=== PATIENT | female | born 1940 | race American Indian/Alaskan Native ===

== ENCOUNTER 2016-11-15 23:25 | Emergency (ER) | payer MEDICARE, OTHER ==
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
[2016-11-15 23:59] VITALS: TEMP 97.4
[2016-11-16 00:20] VITALS: RESP 18
[2016-11-16 00:45] VITALS: O2SAT 95
[2016-11-16 02:36] VITALS: BP 156/86; PULSE 73
== END 2016-11-16 02:35 | disposition home or self-care (01) ==
LOC: C.ER 23:25
DX: Z77.098 Contact with and (suspected) exposure to other hazardous, chiefly nonmedicinal, chemicals (principal)

== ENCOUNTER 2018-03-03 21:26 | Inpatient (IN) | payer MEDICARE, OTHER ==
--- NOTE | 2018-03-03 21:46 | C.PDOC ---
History Of Present Illness 77 y/o female brought by EMS from half-way for abnormal blood work. Patient is awake and alert, but non-verbal. Time Seen by Provider: 03/03/18 21:46 History Per: EMS History/Exam Limitations: clinical condition Onset/Duration Of Symptoms: Days Current Symptoms Are (Timing): Still Present Severity: Moderate Reports Recently: Seen In ED, Treated By A Physician, Hospitalized Recent travel outside of the [place]: No Additional History Per: EMS, Long Term Past Medical History Reviewed: Historical Data, Nursing Documentation, Vital Signs Vital Signs: Last Vital Signs Temp 97.6 F 03/03/18 21:44 Pulse 86 03/03/18 21:44 Resp 18 03/03/18 21:44 BP 143/80 03/03/18 21:44 Pulse Ox 100 03/03/18 23:21 - Medical History PMH: HTN, Chronic Kidney Disease Family History: States: Unknown Family Hx - Social History Hx Alcohol Use: No Hx Substance Use: No - Immunization History Hx Tetanus Toxoid Vaccination: No Hx Influenza Vaccination: No Hx Pneumococcal Vaccination: No Review Of Systems Review Of Systems: ROS cannot be obtained secondary to pt's inabilty to answer questions. (Patient is non-verbal) Physical Exam - Physical Exam Appears: Non-toxic Skin: Warm, Dry Head: Normacephalic Eye(s): bilateral: Normal Inspection Oral Mucosa: Dry Teeth: Edentulous Neck: Supple Chest: Symmetrical Cardiovascular: Rhythm Regular Respiratory: No Rales, No Rhonchi, No Wheezing Gastrointestinal/Abdominal: Bowel Sounds, Soft, No Tenderness Back: No CVA Tenderness Pelvic: Other (Indwelling Flores ) Extremity: Other (Arms and legs contracted) Extremity: Bilateral: Atraumatic, Normal Color And Temperature Pulses: Left Dorsalis Pedis: Normal, Right Dorsalis Pedis: Normal Neurological/Psych: Other (non verbal) Gait: Unable To Assess ED Course And Treatment - Laboratory Results Result Diagrams: 03/03/18 22:03 03/03/18 22:03 ECG: Interpreted By Me, Viewed By Me ECG Rhythm: Sinus Rhythm (85), Nonspecific Changes (left axis deviation) O2 Sat by Pulse Oximetry: 100 (RA) Pulse Ox Interpretation: Normal - Radiology CXR: Interpreted by Me, Viewed By Me CXR Interpretation: Yes: Other (sevcerely rotated). No: Infiltrates, Fracture, Pnemothorax Progress Note: Administered IV fluids. Ordered blood work, blood culture, CXR, and EKG. Disposition Discussed With Dr.: Josie Reyes Comment: accepted the pt on his service and took ove the care at 11:48 PM Doctor Will See Patient In The: Hospital Counseled Patient/Family Regarding: Studies Performed, Diagnosis - Disposition Disposition: HOSPITALIZED Disposition Time: 21:46 Condition: FAIR - POA Present On Arrival: Poor Glycemic Control - Clinical Impression Clinical Impression: Hypernatremia, Severe dehydration, Renal insufficiency - Scribe Statement The provider has reviewed the documentation as recorded by the Scribe Ellie Castrejon All medical record entries made by the Scribe were at my direction and personally dictated by me. I have reviewed the chart and agree that the record accurately reflects my personal performance of the history, physical exam, medical decision making, and the department course for this patient. I have also personally directed, reviewed, and agree with the discharge instructions and disposition. Decision To Admit - Pt Status Changed To: Hospital Disposition Of: Inpatient - Admit Certification Admit to Inpatient:: After my assessment, the patient will require hospitalization for at least two midnights. This is because of the severity of symptoms shown, intensity of services needed, and/or the medical risk in this patient being treated as an outpatient. - InPatient: Physician Admission Certification: I certify that this patient requires 2 or more midnights of care for the following reason:: After my assessment, the patient will require hospitalization for at least two midnights. This is because of the severity of symptoms shown, intensity of services needed, and/or the medical risk in this patient being treated as an outpatient. - . Bed Request Type: Telemetry Admitting Physician: Josie Reyes Patient Diagnosis: Hypernatremia, Severe dehydration, Renal insufficiency
[2018-03-03 21:57] VITALS: BMI 39.1
[2018-03-03 22:10] LABS: BASO # 0.1 K/uL (0.0-0.2); BASO % 0.7 % (0.0-2.0); EOS # 0.2 K/uL (0.0-0.7); HEMOGLOBIN 11.8 g/dL (11.0-16.0); LYMPH # 1.9 K/uL (1.0-4.3); LYMPH % 11.2 % (20.0-40.0); MEAN CELL VOLUME 92.7 fL (81.0-99.0); MEAN CORPUSCULAR HEMOGLOBIN 29.9 pg (27.0-31.0); MEAN CORPUSCULAR HGB CONC 32.3 g/dL (33.0-37.0); MEAN PLATELET VOLUME 8.2 fL (7.2-11.7); MONO # 0.8 K/uL (0.0-0.8); MONO % 4.7 % (0.0-10.0); NEUT # 13.9 K/uL (1.8-7.0); NEUT % 82.4 % (50.0-75.0); RBC 3.94 Mil/uL (3.80-5.20); RED CELL DISTRIBUTION WIDTH 15.7 % (11.5-14.5); WHITE BLOOD COUNT 16.8 K/uL (4.8-10.8)
[2018-03-03 22:25] LABS: INR 1.1; PROTHROMBIN TIME 12.1 SECONDS (9.7-12.2)
[2018-03-03 22:42] LABS: ALB/GLOB RATIO 1.1 (1.0-2.1); ALBUMIN 3.8 g/dL (3.5-5.0); CALCIUM 8.9 mg/dl (8.6-10.4)
[2018-03-03] MEDS: Sodium Chloride 0.9% 1,000 ML IV ONE (23:12)
[2018-03-03] MEDS ORDERED: Moxifloxacin IV 400mg/250ml NS 400 MG/250 ML BAG IVPB ONE (23:45)
[2018-03-03] MEDS ORDERED: Sodium Chloride 0.45% 1,000 ML IV SCH (23:45)
--- NOTE | 2018-03-04 02:04 | PCM.RRT ---
CO[facility] Nurses Assessment - Situation Date: 03/04/18 Time COATER HAND was called: 01:56 - Constitutional Appears: Unkempt, Chronically Ill - Eyes Additional Comments: Patient opens eyes to sternal rub, otherwise, keeps eyes closed and will not allow examination. - Respiratory Exam Respiratory Exam: Decreased Breath Sounds, NORMAL BREATHING PATTERN. absent: Rales, Rhonchi, Wheezes - Cardiovascular Exam Cardiovascular Exam: REGULAR RHYTHM, +S1, +S2 - GI/Abdominal Exam GI & Abdominal Exam: Soft, Normal Bowel Sounds - Neurological Exam Additional exam: Unable to examine- patient is aphasic, does not follow commands; opens eyes to sternal rub. - Extremities Exam Additional comments: Contracted upper extremities Plan - Assessment of Findings&Treatment Plan COATER HAND was called at 1:56am for hypotension. Patient was admitted for severe dehydration and just transferred to the floors. Vitals were taken when transferred to bed 653A and were 50/37, HR 76. Repeat BP was 52/36. Patient was placed on NS@200mls/hr in the ED. IV Fluids were continued at 200mls/hr. Patient was placed in trendelenburgs position. BP was rechecked- Right arm 85/60 , right leg 71/39. Bolus of 500cc started. Blood pressure post bolus: Right arm 80/51 HR 75, Right leg 108/69, HR 74. Patient is alert, eyes are open, and said "hi" in response to saying hello to her. Will continue NS@200mls/hr and reevaluate. BMP and CPK ordered stat. Home medication Amlodipine on hold.
[2018-03-04 02:46] LABS: URINE BACTERIA OCC (<OCC); URINE BILIRUBIN NEGATIVE (NEGATIVE); URINE BLOOD 3+ (NEGATIVE); URINE CLARITY Turbid (Clear); URINE GLUCOSE (UA) NORMAL (Normal); URINE LEUKOCYTE ESTERASE 3+ Leu/uL (Negative); URINE PROTEIN 2+ mg/dL (NEGATIVE); URINE UROBILINOGEN NORMAL mg/dL (0.2-1.0); WBC CLUMPS MANY /hpf
[2018-03-04 03:01] LABS: ALB/GLOB RATIO 1.1 (1.0-2.1); ALBUMIN 3.4 g/dL (3.5-5.0); CALCIUM 8.6 mg/dl (8.6-10.4)
[2018-03-04 03:06] LABS: CK-MB 7.43 ng/mL (0.0-3.38); TROPONIN I 0.116 ng/mL (0.00-0.120)
[2018-03-04 03:28] LABS: URINE COLOR RED (YELLOW)
[2018-03-04 06:21] LABS: BASO # 0.1 K/uL (0.0-0.2); BASO % 0.7 % (0.0-2.0); EOS # 0.2 K/uL (0.0-0.7); EOS % 1.3 % (0.0-4.0); HEMOGLOBIN 10.8 g/dL (11.0-16.0); LYMPH # 1.7 K/uL (1.0-4.3); LYMPH % 12.1 % (20.0-40.0); MEAN CELL VOLUME 92.4 fL (81.0-99.0); MEAN CORPUSCULAR HEMOGLOBIN 29.9 pg (27.0-31.0); MEAN CORPUSCULAR HGB CONC 32.4 g/dL (33.0-37.0); MEAN PLATELET VOLUME 8.4 fL (7.2-11.7); MONO # 0.7 K/uL (0.0-0.8); MONO % 5.3 % (0.0-10.0); NEUT # 11.2 K/uL (1.8-7.0); NEUT % 80.6 % (50.0-75.0); RBC 3.61 Mil/uL (3.80-5.20); RED CELL DISTRIBUTION WIDTH 15.6 % (11.5-14.5); WHITE BLOOD COUNT 13.9 K/uL (4.8-10.8)
[2018-03-04] MEDS ORDERED: Ciprofloxacin 200mg/100ml D5W 100 ML IVPB STA (07:19)
[2018-03-04] MEDS: Sodium Chloride 0.9% 1,000 ML IV ONE (07:49)
[2018-03-04] MEDS ORDERED: Albumin Human 25% (12.5 gm/50 ml) IV ONE (08:00)
[2018-03-04] MEDS ORDERED: Sodium Chloride 0.9% 500 ML IV SCH (08:15)
--- NOTE | 2018-03-04 08:37 | RAD ---
PROCEDURE: CHEST RADIOGRAPH, 1 VIEW HISTORY: Shortness of breath COMPARISON: None available. FINDINGS: LUNGS: There are low lung volumes. The lungs are clear. PLEURA: No pneumothorax or pleural fluid seen. CARDIOVASCULAR: Normal. OSSEOUS STRUCTURES: No significant abnormalities. VISUALIZED UPPER ABDOMEN: Normal. OTHER FINDINGS: None. IMPRESSION: No active pulmonary disease. Low lung volumes may be related to poor inspiratory effort.
--- NOTE | 2018-03-04 09:42 | CT ---
PROCEDURE: CT Abdomen and Pelvis without intravenous contrast HISTORY: renal colic COMPARISON: None. TECHNIQUE: CT scan of the abdomen and pelvis was performed without administration of intravenous contrast. Oral contrast was not administered. Coronal and sagittal reformatted images were obtained. Radiation dose: Total exam DLP = 1090.71 mGy-cm. This CT exam was performed using one or more of the following dose reduction techniques: Automated exposure control, adjustment of the mA and/or kV according to patient size, and/or use of iterative reconstruction technique. FINDINGS: LOWER THORAX: There is subsegmental atelectasis in the right medial lower lobe. The visualized left lung is clear. LIVER: Normal in size. No gross lesion or ductal dilatation. GALLBLADDER AND BILE DUCTS: The gallbladder is distended and there are large peripherally calcified gallstones. PANCREAS: Normal in size. No gross lesion or ductal dilatation. SPLEEN: Normal in size. ADRENALS: No discrete nodule. KIDNEYS AND URETERS: Both kidneys are normal in size without hydronephrosis or nephrolithiasis. Are few small simple cysts in the kidneys. VASCULATURE: No aortic aneurysm. BOWEL: The small bowel loops are normal in caliber. There is left colonic diverticulosis without CT evidence for acute diverticulitis. APPENDIX: Normal appendix. PERITONEUM: No free fluid. No free air. LYMPH NODES: No enlarged lymph nodes. BLADDER: Indwelling Flores catheter with subsequent partial decompression of the urinary bladder. Intraluminal air is related to catheterization. There is apparent severe circumferential mural thickening of the urinary bladder wall. REPRODUCTIVE: Surgically absent. BONES: There is levoscoliosis in the lumbar spine and diffuse bone demineralization with multilevel degenerative changes. There are age indeterminate but likely chronic osteoporotic compression fracture deformities in the L3 and L4 vertebral bodies. OTHER FINDINGS: None. IMPRESSION: 1. No nephrolithiasis, hydronephrosis or obstructive uropathy. 2. Indwelling Flores catheter within the urinary bladder with expected intraluminal air. Also noted is severe circumferential mural thickening of the urinary bladder wall which may be related to underdistention however cystitis is also a consideration. Please correlate with urine analysis. 3. Left colonic diverticulosis without CT evidence for acute diverticulitis
[2018-03-04 09:45] LABS: ABG ALLEN TEST POS; ARTERIAL BLOOD GAS O2 SAT 99.6 % (95-98); ARTERIAL BLOOD GAS PCO2 41 mm/Hg (35-45); ARTERIAL BLOOD GAS PH 7.43 (7.35-7.45); ARTERIAL BLOOD GAS PO2 117 mm/Hg (80-100); ARTERIAL BLOOD GAS TCO2 28.5 mmol/L (22-28)
[2018-03-04] MEDS ORDERED: Sodium Chloride 0.45% 1,000 ML IV SCH (10:00)
[2018-03-04] MEDS: Albumin Human 25% (12.5 gm/50 ml) IV SCH ×3 (11:13→23:18)
--- NOTE | 2018-03-04 12:00 | CP.PCM.CON ---
History of Present Illness - History of Present Illness History of Present Illness: INFECTIOUS DISEASE CONSULT. HPI; 77-year-old Afro-[place]ammarinese female with history of hypertension, chronic kidney disease, ? Old CVA, who was brought in from half-way unresponsive and with abnormal labs. 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 Patient was treated with IV fluids as she was found to be hyponatremic with increasing azotemia. Patient also was noted to have pyuria with clumps of WBCs and foul-smelling urine. Patient was given a dose off Avelox, and Cipro as noted. Patient also was treated with IV fluids and albumin as blood pressure was low. Patient is allergic to penicillin. INFECTIOUS DISEASE CONSULTATION REQUESTED BY DR GOMES for SEPSIS PROBABLY UTI /LEUKOCYTOSIS AND HYPOTENSION PATIENT ALSO HAS SACRAL DECUBITUS ULCERS BILATERAL BUTTOCKS STAGE 2 WITH EXCORIATION.PATIENT IS BEDBOUND AND NONVERBAL. HISTORY OBTAINED MAINLY FROM THE CHART AND FROM THE STAFF. A NEW Lerma WAS PLACED IN ICU AND REPEAT UA/URINE CULTURES WERE SENT DISCUSSED WITH THE STAFF. PMH: HTN, Chronic Kidney Disease Family History: States: Unknown Family Hx - Social History Hx Alcohol Use: No Hx Substance Use: No - Immunization History Hx Tetanus Toxoid Vaccination: No Hx Influenza Vaccination: No Hx Pneumococcal Vaccination: No ALLERGY;PENICILLIN. Review Of Systems Review Of Systems: ROS cannot be obtained secondary to pt's inabilty to answer questions. (Patient is non-verbal) Review of Systems - Review of Systems Systems not reviewed;Unavailable: Dementia Past Patient History - Past Medical History & Family History Past Medical History?: Yes - Past Social History Smoking Status: Unknown - CARDIAC Hx Cardiac Disorders: Yes Hx Hypertension: Yes - PULMONARY Hx Respiratory Disorders: No - NEUROLOGICAL Other/Comment: Unknown-Pt is aphasic - HEENT Other/Comment: Unknown - RENAL Hx Chronic Kidney Disease: Yes - MUSCULOSKELETAL/RHEUMATOLOGICAL Hx Falls: Yes - GENITOURINARY/GYNECOLOGICAL Other/Comment: per half-way lerma insertion in January 2018 - PSYCHIATRIC Hx Substance Use: No - SURGICAL HISTORY Hx Surgeries: Yes Hx Breast Biopsy: Yes Hx Section: Yes - ANESTHESIA Hx Anesthesia: Yes Meds Allergies/Adverse Reactions: Allergies Allergy/AdvReac Type Severity Reaction Status Date / Time Penicillins Allergy Intermediate Verified 03/03/18 21:55 - Medications Medications: Current Medications Albumin Human (Albumin Human 25% (12.5 Gm/50 Ml)) 25 gm IV Q6 [facility] Stop: 03/05/18 06:01 Last Admin: 03/04/18 11:13 Dose: 25 gm Aspirin (Aspirin Chewable) 81 mg PO DAILY [facility] Last Admin: 03/04/18 10:21 Dose: Not Given Heparin Sodium (Porcine) (Heparin) 5,000 units SC Q12 [facility] Last Admin: 03/04/18 10:21 Dose: 5,000 units Hydrocortisone Sodium Succinate (Solu-Cortef) 50 mg IV Q8 [facility] Last Admin: 03/04/18 07:51 Dose: 50 mg Sodium Chloride (Sodium Chloride 0.45%) 1,000 mls @ 50 mls/hr IV .Q20H [facility] Last Admin: 03/04/18 10:18 Dose: 50 mls/hr Pantoprazole Sodium (Protonix Inj) 40 mg IVP DAILY [facility] Last Admin: 03/04/18 10:21 Dose: 40 mg Physical Exam - Constitutional Appears: Older Than Stated Age, Confused - Head Exam Head Exam: NORMAL INSPECTION - Eye Exam Eye Exam: PERRL - ENT Exam ENT Exam: Mucous Membranes Dry, Normal Oropharynx - Neck Exam Neck exam: Positive for: Normal Inspection (AFEBRILE LOBE OF THE WOUND.) - Respiratory Exam Respiratory Exam: Clear to Auscultation Bilateral, NORMAL BREATHING PATTERN - Cardiovascular Exam Cardiovascular Exam: Tachycardia, REGULAR RHYTHM, +S1, +S2 - GI/Abdominal Exam GI & Abdominal Exam: Normal Bowel Sounds, Soft. absent: Organomegaly, Tenderness - Extremities Exam Extremities exam: Positive for: pedal pulses present. Negative for: calf tenderness, pedal edema - Neurological Exam Neurological exam: Altered, CN II-XII Intact - Psychiatric Exam Psychiatric exam: Flat Affect - Skin Skin Exam: Dry (b/l buttocks with decubitus ulcers stage 2.), Normal Color, Warm Results - Vital Signs Recent Vital Signs: Last Vital Signs Temp 98 F 03/04/18 05:00 Pulse 77 03/04/18 05:00 Resp 20 03/04/18 05:00 BP 122/65 03/04/18 05:00 Pulse Ox 99 03/04/18 05:00 - Labs Result Diagrams: 03/04/18 21:51 03/04/18 21:51 Labs: Laboratory Results - last 24 hr 03/03/18 03/03/18 03/03/18 21:36 22:03 22:03 WBC 16.8 H RBC 3.94 Hgb 11.8 Hct 36.5 MCV 92.7 MCH 29.9 MCHC 32.3 L RDW 15.7 H Plt Count 542 H MPV 8.2 Neut % (Auto) 82.4 H Lymph % (Auto) 11.2 L Wayne % (Auto) 4.7 Eos % (Auto) 1.0 Baso % (Auto) 0.7 Neut # (Auto) 13.9 H Lymph # (Auto) 1.9 Wayne # (Auto) 0.8 Eos # (Auto) 0.2 Baso # (Auto) 0.1 PT INR APTT Puncture Site pCO2 pO2 HCO3 ABG pH ABG Total CO2 ABG O2 Saturation ABG Base Excess Zhen Test ABG Potassium A-a O2 Difference Respiratory Index Glucose Lactate Liter Flow FiO2 Sodium 150 H Potassium 4.3 Chloride 105 Carbon Dioxide 27 Anion Gap 22 H BUN 140 H* Creatinine 3.2 H Est GFR ( Amer) 17 Est GFR (Non-Af Amer) 14 POC Glucose (mg/dL) 149 H Random Glucose 144 H Calcium 8.9 Phosphorus Magnesium Total Bilirubin 1.1 AST 38 H ALT 22 Alkaline Phosphatase 111 Total Creatine Kinase CK-MB (Mass) Troponin I Total Protein 7.0 Albumin 3.8 Globulin 3.3 Albumin/Globulin Ratio 1.1 Arterial Blood Potassium Urine Color Urine Clarity Urine pH Ur Specific [place] Urine Protein Urine Glucose (UA) Urine Ketones Urine Blood Urine Nitrate Urine Bilirubin Urine Urobilinogen Ur Leukocyte Esterase Urine WBC (Auto) Urine RBC (Auto) Urine WBC Clumps (Auto) Urine Bacteria 03/03/18 03/04/18 03/04/18 22:11 02:22 02:32 WBC RBC Hgb Hct MCV MCH MCHC RDW Plt Count MPV Neut % (Auto) Lymph % (Auto) Wayne % (Auto) Eos % (Auto) Baso % (Auto) Neut # (Auto) Lymph # (Auto) Wayne # (Auto) Eos # (Auto) Baso # (Auto) PT 12.1 INR 1.1 APTT 27 Puncture Site pCO2 pO2 HCO3 ABG pH ABG Total CO2 ABG O2 Saturation ABG Base Excess Zhen Test ABG Potassium A-a O2 Difference Respiratory Index Glucose Lactate Liter Flow FiO2 Sodium 151 H Potassium 4.3 Chloride 107 Carbon Dioxide 29 Anion Gap 19 BUN 137 H* Creatinine 3.4 H Est GFR ( Amer) 16 Est GFR (Non-Af Amer) 13 POC Glucose (mg/dL) 130 H Random Glucose 108 H Calcium 8.6 Phosphorus 5.0 H Magnesium 2.4 H Total Bilirubin 1.0 AST 30 ALT 24 Alkaline Phosphatase 91 Total Creatine Kinase 58 CK-MB (Mass) 7.43 H Troponin I 0.1160 Total Protein 6.6 Albumin 3.4 L Globulin 3.1 Albumin/Globulin Ratio 1.1 Arterial Blood Potassium Urine Color Urine Clarity Urine pH Ur Specific [place] Urine Protein Urine Glucose (UA) Urine Ketones Urine Blood Urine Nitrate Urine Bilirubin Urine Urobilinogen Ur Leukocyte Esterase Urine WBC (Auto) Urine RBC (Auto) Urine WBC Clumps (Auto) Urine Bacteria 03/04/18 03/04/18 03/04/18 02:32 06:11 09:40 WBC 13.9 H RBC 3.61 L Hgb 10.8 L Hct 33.3 L MCV 92.4 MCH 29.9 MCHC 32.4 L RDW 15.6 H Plt Count 478 H MPV 8.4 Neut % (Auto) 80.6 H Lymph % (Auto) 12.1 L Wayne % (Auto) 5.3 Eos % (Auto) 1.3 Baso % (Auto) 0.7 Neut # (Auto) 11.2 H Lymph # (Auto) 1.7 Wayne # (Auto) 0.7 Eos # (Auto) 0.2 Baso # (Auto) 0.1 PT INR APTT Puncture Site Rr pCO2 41 pO2 117 H HCO3 27.0 ABG pH 7.43 ABG Total CO2 28.5 H ABG O2 Saturation 99.6 H ABG Base Excess 2.6 Zhen Test Pos ABG Potassium 2.9 L A-a O2 Difference 46.0 Respiratory Index 0.4 Glucose 115 H Lactate 0.9 Liter Flow 3.0 FiO2 30.0 Sodium 148.0 Potassium Chloride 113.0 H Carbon Dioxide Anion Gap BUN Creatinine Est GFR ( Amer) Est GFR (Non-Af Amer) POC Glucose (mg/dL) Random Glucose Calcium Phosphorus Magnesium Total Bilirubin AST ALT Alkaline Phosphatase Total Creatine Kinase CK-MB (Mass) Troponin I Total Protein Albumin Globulin Albumin/Globulin Ratio Arterial Blood Potassium 2.9 L Urine Color Red Urine Clarity Turbid Urine pH 5.0 Ur Specific [place] 1.019 Urine Protein 2+ H Urine Glucose (UA) Normal Urine Ketones Negative Urine Blood 3+ H Urine Nitrate Negative Urine Bilirubin Negative Urine Urobilinogen Normal Ur Leukocyte Esterase 3+ H Urine WBC (Auto) 44899 H Urine RBC (Auto) 5101 H Urine WBC Clumps (Auto) Many H Urine Bacteria Occ H 03/04/18 11:08 WBC RBC Hgb Hct MCV MCH MCHC RDW Plt Count MPV Neut % (Auto) Lymph % (Auto) Wayne % (Auto) Eos % (Auto) Baso % (Auto) Neut # (Auto) Lymph # (Auto) Wayne # (Auto) Eos # (Auto) Baso # (Auto) PT INR APTT Puncture Site pCO2 pO2 HCO3 ABG pH ABG Total CO2 ABG O2 Saturation ABG Base Excess Zhen Test ABG Potassium A-a O2 Difference Respiratory Index Glucose Lactate Liter Flow FiO2 Sodium Potassium Chloride Carbon Dioxide Anion Gap BUN Creatinine Est GFR ( Amer) Est GFR (Non-Af Amer) POC Glucose (mg/dL) 121 H Random Glucose Calcium Phosphorus Magnesium Total Bilirubin AST ALT Alkaline Phosphatase Total Creatine Kinase CK-MB (Mass) Troponin I Total Protein Albumin Globulin Albumin/Globulin Ratio Arterial Blood Potassium Urine Color Urine Clarity Urine pH Ur Specific [place] Urine Protein Urine Glucose (UA) Urine Ketones Urine Blood Urine Nitrate Urine Bilirubin Urine Urobilinogen Ur Leukocyte Esterase Urine WBC (Auto) Urine RBC (Auto) Urine WBC Clumps (Auto) Urine Bacteria - Imaging and Cardiology Chest x-ray Status: Report reviewed by me (NO ACTIVE DISEASE. lOW LUNG VOLUMES.) Assessment & Plan (1) Sepsis associated hypotension Assessment and Plan: PANCULTURES REPEAT UA/URINE CULTURES ESR CRP. START IV DOXYCYCLINE 100 MG iv PIGGYBACK EVERY 12 HOURLY 03/04/18. IV FLUIDS/AND ALBUMIN PER POULTRY HATCHERY MANAGER. fOLLOW-UP CULTURES TO ADJUST ANTIBIOTICS. Status: Acute (2) UTI (urinary tract infection) with pyuria Assessment and Plan: U/A TURBID AND WITH PYURIA. START iv DOXYCYCLINE 100 MG EVERY 12 HOURLY.03/04/18 PATIENT GOT A DOSE OF iv aVELOX/AND iv CIPRO NOTED. PATIENT HAD Lerma CATHETER CHANGED TODAY 03/04/18 . URINE WAS FOUL SMELLING. Status: Acute (3) HERRERA (acute kidney injury) Assessment and Plan: RENAL ON BOARD. PRERENAL AZOTEMIA. IV FLUIDS PER RENAL/INTENSIVISTS. CT OF THE ABDOMEN AND PELVIS ORDERED BY INTENSIVISTS TO FOLLOW-UP OBSTRUCTIVE UROPATHY, NEPHROLITHIASIS OR HYDRONEPHROSIS Status: Acute (4) Hypernatremia Assessment and Plan: iv FLUIDS PER RENAL. SODIUM 151 fOLLOW-UP bmp AND RENAL FUNCTIONS CLOSELY Status: Acute (5) Renal insufficiency Assessment and Plan: CREAT 3.4/BUN 137. IV FLUIDS PER POULTRY HATCHERY MANAGER/RENAL. Status: Acute (6) Severe dehydration Status: Acute (7) Dementia Assessment and Plan: PATIENT HAS HISTORY OF DEMENTIA AND IS NONVERBAL. CONTRACTURES OF UPPER EXTREMITIES NOTED. Status: Acute
--- NOTE | 2018-03-04 12:54 | CP.PCM.CON ---
History of Present Illness - History of Present Illness History of Present Illness: 77 y/o [place] with unresponsiveness. Found to have advanced azotemia and hypernatremia; was on IV saline for dehydration While on medical floors suffered severe hypotensive episode and IV NS given and sent to ICU urine bloody with increased wbcs- being treated for sepsis now. PMH known for HTN, CKD. No other hx known Review of Systems - Review of Systems Systems not reviewed;Unavailable: Altered Mental Status Past Patient History - Past Medical History & Family History Past Medical History?: Yes - Past Social History Smoking Status: Unknown - CARDIAC Hx Cardiac Disorders: Yes Hx Hypertension: Yes - PULMONARY Hx Respiratory Disorders: No - NEUROLOGICAL Other/Comment: Unknown-Pt is aphasic - HEENT Other/Comment: Unknown - RENAL Hx Chronic Kidney Disease: Yes - MUSCULOSKELETAL/RHEUMATOLOGICAL Hx Falls: Yes - GENITOURINARY/GYNECOLOGICAL Other/Comment: per correction lerma insertion in January 2018 - PSYCHIATRIC Hx Substance Use: No - SURGICAL HISTORY Hx Surgeries: Yes Hx Breast Biopsy: Yes Hx Section: Yes - ANESTHESIA Hx Anesthesia: Yes Meds Allergies/Adverse Reactions: Allergies Allergy/AdvReac Type Severity Reaction Status Date / Time Penicillins Allergy Intermediate Verified 03/03/18 21:55 - Medications Medications: Current Medications Albumin Human (Albumin Human 25% (12.5 Gm/50 Ml)) 25 gm IV Q6 [facility] Stop: 03/05/18 06:01 Last Admin: 03/04/18 11:13 Dose: 25 gm Aspirin (Aspirin Chewable) 81 mg PO DAILY [facility] Last Admin: 03/04/18 10:21 Dose: Not Given Heparin Sodium (Porcine) (Heparin) 5,000 units SC Q12 [facility] Last Admin: 03/04/18 10:21 Dose: 5,000 units Hydrocortisone Sodium Succinate (Solu-Cortef) 50 mg IV Q8 [facility] Last Admin: 03/04/18 07:51 Dose: 50 mg Sodium Chloride (Sodium Chloride 0.45%) 1,000 mls @ 50 mls/hr IV .Q20H [facility] Last Admin: 03/04/18 10:18 Dose: 50 mls/hr Doxycycline Hyclate 100 mg/ (Sodium Chloride) 100 mls @ 100 mls/hr IVPB Q12H DYLLAN PRN Reason: Protocol Pantoprazole Sodium (Protonix Inj) 40 mg IVP DAILY [facility] Last Admin: 03/04/18 10:21 Dose: 40 mg Physical Exam - Constitutional Appears: Unkempt, Chronically Ill - Head Exam Head Exam: ATRAUMATIC, NORMAL INSPECTION - Neck Exam Neck exam: Positive for: Normal Inspection. Negative for: Tenderness - Respiratory Exam Respiratory Exam: Clear to Auscultation Bilateral, NORMAL BREATHING PATTERN - Cardiovascular Exam Cardiovascular Exam: REGULAR RHYTHM, +S1 - GI/Abdominal Exam GI & Abdominal Exam: Soft. absent: Tenderness - Extremities Exam Extremities exam: Positive for: normal inspection. Negative for: tenderness - Neurological Exam Neurological exam: Altered - Skin Skin Exam: Dry, Warm Results - Vital Signs Recent Vital Signs: Last Vital Signs Temp 98 F 03/04/18 05:00 Pulse 77 03/04/18 05:00 Resp 20 03/04/18 05:00 BP 122/65 03/04/18 05:00 Pulse Ox 99 03/04/18 05:00 - Labs Result Diagrams: 03/04/18 06:11 03/04/18 02:32 Labs: Laboratory Results - last 24 hr 03/03/18 03/03/18 03/03/18 21:36 22:03 22:03 WBC 16.8 H RBC 3.94 Hgb 11.8 Hct 36.5 MCV 92.7 MCH 29.9 MCHC 32.3 L RDW 15.7 H Plt Count 542 H MPV 8.2 Neut % (Auto) 82.4 H Lymph % (Auto) 11.2 L [place] % (Auto) 4.7 Eos % (Auto) 1.0 Baso % (Auto) 0.7 Neut # (Auto) 13.9 H Lymph # (Auto) 1.9 [place] # (Auto) 0.8 Eos # (Auto) 0.2 Baso # (Auto) 0.1 PT INR APTT Puncture Site pCO2 pO2 HCO3 ABG pH ABG Total CO2 ABG O2 Saturation ABG Base Excess Zhen Test ABG Potassium A-a O2 Difference Respiratory Index Glucose Lactate Liter Flow FiO2 Sodium 150 H Potassium 4.3 Chloride 105 Carbon Dioxide 27 Anion Gap 22 H BUN 140 H* Creatinine 3.2 H Est GFR ( Amer) 17 Est GFR (Non-Af Amer) 14 POC Glucose (mg/dL) 149 H Random Glucose 144 H Calcium 8.9 Phosphorus Magnesium Total Bilirubin 1.1 AST 38 H ALT 22 Alkaline Phosphatase 111 Total Creatine Kinase CK-MB (Mass) Troponin I Total Protein 7.0 Albumin 3.8 Globulin 3.3 Albumin/Globulin Ratio 1.1 Arterial Blood Potassium Urine Color Urine Clarity Urine pH Ur Specific [place] Urine Protein Urine Glucose (UA) Urine Ketones Urine Blood Urine Nitrate Urine Bilirubin Urine Urobilinogen Ur Leukocyte Esterase Urine WBC (Auto) Urine RBC (Auto) Urine WBC Clumps (Auto) Urine Bacteria 03/03/18 03/04/18 03/04/18 22:11 02:22 02:32 WBC RBC Hgb Hct MCV MCH MCHC RDW Plt Count MPV Neut % (Auto) Lymph % (Auto) [place] % (Auto) Eos % (Auto) Baso % (Auto) Neut # (Auto) Lymph # (Auto) [place] # (Auto) Eos # (Auto) Baso # (Auto) PT 12.1 INR 1.1 APTT 27 Puncture Site pCO2 pO2 HCO3 ABG pH ABG Total CO2 ABG O2 Saturation ABG Base Excess Zhen Test ABG Potassium A-a O2 Difference Respiratory Index Glucose Lactate Liter Flow FiO2 Sodium 151 H Potassium 4.3 Chloride 107 Carbon Dioxide 29 Anion Gap 19 BUN 137 H* Creatinine 3.4 H Est GFR ( Amer) 16 Est GFR (Non-Af Amer) 13 POC Glucose (mg/dL) 130 H Random Glucose 108 H Calcium 8.6 Phosphorus 5.0 H Magnesium 2.4 H Total Bilirubin 1.0 AST 30 ALT 24 Alkaline Phosphatase 91 Total Creatine Kinase 58 CK-MB (Mass) 7.43 H Troponin I 0.1160 Total Protein 6.6 Albumin 3.4 L Globulin 3.1 Albumin/Globulin Ratio 1.1 Arterial Blood Potassium Urine Color Urine Clarity Urine pH Ur Specific [place] Urine Protein Urine Glucose (UA) Urine Ketones Urine Blood Urine Nitrate Urine Bilirubin Urine Urobilinogen Ur Leukocyte Esterase Urine WBC (Auto) Urine RBC (Auto) Urine WBC Clumps (Auto) Urine Bacteria 03/04/18 03/04/18 03/04/18 02:32 06:11 09:40 WBC 13.9 H RBC 3.61 L Hgb 10.8 L Hct 33.3 L MCV 92.4 MCH 29.9 MCHC 32.4 L RDW 15.6 H Plt Count 478 H MPV 8.4 Neut % (Auto) 80.6 H Lymph % (Auto) 12.1 L [place] % (Auto) 5.3 Eos % (Auto) 1.3 Baso % (Auto) 0.7 Neut # (Auto) 11.2 H Lymph # (Auto) 1.7 [place] # (Auto) 0.7 Eos # (Auto) 0.2 Baso # (Auto) 0.1 PT INR APTT Puncture Site Rr pCO2 41 pO2 117 H HCO3 27.0 ABG pH 7.43 ABG Total CO2 28.5 H ABG O2 Saturation 99.6 H ABG Base Excess 2.6 Zhen Test Pos ABG Potassium 2.9 L A-a O2 Difference 46.0 Respiratory Index 0.4 Glucose 115 H Lactate 0.9 Liter Flow 3.0 FiO2 30.0 Sodium 148.0 Potassium Chloride 113.0 H Carbon Dioxide Anion Gap BUN Creatinine Est GFR ( Amer) Est GFR (Non-Af Amer) POC Glucose (mg/dL) Random Glucose Calcium Phosphorus Magnesium Total Bilirubin AST ALT Alkaline Phosphatase Total Creatine Kinase CK-MB (Mass) Troponin I Total Protein Albumin Globulin Albumin/Globulin Ratio Arterial Blood Potassium 2.9 L Urine Color Red Urine Clarity Turbid Urine pH 5.0 Ur Specific [place] 1.019 Urine Protein 2+ H Urine Glucose (UA) Normal Urine Ketones Negative Urine Blood 3+ H Urine Nitrate Negative Urine Bilirubin Negative Urine Urobilinogen Normal Ur Leukocyte Esterase 3+ H Urine WBC (Auto) 90478 H Urine RBC (Auto) 5101 H Urine WBC Clumps (Auto) Many H Urine Bacteria Occ H 03/04/18 11:08 WBC RBC Hgb Hct MCV MCH MCHC RDW Plt Count MPV Neut % (Auto) Lymph % (Auto) [place] % (Auto) Eos % (Auto) Baso % (Auto) Neut # (Auto) Lymph # (Auto) [place] # (Auto) Eos # (Auto) Baso # (Auto) PT INR APTT Puncture Site pCO2 pO2 HCO3 ABG pH ABG Total CO2 ABG O2 Saturation ABG Base Excess Zhen Test ABG Potassium A-a O2 Difference Respiratory Index Glucose Lactate Liter Flow FiO2 Sodium Potassium Chloride Carbon Dioxide Anion Gap BUN Creatinine Est GFR ( Amer) Est GFR (Non-Af Amer) POC Glucose (mg/dL) 121 H Random Glucose Calcium Phosphorus Magnesium Total Bilirubin AST ALT Alkaline Phosphatase Total Creatine Kinase CK-MB (Mass) Troponin I Total Protein Albumin Globulin Albumin/Globulin Ratio Arterial Blood Potassium Urine Color Urine Clarity Urine pH Ur Specific [place] Urine Protein Urine Glucose (UA) Urine Ketones Urine Blood Urine Nitrate Urine Bilirubin Urine Urobilinogen Ur Leukocyte Esterase Urine WBC (Auto) Urine RBC (Auto) Urine WBC Clumps (Auto) Urine Bacteria Assessment & Plan (1) HERRERA (acute kidney injury) Status: Acute (2) Hypernatremia Status: Acute (3) Severe dehydration Status: Acute - Assessment and Plan (Free Text) Plan: agree with treatment for UTI/sepsis if BP stabilizes and hypernatremia persiusts would change to IV D5W meanwhile increase fluid rehydration rate quantify protein excretion urine lytes
[2018-03-04] MEDS ORDERED: Sodium Chloride 0.9% 1,000 ML IV ONE ×4 (15:35→16:28)
--- NOTE | 2018-03-04 15:54 | CP.PCM.CON ---
<Penny Jacobs - Last Filed: 03/04/18 16:37> History of Present Illness - History of Present Illness History of Present Illness: 77 yo F brought in from detention, unresponsive and with abnormal labs, admitted to floor with azotemia, hypernatremia, dehydration, with UTI. 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 Pt had hypotensive event with BP 50/37, treated with IVF and admitted to ICU. ROS is unobtainable, as pt is non verbal. Review of Systems - Review of Systems Systems not reviewed;Unavailable: Altered Mental Status Past Patient History - Past Medical History & Family History Past Medical History?: Yes - Past Social History Smoking Status: Unknown - CARDIAC Hx Cardiac Disorders: Yes Hx Hypertension: Yes - PULMONARY Hx Respiratory Disorders: No - NEUROLOGICAL Other/Comment: Unknown-Pt is aphasic - HEENT Other/Comment: Unknown - RENAL Hx Chronic Kidney Disease: Yes - MUSCULOSKELETAL/RHEUMATOLOGICAL Hx Falls: Yes - GENITOURINARY/GYNECOLOGICAL Other/Comment: per detention lerma insertion in January 2018 - PSYCHIATRIC Hx Substance Use: No - SURGICAL HISTORY Hx Surgeries: Yes Hx Breast Biopsy: Yes Hx Section: Yes - ANESTHESIA Hx Anesthesia: Yes Meds Allergies/Adverse Reactions: Allergies Allergy/AdvReac Type Severity Reaction Status Date / Time Penicillins Allergy Intermediate Verified 03/03/18 21:55 - Medications Medications: Current Medications Albumin Human (Albumin Human 25% (12.5 Gm/50 Ml)) 25 gm IV Q6 [facility] Stop: 03/05/18 06:01 Last Admin: 03/04/18 11:13 Dose: 25 gm Aspirin (Aspirin Chewable) 81 mg PO DAILY [facility] Last Admin: 03/04/18 10:21 Dose: Not Given Heparin Sodium (Porcine) (Heparin) 5,000 units SC Q12 [facility] Last Admin: 03/04/18 10:21 Dose: 5,000 units Hydrocortisone Sodium Succinate (Solu-Cortef) 50 mg IV Q8 [facility] Last Admin: 03/04/18 14:14 Dose: 50 mg Sodium Chloride (Sodium Chloride 0.45%) 1,000 mls @ 50 mls/hr IV .Q20H [facility] Last Admin: 03/04/18 10:18 Dose: 50 mls/hr Doxycycline Hyclate 100 mg/ (Sodium Chloride) 100 mls @ 100 mls/hr IVPB Q12H [facility] PRN Reason: Protocol Last Admin: 03/04/18 14:14 Dose: 100 mls/hr Sodium Chloride (Sodium Chloride 0.9%) 1,000 mls @ 250 mls/hr IV .Q4H [facility] Stop: 03/04/18 19:34 Sodium Chloride (Sodium Chloride 0.9%) 1,000 mls @ 250 mls/hr IV .Q4H [facility] Stop: 03/04/18 19:35 Sodium Chloride (Sodium Chloride 0.9%) 1,000 mls @ 1,000 mls/hr IV .Q1H [facility] Stop: 03/04/18 16:35 Pantoprazole Sodium (Protonix Inj) 40 mg IVP DAILY [facility] Last Admin: 03/04/18 10:21 Dose: 40 mg Physical Exam - Constitutional Appears: Non-toxic, Other (pt contracted R>L) - Head Exam Head Exam: ATRAUMATIC, NORMAL INSPECTION, NORMOCEPHALIC - Eye Exam Eye Exam: Normal appearance - Respiratory Exam Respiratory Exam: Clear to Auscultation Bilateral, NORMAL BREATHING PATTERN - Cardiovascular Exam Cardiovascular Exam: REGULAR RHYTHM Results - Vital Signs Recent Vital Signs: Last Vital Signs Temp 97.3 F L 03/04/18 12:00 Pulse 70 03/04/18 13:20 Resp 20 03/04/18 13:20 BP 87/47 L 03/04/18 13:12 Pulse Ox 100 03/04/18 13:20 - Labs Result Diagrams: 03/04/18 06:11 03/04/18 02:32 Labs: Laboratory Results - last 24 hr 03/03/18 03/03/18 03/03/18 21:36 22:03 22:03 WBC 16.8 H RBC 3.94 Hgb 11.8 Hct 36.5 MCV 92.7 MCH 29.9 MCHC 32.3 L RDW 15.7 H Plt Count 542 H MPV 8.2 Neut % (Auto) 82.4 H Lymph % (Auto) 11.[address] % (Auto) 4.7 Eos % (Auto) 1.0 Baso % (Auto) 0.7 Neut # (Auto) 13.9 H Lymph # (Auto) 1.9 [place] # (Auto) 0.8 Eos # (Auto) 0.2 Baso # (Auto) 0.1 PT INR APTT Puncture Site pCO2 pO2 HCO3 ABG pH ABG Total CO2 ABG O2 Saturation ABG Base Excess Zhen Test ABG Potassium A-a O2 Difference Respiratory Index Glucose Lactate Liter Flow FiO2 Sodium 150 H Potassium 4.3 Chloride 105 Carbon Dioxide 27 Anion Gap 22 H BUN 140 H* Creatinine 3.2 H Est GFR ( Amer) 17 Est GFR (Non-Af Amer) 14 POC Glucose (mg/dL) 149 H Random Glucose 144 H Calcium 8.9 Phosphorus Magnesium Total Bilirubin 1.1 AST 38 H ALT 22 Alkaline Phosphatase 111 Total Creatine Kinase CK-MB (Mass) Troponin I Total Protein 7.0 Albumin 3.8 Globulin 3.3 Albumin/Globulin Ratio 1.1 Arterial Blood Potassium Urine Color Urine Clarity Urine pH Ur Specific Bernard Urine Protein Urine Glucose (UA) Urine Ketones Urine Blood Urine Nitrate Urine Bilirubin Urine Urobilinogen Ur Leukocyte Esterase Urine WBC (Auto) Urine RBC (Auto) Urine WBC Clumps (Auto) Urine Bacteria 03/03/18 03/04/18 03/04/18 22:11 02:22 02:32 WBC RBC Hgb Hct MCV MCH MCHC RDW Plt Count MPV Neut % (Auto) Lymph % (Auto) [place] % (Auto) Eos % (Auto) Baso % (Auto) Neut # (Auto) Lymph # (Auto) [place] # (Auto) Eos # (Auto) Baso # (Auto) PT 12.1 INR 1.1 APTT 27 Puncture Site pCO2 pO2 HCO3 ABG pH ABG Total CO2 ABG O2 Saturation ABG Base Excess Zhen Test ABG Potassium A-a O2 Difference Respiratory Index Glucose Lactate Liter Flow FiO2 Sodium 151 H Potassium 4.3 Chloride 107 Carbon Dioxide 29 Anion Gap 19 BUN 137 H* Creatinine 3.4 H Est GFR ( Amer) 16 Est GFR (Non-Af Amer) 13 POC Glucose (mg/dL) 130 H Random Glucose 108 H Calcium 8.6 Phosphorus 5.0 H Magnesium 2.4 H Total Bilirubin 1.0 AST 30 ALT 24 Alkaline Phosphatase 91 Total Creatine Kinase 58 CK-MB (Mass) 7.43 H Troponin I 0.1160 Total Protein 6.6 Albumin 3.4 L Globulin 3.1 Albumin/Globulin Ratio 1.1 Arterial Blood Potassium Urine Color Urine Clarity Urine pH Ur Specific Bernard Urine Protein Urine Glucose (UA) Urine Ketones Urine Blood Urine Nitrate Urine Bilirubin Urine Urobilinogen Ur Leukocyte Esterase Urine WBC (Auto) Urine RBC (Auto) Urine WBC Clumps (Auto) Urine Bacteria 03/04/18 03/04/18 03/04/18 02:32 06:11 09:40 WBC 13.9 H RBC 3.61 L Hgb 10.8 L Hct 33.3 L MCV 92.4 MCH 29.9 MCHC 32.4 L RDW 15.6 H Plt Count 478 H MPV 8.4 Neut % (Auto) 80.6 H Lymph % (Auto) 12.[address] % (Auto) 5.3 Eos % (Auto) 1.3 Baso % (Auto) 0.7 Neut # (Auto) 11.2 H Lymph # (Auto) 1.7 [place] # (Auto) 0.7 Eos # (Auto) 0.2 Baso # (Auto) 0.1 PT INR APTT Puncture Site Rr pCO2 41 pO2 117 H HCO3 27.0 ABG pH 7.43 ABG Total CO2 28.5 H ABG O2 Saturation 99.6 H ABG Base Excess 2.6 Zhen Test Pos ABG Potassium 2.9 L A-a O2 Difference 46.0 Respiratory Index 0.4 Glucose 115 H Lactate 0.9 Liter Flow 3.0 FiO2 30.0 Sodium 148.0 Potassium Chloride 113.0 H Carbon Dioxide Anion Gap BUN Creatinine Est GFR ( Amer) Est GFR (Non-Af Amer) POC Glucose (mg/dL) Random Glucose Calcium Phosphorus Magnesium Total Bilirubin AST ALT Alkaline Phosphatase Total Creatine Kinase CK-MB (Mass) Troponin I Total Protein Albumin Globulin Albumin/Globulin Ratio Arterial Blood Potassium 2.9 L Urine Color Red Urine Clarity Turbid Urine pH 5.0 Ur Specific Bernard 1.019 Urine Protein 2+ H Urine Glucose (UA) Normal Urine Ketones Negative Urine Blood 3+ H Urine Nitrate Negative Urine Bilirubin Negative Urine Urobilinogen Normal Ur Leukocyte Esterase 3+ H Urine WBC (Auto) 75350 H Urine RBC (Auto) 5101 H Urine WBC Clumps (Auto) Many H Urine Bacteria Occ H 03/04/18 11:08 WBC RBC Hgb Hct MCV MCH MCHC RDW Plt Count MPV Neut % (Auto) Lymph % (Auto) [place] % (Auto) Eos % (Auto) Baso % (Auto) Neut # (Auto) Lymph # (Auto) [place] # (Auto) Eos # (Auto) Baso # (Auto) PT INR APTT Puncture Site pCO2 pO2 HCO3 ABG pH ABG Total CO2 ABG O2 Saturation ABG Base Excess Zhen Test ABG Potassium A-a O2 Difference Respiratory Index Glucose Lactate Liter Flow FiO2 Sodium Potassium Chloride Carbon Dioxide Anion Gap BUN Creatinine Est GFR ( Amer) Est GFR (Non-Af Amer) POC Glucose (mg/dL) 121 H Random Glucose Calcium Phosphorus Magnesium Total Bilirubin AST ALT Alkaline Phosphatase Total Creatine Kinase CK-MB (Mass) Troponin I Total Protein Albumin Globulin Albumin/Globulin Ratio Arterial Blood Potassium Urine Color Urine Clarity Urine pH Ur Specific [place] Urine Protein Urine Glucose (UA) Urine Ketones Urine Blood Urine Nitrate Urine Bilirubin Urine Urobilinogen Ur Leukocyte Esterase Urine WBC (Auto) Urine RBC (Auto) Urine WBC Clumps (Auto) Urine Bacteria Assessment & Plan - Assessment and Plan (Free Text) Assessment: 77 yo F brought in from detention due to abnormal labs 1. Hypotension -1/2NS @50cc/hr -NS 2L bolus -albumin 25% 25g Q6 -solu-cortef 50mg IV Q8 2. UTI -doxy 100mg Q12 -consult ID Dr. Castelan Ppx -heparin 5000U sc Q12 -protonix 40mg -SCD <Cali Kitchen - Last Filed: 03/04/18 21:18> Meds - Medications Medications: Current Medications Albumin Human (Albumin Human 25% (12.5 Gm/50 Ml)) 25 gm IV Q6 [facility] Stop: 03/05/18 06:01 Last Admin: 03/04/18 17:46 Dose: 25 gm Aspirin (Aspirin Chewable) 81 mg PO DAILY [facility] Last Admin: 03/04/18 10:21 Dose: Not Given Heparin Sodium (Porcine) (Heparin) 5,000 units SC Q12 [facility] Last Admin: 03/04/18 10:21 Dose: 5,000 units Hydrocortisone Sodium Succinate (Solu-Cortef) 50 mg IV Q8 [facility] Last Admin: 03/04/18 14:14 Dose: 50 mg Sodium Chloride (Sodium Chloride 0.45%) 1,000 mls @ 50 mls/hr IV .Q20H [facility] Last Admin: 03/04/18 10:18 Dose: 50 mls/hr Doxycycline Hyclate 100 mg/ (Sodium Chloride) 100 mls @ 100 mls/hr IVPB Q12H [facility] PRN Reason: Protocol Last Admin: 03/04/18 14:14 Dose: 100 mls/hr Pantoprazole Sodium (Protonix Inj) 40 mg IVP DAILY [facility] Last Admin: 03/04/18 10:21 Dose: 40 mg Results - Vital Signs Recent Vital Signs: Last Vital Signs Temp 98.3 F 03/04/18 20:00 Pulse 65 03/04/18 20:42 Resp 18 03/04/18 20:42 BP 94/56 L 03/04/18 20:42 Pulse Ox 100 03/04/18 20:42 - Labs Result Diagrams: 03/04/18 06:11 03/04/18 02:32 Labs: Laboratory Results - last 24 hr 03/03/18 03/03/18 03/03/18 21:36 22:03 22:03 WBC 16.8 H RBC 3.94 Hgb 11.8 Hct 36.5 MCV 92.7 MCH 29.9 MCHC 32.3 L RDW 15.7 H Plt Count 542 H MPV 8.2 Neut % (Auto) 82.4 H Lymph % (Auto) 11.[address] % (Auto) 4.7 Eos % (Auto) 1.0 Baso % (Auto) 0.7 Neut # (Auto) 13.9 H Lymph # (Auto) 1.9 [place] # (Auto) 0.8 Eos # (Auto) 0.2 Baso # (Auto) 0.1 PT INR APTT Puncture Site pCO2 pO2 HCO3 ABG pH ABG Total CO2 ABG O2 Saturation ABG Base Excess Zhen Test ABG Potassium A-a O2 Difference Respiratory Index Glucose Lactate Liter Flow FiO2 Sodium 150 H Potassium 4.3 Chloride 105 Carbon Dioxide 27 Anion Gap 22 H BUN 140 H* Creatinine 3.2 H Est GFR ( Amer) 17 Est GFR (Non-Af Amer) 14 POC Glucose (mg/dL) 149 H Random Glucose 144 H Calcium 8.9 Phosphorus Magnesium Total Bilirubin 1.1 AST 38 H ALT 22 Alkaline Phosphatase 111 Total Creatine Kinase CK-MB (Mass) Troponin I Total Protein 7.0 Albumin 3.8 Globulin 3.3 Albumin/Globulin Ratio 1.1 Arterial Blood Potassium Urine Color Urine Clarity Urine pH Ur Specific Bernard Urine Protein Urine Glucose (UA) Urine Ketones Urine Blood Urine Nitrate Urine Bilirubin Urine Urobilinogen Ur Leukocyte Esterase Urine WBC (Auto) Urine RBC (Auto) Urine WBC Clumps (Auto) Ur Squamous Epith Cells Urine Bacteria Ur Random Sodium 0703/04/18 03/04/18 22:11 02:22 02:32 WBC RBC Hgb Hct MCV MCH MCHC RDW Plt Count MPV Neut % (Auto) Lymph % (Auto) [place] % (Auto) Eos % (Auto) Baso % (Auto) Neut # (Auto) Lymph # (Auto) [place] # (Auto) Eos # (Auto) Baso # (Auto) PT 12.1 INR 1.1 APTT 27 Puncture Site pCO2 pO2 HCO3 ABG pH ABG Total CO2 ABG O2 Saturation ABG Base Excess Zhen Test ABG Potassium A-a O2 Difference Respiratory Index Glucose Lactate Liter Flow FiO2 Sodium 151 H Potassium 4.3 Chloride 107 Carbon Dioxide 29 Anion Gap 19 BUN 137 H* Creatinine 3.4 H Est GFR ( Amer) 16 Est GFR (Non-Af Amer) 13 POC Glucose (mg/dL) 130 H Random Glucose 108 H Calcium 8.6 Phosphorus 5.0 H Magnesium 2.4 H Total Bilirubin 1.0 AST 30 ALT 24 Alkaline Phosphatase 91 Total Creatine Kinase 58 CK-MB (Mass) 7.43 H Troponin I 0.1160 Total Protein 6.6 Albumin 3.4 L Globulin 3.1 Albumin/Globulin Ratio 1.1 Arterial Blood Potassium Urine Color Urine Clarity Urine pH Ur Specific [place] Urine Protein Urine Glucose (UA) Urine Ketones Urine Blood Urine Nitrate Urine Bilirubin Urine Urobilinogen Ur Leukocyte Esterase Urine WBC (Auto) Urine RBC (Auto) Urine WBC Clumps (Auto) Ur Squamous Epith Cells Urine Bacteria Ur Random Sodium 03/04/18 03/04/18 03/04/18 02:32 06:11 09:40 WBC 13.9 H RBC 3.61 L Hgb 10.8 L Hct 33.3 L MCV 92.4 MCH 29.9 MCHC 32.4 L RDW 15.6 H Plt Count 478 H MPV 8.4 Neut % (Auto) 80.6 H Lymph % (Auto) 12.[address] [place] % (Auto) 5.3 Eos % (Auto) 1.3 Baso % (Auto) 0.7 Neut # (Auto) 11.2 H Lymph # (Auto) 1.7 [place] # (Auto) 0.7 Eos # (Auto) 0.2 Baso # (Auto) 0.1 PT INR APTT Puncture Site Rr pCO2 41 pO2 117 H HCO3 27.0 ABG pH 7.43 ABG Total CO2 28.5 H ABG O2 Saturation 99.6 H ABG Base Excess 2.6 Zhen Test Pos ABG Potassium 2.9 L A-a O2 Difference 46.0 Respiratory Index 0.4 Glucose 115 H Lactate 0.9 Liter Flow 3.0 FiO2 30.0 Sodium 148.0 Potassium Chloride 113.0 H Carbon Dioxide Anion Gap BUN Creatinine Est GFR ( Amer) Est GFR (Non-Af Amer) POC Glucose (mg/dL) Random Glucose Calcium Phosphorus Magnesium Total Bilirubin AST ALT Alkaline Phosphatase Total Creatine Kinase CK-MB (Mass) Troponin I Total Protein Albumin Globulin Albumin/Globulin Ratio Arterial Blood Potassium 2.9 L Urine Color Red Urine Clarity Turbid Urine pH 5.0 Ur Specific Bernard 1.019 Urine Protein 2+ H Urine Glucose (UA) Normal Urine Ketones Negative Urine Blood 3+ H Urine Nitrate Negative Urine Bilirubin Negative Urine Urobilinogen Normal Ur Leukocyte Esterase 3+ H Urine WBC (Auto) 36811 H Urine RBC (Auto) 5101 H Urine WBC Clumps (Auto) Many H Ur Squamous Epith Cells Urine Bacteria Occ H Ur Random Sodium 03/04/18 03/04/18 03/04/18 11:08 17:34 18:21 WBC RBC Hgb Hct MCV MCH MCHC RDW Plt Count MPV Neut % (Auto) Lymph % (Auto) [place] % (Auto) Eos % (Auto) Baso % (Auto) Neut # (Auto) Lymph # (Auto) [place] # (Auto) Eos # (Auto) Baso # (Auto) PT INR APTT Puncture Site pCO2 pO2 HCO3 ABG pH ABG Total CO2 ABG O2 Saturation ABG Base Excess Zhen Test ABG Potassium A-a O2 Difference Respiratory Index Glucose Lactate Liter Flow FiO2 Sodium Potassium Chloride Carbon Dioxide Anion Gap BUN Creatinine Est GFR ( Amer) Est GFR (Non-Af Amer) POC Glucose (mg/dL) 121 H 149 H Random Glucose Calcium Phosphorus Magnesium Total Bilirubin AST ALT Alkaline Phosphatase Total Creatine Kinase CK-MB (Mass) Troponin I Total Protein Albumin Globulin Albumin/Globulin Ratio Arterial Blood Potassium Urine Color Urine Clarity Urine pH Ur Specific [place] Urine Protein Urine Glucose (UA) Urine Ketones Urine Blood Urine Nitrate Urine Bilirubin Urine Urobilinogen Ur Leukocyte Esterase Urine WBC (Auto) Urine RBC (Auto) Urine WBC Clumps (Auto) Ur Squamous Epith Cells Urine Bacteria Ur Random Sodium 38 03/04/18 18:32 WBC RBC Hgb Hct MCV MCH MCHC RDW Plt Count MPV Neut % (Auto) Lymph % (Auto) [place] % (Auto) Eos % (Auto) Baso % (Auto) Neut # (Auto) Lymph # (Auto) [place] # (Auto) Eos # (Auto) Baso # (Auto) PT INR APTT Puncture Site pCO2 pO2 HCO3 ABG pH ABG Total CO2 ABG O2 Saturation ABG Base Excess Zhen Test ABG Potassium A-a O2 Difference Respiratory Index Glucose Lactate Liter Flow FiO2 Sodium Potassium Chloride Carbon Dioxide Anion Gap BUN Creatinine Est GFR ( Amer) Est GFR (Non-Af Amer) POC Glucose (mg/dL) Random Glucose Calcium Phosphorus Magnesium Total Bilirubin AST ALT Alkaline Phosphatase Total Creatine Kinase CK-MB (Mass) Troponin I Total Protein Albumin Globulin Albumin/Globulin Ratio Arterial Blood Potassium Urine Color Yellow Urine Clarity Turbid Urine pH 5.0 Ur Specific Bernard 1.015 Urine Protein 2+ H Urine Glucose (UA) Normal Urine Ketones Negative Urine Blood 3+ H Urine Nitrate Negative Urine Bilirubin Negative Urine Urobilinogen Normal Ur Leukocyte Esterase 3+ H Urine WBC (Auto) 1751 H Urine RBC (Auto) 672 H Urine WBC Clumps (Auto) Ur Squamous Epith Cells 4 Urine Bacteria Ur Random Sodium Assessment & Plan - Assessment and Plan (Free Text) Assessment: Patient seen and examined at bedside. PAtient remaind non verbal. Patient's home medications include ACEI. -HERRERA: likely 2nd acei and poor hydration, continue IV fluids, hold acei -sepsis: source likely urine as polys in urine, of note lerma was placed in detention, not in shockm lactic normal, map >65 off pressors -Anemia: check iron profile, b12/folate, fecal occult blood, monitor serial cbc -will start PEg tube feeds -Hypernetremia: check urine osmol and serum osmol -ISS lispro -check TSH, -continue dvt/pud ppx -will hold off on HD until nephrology input and failure of conservative management. d/w nursing - Date & Time Date: 03/04/18 Time: 19:00
[2018-03-04 18:47] LABS: SQUAMOUS EPITHIAL 4 /hpf (0-5); URINE BILIRUBIN NEGATIVE (NEGATIVE); URINE BLOOD 3+ (NEGATIVE); URINE CLARITY Turbid (Clear); URINE COLOR Yellow (YELLOW); URINE GLUCOSE (UA) NORMAL (Normal); URINE LEUKOCYTE ESTERASE 3+ Leu/uL (Negative); URINE PROTEIN 2+ mg/dL (NEGATIVE); URINE UROBILINOGEN NORMAL mg/dL (0.2-1.0)
[2018-03-04 21:55] LABS: BASO % 0.1 % (0.0-2.0); HEMOGLOBIN 9.7 g/dL (11.0-16.0); LYMPH # 0.4 K/uL (1.0-4.3); LYMPH % 3.8 % (20.0-40.0); MEAN CELL VOLUME 92.5 fL (81.0-99.0); MEAN CORPUSCULAR HEMOGLOBIN 30.1 pg (27.0-31.0); MEAN CORPUSCULAR HGB CONC 32.6 g/dL (33.0-37.0); MEAN PLATELET VOLUME 7.9 fL (7.2-11.7); MONO # 0.1 K/uL (0.0-0.8); MONO % 0.8 % (0.0-10.0); NEUT # 10.1 K/uL (1.8-7.0); NEUT % 95.3 % (50.0-75.0); PLATELET COUNT 393 K/uL (130-400); RBC 3.22 Mil/uL (3.80-5.20); RED CELL DISTRIBUTION WIDTH 15.7 % (11.5-14.5); WHITE BLOOD COUNT 10.7 K/uL (4.8-10.8)
[2018-03-04 22:01] LABS: SQUAMOUS EPITHIAL 3 /hpf (0-5); URINE BACTERIA MOD (<OCC); URINE BILIRUBIN NEGATIVE (NEGATIVE); URINE BLOOD 3+ (NEGATIVE); URINE CLARITY Turbid (Clear); URINE COLOR Yellow (YELLOW); URINE GLUCOSE (UA) NORMAL (Normal); URINE LEUKOCYTE ESTERASE 3+ Leu/uL (Negative); URINE PROTEIN 2+ mg/dL (NEGATIVE); URINE UROBILINOGEN NORMAL mg/dL (0.2-1.0)
[2018-03-04 22:02] LABS: ABG ALLEN TEST UNABLE; ARTERIAL BLOOD GAS O2 SAT 99.7 % (95-98); ARTERIAL BLOOD GAS PCO2 39 mm/Hg (35-45); ARTERIAL BLOOD GAS PH 7.41 (7.35-7.45); ARTERIAL BLOOD GAS PO2 104 mm/Hg (80-100); ARTERIAL BLOOD GAS TCO2 25.9 mmol/L (22-28)
[2018-03-04 22:15] LABS: IRON 56 ug/dL (37-170)
[2018-03-04 22:22] LABS: ALB/GLOB RATIO 1.5 (1.0-2.1); CALCIUM 8.4 mg/dl (8.6-10.4)
[2018-03-04 22:25] LABS: % IRON SATURATION 32 (20-55); TOTAL IRON BINDING CAPACITY 175 ug/dL (250-450)
--- NOTE | 2018-03-04 22:31 | CP.PCM.HP ---
History of Present Illness - History of Present Illness History of Present Illness: Chief complaint: Abnormal blood works HPI: 77-year-old female with a history of advanced dementia, correction resident, also history of hypertension, associated with contractures, not eating well recently, and was able to have PEG tube placement. Patient was being evaluated for PEG tube, and preoperative blood works was done prior to the hospitalization. Labs was showing evidence of severe renal function impairment, elevated sodium level, and the patient was immediately transferred to the [facility] (formerly [facility]). I spoke to the patient's PMD from the correction in about the patient. I also spoke to the patient's next of kin power of rigging loft mechanic. Patient is now in the intensive care unit. Initially patient was admitted to the telemetry monitoring, but because of the hypotension rapid response was called, then patient was transferred to the intensive care unit. Patient is now nonverbal, opening her eyes with the extremity. Not in any distress. Patient also has stage I sacral decubiti. Poor poor oral intake noted. Past medical history: Advanced dementia, hypertension, renal insufficiency, sacral decubiti, contractures. Surgical history: None Family history: Noncontributory Allergies: Penicillin Personal history: Patient is a non-smoker nonalcoholic but patient is currently living in a correction. Review of system: Patient is opening her eyes spontaneously. He is able to track. Opening her eyes with the deep stimuli. Mild tachypnea noted. Patient is also having contractures. Sacral decubiti noted. Patient is nonverbal On examination: Vital signs noted. Hypotension noted. Saturation is 97%. Chest bilateral good air entry. No wheezing or rales noted. Regular heart sound. Contractures of the upper extremities and lower extremities noted. Edema negative Patient's labs reviewed Sodium 150, BUN 140, creatinine 3.2, liver function test is normal. WBC 16.8 hemoglobin 11.8 hematocrit 36.5 elevated platelets noted. Chest x-ray nonspecific Urine analysis showing evidence of severe elevated WBC, LE positive Assessment and recommendation: 77-year-old female with a history of advanced dementia, hypertension, dysphagia , sacral decubiti admitted to the hospital to the intensive care unit with acute renal insufficiency, and associated with urinary tract infection, and also severe dehydration. Hyponatremia. Patient is currently receiving intravenous IV fluid. Close monitoring of the vital signs noted. Input output monitoring. DVT GI prophylaxis. Patient will possibly need PEG tube feeding. GI evaluation may be needed. Meanwhile I spoke to the patient's power of rigging loft mechanic. They understand patient's condition. There agreeing for PEG tube feeding, and if needed hemodialysis also. Meanwhile will continue the current aggressive treatment. Prognosis guarded. Vital signs are stable. DVT GI prophylaxis and will follow the patient Present on Admission - Present on Admission Any Indicators Present on Admission: No History of DVT/PE: No History of Uncontrolled Diabetes: No Urinary Catheter: No Decubitus Ulcer Present: No Past Patient History - Past Medical History & Family History Past Medical History?: Yes - Past Social History Smoking Status: Unknown - CARDIAC Hx Cardiac Disorders: Yes Hx Hypertension: Yes - PULMONARY Hx Respiratory Disorders: No - NEUROLOGICAL Other/Comment: Unknown-Pt is aphasic - HEENT Other/Comment: Unknown - RENAL Hx Chronic Kidney Disease: Yes - MUSCULOSKELETAL/RHEUMATOLOGICAL Hx Falls: Yes - GENITOURINARY/GYNECOLOGICAL Other/Comment: per correction lerma insertion in January 2018 - PSYCHIATRIC Hx Substance Use: No - SURGICAL HISTORY Hx Surgeries: Yes Hx Breast Biopsy: Yes Hx Section: Yes - ANESTHESIA Hx Anesthesia: Yes Meds Allergies/Adverse Reactions: Allergies Allergy/AdvReac Type Severity Reaction Status Date / Time Penicillins Allergy Intermediate Verified 03/03/18 21:55 Results - Vital Signs Recent Vital Signs: Last Vital Signs Temp 98.3 F 03/04/18 20:00 Pulse 77 03/04/18 22:12 Resp 24 03/04/18 22:12 BP 102/64 03/04/18 22:12 Pulse Ox 100 03/04/18 22:12 - Labs Result Diagrams: 03/04/18 21:51 03/04/18 21:51 Labs: Laboratory Results - last 24 hr 03/03/18 03/03/18 03/04/18 21:36 22:03 02:22 WBC RBC Hgb Hct MCV MCH MCHC RDW Plt Count MPV Neut % (Auto) Lymph % (Auto) [place] % (Auto) Eos % (Auto) Baso % (Auto) Neut # (Auto) Lymph # (Auto) [place] # (Auto) Eos # (Auto) Baso # (Auto) Puncture Site pCO2 pO2 HCO3 ABG pH ABG Total CO2 ABG O2 Saturation ABG Base Excess Zhen Test ABG Potassium A-a O2 Difference Respiratory Index Glucose Lactate Liter Flow FiO2 Sodium 150 H Potassium 4.3 Chloride 105 Carbon Dioxide 27 Anion Gap 22 H BUN 140 H* Creatinine 3.2 H Est GFR ( Amer) 17 Est GFR (Non-Af Amer) 14 POC Glucose (mg/dL) 149 H 130 H Random Glucose 144 H Calcium 8.9 Phosphorus Magnesium Iron TIBC % Saturation Total Bilirubin 1.1 AST 38 H ALT 22 Alkaline Phosphatase 111 Total Creatine Kinase CK-MB (Mass) Troponin I Total Protein 7.0 Albumin 3.8 Globulin 3.3 Albumin/Globulin Ratio 1.1 Arterial Blood Potassium Urine Color Urine Clarity Urine pH Ur Specific [place] Urine Protein Urine Glucose (UA) Urine Ketones Urine Blood Urine Nitrate Urine Bilirubin Urine Urobilinogen Ur Leukocyte Esterase Urine WBC (Auto) Urine RBC (Auto) Urine WBC Clumps (Auto) Ur Squamous Epith Cells Urine Bacteria Ur Random Sodium 03/04/18 03/04/18 03/04/18 02:32 02:32 06:11 WBC 13.9 H RBC 3.61 L Hgb 10.8 L Hct 33.3 L MCV 92.4 MCH 29.9 MCHC 32.4 L RDW 15.6 H Plt Count 478 H MPV 8.4 Neut % (Auto) 80.6 H Lymph % (Auto) 12.1 L [place] % (Auto) 5.3 Eos % (Auto) 1.3 Baso % (Auto) 0.7 Neut # (Auto) 11.2 H Lymph # (Auto) 1.7 [place] # (Auto) 0.7 Eos # (Auto) 0.2 Baso # (Auto) 0.1 Puncture Site pCO2 pO2 HCO3 ABG pH ABG Total CO2 ABG O2 Saturation ABG Base Excess Zhen Test ABG Potassium A-a O2 Difference Respiratory Index Glucose Lactate Liter Flow FiO2 Sodium 151 H Potassium 4.3 Chloride 107 Carbon Dioxide 29 Anion Gap 19 BUN 137 H* Creatinine 3.4 H Est GFR ( Amer) 16 Est GFR (Non-Af Amer) 13 POC Glucose (mg/dL) Random Glucose 108 H Calcium 8.6 Phosphorus 5.0 H Magnesium 2.4 H Iron TIBC % Saturation Total Bilirubin 1.0 AST 30 ALT 24 Alkaline Phosphatase 91 Total Creatine Kinase 58 CK-MB (Mass) 7.43 H Troponin I 0.1160 Total Protein 6.6 Albumin 3.4 L Globulin 3.1 Albumin/Globulin Ratio 1.1 Arterial Blood Potassium Urine Color Red Urine Clarity Turbid Urine pH 5.0 Ur Specific [place] 1.019 Urine Protein 2+ H Urine Glucose (UA) Normal Urine Ketones Negative Urine Blood 3+ H Urine Nitrate Negative Urine Bilirubin Negative Urine Urobilinogen Normal Ur Leukocyte Esterase 3+ H Urine WBC (Auto) 33830 H Urine RBC (Auto) 5101 H Urine WBC Clumps (Auto) Many H Ur Squamous Epith Cells Urine Bacteria Occ H Ur Random Sodium 03/04/18 03/04/18 03/04/18 09:40 11:08 17:34 WBC RBC Hgb Hct MCV MCH MCHC RDW Plt Count MPV Neut % (Auto) Lymph % (Auto) [place] % (Auto) Eos % (Auto) Baso % (Auto) Neut # (Auto) Lymph # (Auto) [place] # (Auto) Eos # (Auto) Baso # (Auto) Puncture Site Rr pCO2 41 pO2 117 H HCO3 27.0 ABG pH 7.43 ABG Total CO2 28.5 H ABG O2 Saturation 99.6 H ABG Base Excess 2.6 Zhen Test Pos ABG Potassium 2.9 L A-a O2 Difference 46.0 Respiratory Index 0.4 Glucose 115 H Lactate 0.9 Liter Flow 3.0 FiO2 30.0 Sodium 148.0 Potassium Chloride 113.0 H Carbon Dioxide Anion Gap BUN Creatinine Est GFR ( Amer) Est GFR (Non-Af Amer) POC Glucose (mg/dL) 121 H Random Glucose Calcium Phosphorus Magnesium Iron TIBC % Saturation Total Bilirubin AST ALT Alkaline Phosphatase Total Creatine Kinase CK-MB (Mass) Troponin I Total Protein Albumin Globulin Albumin/Globulin Ratio Arterial Blood Potassium 2.9 L Urine Color Urine Clarity Urine pH Ur Specific [place] Urine Protein Urine Glucose (UA) Urine Ketones Urine Blood Urine Nitrate Urine Bilirubin Urine Urobilinogen Ur Leukocyte Esterase Urine WBC (Auto) Urine RBC (Auto) Urine WBC Clumps (Auto) Ur Squamous Epith Cells Urine Bacteria Ur Random Sodium 38 03/04/18 03/04/18 03/04/18 18:21 18:32 21:51 WBC 10.7 RBC 3.22 L Hgb 9.7 L Hct 29.8 L MCV 92.5 MCH 30.1 MCHC 32.6 L RDW 15.7 H Plt Count 393 MPV 7.9 Neut % (Auto) 95.3 H Lymph % (Auto) 3.8 L [place] % (Auto) 0.8 Eos % (Auto) 0.0 Baso % (Auto) 0.1 Neut # (Auto) 10.1 H Lymph # (Auto) 0.4 L [place] # (Auto) 0.1 Eos # (Auto) 0.0 Baso # (Auto) 0.0 Puncture Site pCO2 pO2 HCO3 ABG pH ABG Total CO2 ABG O2 Saturation ABG Base Excess Zhen Test ABG Potassium A-a O2 Difference Respiratory Index Glucose Lactate Liter Flow FiO2 Sodium Potassium Chloride Carbon Dioxide Anion Gap BUN Creatinine Est GFR ( Amer) Est GFR (Non-Af Amer) POC Glucose (mg/dL) 149 H Random Glucose Calcium Phosphorus Magnesium Iron TIBC % Saturation Total Bilirubin AST ALT Alkaline Phosphatase Total Creatine Kinase CK-MB (Mass) Troponin I Total Protein Albumin Globulin Albumin/Globulin Ratio Arterial Blood Potassium Urine Color Yellow Urine Clarity Turbid Urine pH 5.0 Ur Specific [place] 1.015 Urine Protein 2+ H Urine Glucose (UA) Normal Urine Ketones Negative Urine Blood 3+ H Urine Nitrate Negative Urine Bilirubin Negative Urine Urobilinogen Normal Ur Leukocyte Esterase 3+ H Urine WBC (Auto) 1751 H Urine RBC (Auto) 672 H Urine WBC Clumps (Auto) Ur Squamous Epith Cells 4 Urine Bacteria Ur Random Sodium 03/04/18 03/04/18/02/14 21:51 21:51 21:51 WBC RBC Hgb Hct MCV MCH MCHC RDW Plt Count MPV Neut % (Auto) Lymph % (Auto) [place] % (Auto) Eos % (Auto) Baso % (Auto) Neut # (Auto) Lymph # (Auto) [place] # (Auto) Eos # (Auto) Baso # (Auto) Puncture Site pCO2 pO2 HCO3 ABG pH ABG Total CO2 ABG O2 Saturation ABG Base Excess Zhen Test ABG Potassium A-a O2 Difference Respiratory Index Glucose Lactate Liter Flow FiO2 Sodium 148 Potassium 3.4 L Chloride 109 H Carbon Dioxide 25 Anion Gap 17 BUN 107 H* D Creatinine 2.0 H Est GFR ( Amer) 29 Est GFR (Non-Af Amer) 24 POC Glucose (mg/dL) Random Glucose 117 H Calcium 8.4 L Phosphorus 4.2 Magnesium 2.2 Iron 56 TIBC 175 L % Saturation 32 Total Bilirubin 1.2 AST 37 H D ALT 33 Alkaline Phosphatase 77 Total Creatine Kinase CK-MB (Mass) Troponin I Total Protein 6.7 Albumin 4.0 Globulin 2.7 Albumin/Globulin Ratio 1.5 Arterial Blood Potassium Urine Color Yellow Urine Clarity Turbid Urine pH 5.0 Ur Specific [place] 1.014 Urine Protein 2+ H Urine Glucose (UA) Normal Urine Ketones Negative Urine Blood 3+ H Urine Nitrate Negative Urine Bilirubin Negative Urine Urobilinogen Normal Ur Leukocyte Esterase 3+ H Urine WBC (Auto) 1588 H Urine RBC (Auto) 348 H Urine WBC Clumps (Auto) Ur Squamous Epith Cells 3 Urine Bacteria Mod H Ur Random Sodium 03/04/18 21:59 WBC RBC Hgb Hct MCV MCH MCHC RDW Plt Count MPV Neut % (Auto) Lymph % (Auto) [place] % (Auto) Eos % (Auto) Baso % (Auto) Neut # (Auto) Lymph # (Auto) [place] # (Auto) Eos # (Auto) Baso # (Auto) Puncture Site Rr pCO2 39 pO2 104 H HCO3 25.0 ABG pH 7.41 ABG Total CO2 25.9 ABG O2 Saturation 99.7 H ABG Base Excess 0.1 Zhen Test Unable ABG Potassium 2.8 L A-a O2 Difference 47.0 Respiratory Index 0.5 Glucose 113 H Lactate 0.7 Liter Flow 2.0 FiO2 28.0 Sodium 148.0 Potassium Chloride 115.0 H Carbon Dioxide Anion Gap BUN Creatinine Est GFR ( Amer) Est GFR (Non-Af Amer) POC Glucose (mg/dL) Random Glucose Calcium Phosphorus Magnesium Iron TIBC % Saturation Total Bilirubin AST ALT Alkaline Phosphatase Total Creatine Kinase CK-MB (Mass) Troponin I Total Protein Albumin Globulin Albumin/Globulin Ratio Arterial Blood Potassium 2.8 L Urine Color Urine Clarity Urine pH Ur Specific [place] Urine Protein Urine Glucose (UA) Urine Ketones Urine Blood Urine Nitrate Urine Bilirubin Urine Urobilinogen Ur Leukocyte Esterase Urine WBC (Auto) Urine RBC (Auto) Urine WBC Clumps (Auto) Ur Squamous Epith Cells Urine Bacteria Ur Random Sodium
[2018-03-04] MEDS ORDERED: Potassium Chloride 20 MEQ in Sodium Chloride 0.45% 1,000 ML IV SCH (22:35)
[2018-03-04 22:37] LABS: ANISOCYTOSIS SLIGHT; BANDS 1 % (0-2); LYMPHOCYTE 4 % (20-40); MONOCYTE 1 % (0-10); NEUTROPHIL 94 % (50-75); PLATELET ESTIMATE NORMAL (NORMAL); POLYCHROMIC SLIGHT; TOTAL CELLS COUNTED 100
--- NOTE | 2018-03-04 22:53 | CP.PCM.PN ---
Subjective - Date & Time of Evaluation Date of Evaluation: 03/04/18 Time of Evaluation: 22:51 - Subjective Subjective: 18g iv angiocath inserted in left EJ, single attempt, with good flow and return , for purpose of blood draw and ivf. Objective - Vital Signs/Intake and Output Vital Signs (last 24 hours): Temp Pulse Resp BP Pulse Ox 98.3 F 77 24 102/64 100 03/04/18 20:00 03/04/18 22:12 03/04/18 22:12 03/04/18 22:12 03/04/18 22:12 Intake and Output: 03/04/18 03/05/18 18:59 06:59 Intake Total 2110 50 Output Total 320 30 Balance 1790 20 - Medications Medications: Current Medications Albumin Human (Albumin Human 25% (12.5 Gm/50 Ml)) 25 gm IV Q6 [facility] Stop: 03/05/18 06:01 Last Admin: 03/04/18 17:46 Dose: 25 gm Aspirin (Aspirin Chewable) 81 mg PO DAILY [facility] Last Admin: 03/04/18 10:21 Dose: Not Given Heparin Sodium (Porcine) (Heparin) 5,000 units SC Q12 [facility] Last Admin: 03/04/18 22:08 Dose: 5,000 units Hydrocortisone Sodium Succinate (Solu-Cortef) 50 mg IV Q8 [facility] Last Admin: 03/04/18 22:08 Dose: 50 mg Doxycycline Hyclate 100 mg/ (Sodium Chloride) 100 mls @ 100 mls/hr IVPB Q12H [facility] PRN Reason: Protocol Last Admin: 03/04/18 14:14 Dose: 100 mls/hr Potassium Chloride 20 meq/ (Sodium Chloride) 1,010 mls @ 75 mls/hr IV .[id number] [facility] Pantoprazole Sodium (Protonix Inj) 40 mg IVP DAILY [facility] Last Admin: 03/04/18 10:21 Dose: 40 mg - Labs Labs: 03/04/18 21:51 03/04/18 21:51 PT 12.1 SECONDS (9.7-12.2) 03/03/18 22:11 INR 1.1 03/03/18 22:11 APTT 27 SECONDS (21-34) 03/03/18 22:11
[2018-03-05] MEDS: Albumin Human 25% (12.5 gm/50 ml) IV SCH (05:35)
[2018-03-05 06:41] LABS: BASO % 0.2 % (0.0-2.0); HEMOGLOBIN 9.1 g/dL (11.0-16.0); LYMPH # 0.6 K/uL (1.0-4.3); LYMPH % 6.6 % (20.0-40.0); MEAN CELL VOLUME 93.1 fL (81.0-99.0); MEAN CORPUSCULAR HEMOGLOBIN 30.6 pg (27.0-31.0); MEAN CORPUSCULAR HGB CONC 32.8 g/dL (33.0-37.0); MEAN PLATELET VOLUME 8.4 fL (7.2-11.7); MONO # 0.2 K/uL (0.0-0.8); MONO % 1.9 % (0.0-10.0); NEUT # 8.9 K/uL (1.8-7.0); NEUT % 91.3 % (50.0-75.0); PLATELET COUNT 410 K/uL (130-400); RBC 2.99 Mil/uL (3.80-5.20); RED CELL DISTRIBUTION WIDTH 15.7 % (11.5-14.5); WHITE BLOOD COUNT 9.8 K/uL (4.8-10.8)
[2018-03-05 06:54] LABS: ALB/GLOB RATIO 1.5 (1.0-2.1); ALBUMIN 3.9 g/dL (3.5-5.0); CALCIUM 8.2 mg/dl (8.6-10.4)
[2018-03-05 07:57] LABS: FOLATE 5.7 ng/mL
--- NOTE | 2018-03-05 08:26 | CP.CCUPN ---
CCU Subjective - Physician Review Subjective (Free Text): 03/05/18 08:25 patient more awake, talking, renal function improving CCU Objective - Vital Signs / Intake & Output Vital Signs (Last 4 hours): Vital Signs Pulse Resp BP Pulse Ox 03/05/18 07:00 85 24 99 03/05/18 06:53 116/51 L 03/05/18 06:00 89 22 98 03/05/18 05:53 85 24 106/67 98 03/05/18 05:12 101 H 25 H 101/63 99 Intake and Output (Last 8hrs): Intake & Output 03/04/18 03/05/18 03/05/18 22:59 06:59 14:59 Intake Total 1500 800 75 Output Total 360 380 30 Balance 1140 420 45 Weight 155 lb 6.4 oz Intake: Intake, IV Amount 1500 800 75 Left Hand 1100 200 Right Hand 400 600 75 Oral 0 0 0 Output: Urine 360 380 30 Urethral (Lerma) 360 380 30 Other: # Bowel Movements 0 0 0 - Medications Active Medications: Active Medications Generic Name Dose Route Start Last Admin Trade Name Riveraq PRN Reason Stop Dose Admin Aspirin 81 mg 03/04/18 10:00 03/04/18 10:21 Aspirin Chewable PO Not Given DAILY DYLLAN Heparin Sodium (Porcine) 5,000 units 03/04/18 10:00 03/04/18 22:08 Heparin SC 5,000 units Q12 DYLLAN Administration Hydrocortisone Sodium Succinate 50 mg 03/04/18 07:45 03/05/18 05:35 Solu-Cortef IV 50 mg Q8 DYLLAN Administration Doxycycline Hyclate 100 mg/ 100 mls @ 100 mls/hr 03/04/18 14:00 03/05/18 01: 56 Sodium Chloride IVPB 100 mls/hr Q12H DYLLAN Administration Protocol Potassium Chloride 20 meq/ 1,010 mls @ 75 mls/hr 03/04/18 22:35 03/04/18 23: 16 Sodium Chloride IV 75 mls/hr .[id number] DYLLAN Administration Pantoprazole Sodium 40 mg 03/04/18 10:00 03/04/18 10:21 Protonix Inj IVP 40 mg DAILY DYLLAN Administration - Patient Studies Lab Studies: Microbiology Studies 03/04/18 01:59 Blood Culture - Preliminary Blood NO GROWTH AFTER 24 HOURS 03/04/18 01:57 Blood Culture - Preliminary Blood NO GROWTH AFTER 24 HOURS Lab Studies 03/05/18 03/05/18 03/05/18 Range/Units 06:31 06:31 06:17 WBC 9.8 (4.8-10.8) K/uL RBC 2.99 L (3.80-5.20) Mil/uL Hgb 9.1 L (11.0-16.0) g/dL Hct 27.9 L (34.0-47.0) % MCV 93.1 (81.0-99.0) fL MCH 30.6 (27.0-31.0) pg MCHC 32.8 L (33.0-37.0) g/dL RDW 15.7 H (11.5-14.5) % Plt Count 410 H (130-400) K/uL MPV 8.4 (7.2-11.7) fL Neut % (Auto) 91.3 H (50.0-75.0) % Lymph % (Auto) 6.6 L (20.0-40.0) % Tillman % (Auto) 1.9 (0.0-10.0) % Eos % (Auto) 0.0 (0.0-4.0) % Baso % (Auto) 0.2 (0.0-2.0) % Neut # (Auto) 8.9 H (1.8-7.0) K/uL Lymph # (Auto) 0.6 L (1.0-4.3) K/uL Tillman # (Auto) 0.2 (0.0-0.8) K/uL Eos # (Auto) 0.0 (0.0-0.7) K/uL Baso # (Auto) 0.0 (0.0-0.2) K/uL Neutrophils % (Manual) (50-75) % Band Neutrophils % (0-2) % Lymphocytes % (Manual) (20-40) % Monocytes % (Manual) (0-10) % Platelet Estimate (NORMAL) Polychromasia Anisocytosis (manual) Puncture Site pCO2 (35-45) mm/Hg pO2 (80-100) mm/Hg HCO3 (21-28) mmol/L ABG pH (7.35-7.45) ABG Total CO2 (22-28) mmol/L ABG O2 Saturation (95-98) % ABG Base Excess (-2.0-3.0) mmol/L Zhen Test ABG Potassium (3.6-5.2) mmol/L A-a O2 Difference mm/Hg Respiratory Index Sodium 151 H (132-148) mmol/l Chloride 110 H (98-107) mmol/L Glucose (65-105) mg/dl Lactate (0.7-2.1) mmol/L Liter Flow FiO2 % Potassium 3.2 L (3.6-5.2) mmol/L Carbon Dioxide 25 (22-30) mmol/L Anion Gap 19 (10-20) BUN 95 H (7-17) mg/dL Creatinine 1.8 H (0.7-1.2) mg/dL Est GFR ( Amer) 33 Est GFR (Non-Af Amer) 27 POC Glucose (mg/dL) 110 (65-110) mg/dL Random Glucose 110 H (65-105) mg/dL Calcium 8.2 L (8.6-10.4) mg/dl Phosphorus 3.4 (2.5-4.5) mg/dL Magnesium 2.1 (1.6-2.3) mg/dL Iron (37-170) ug/dL TIBC (250-450) ug/dL % Saturation (20-55) Total Bilirubin 1.0 (0.2-1.3) mg/dL AST 34 (14-36) U/L ALT 20 (9-52) U/L Alkaline Phosphatase 72 (38-126) U/L Total Protein 6.5 (6.3-8.3) g/dL Albumin 3.9 (3.5-5.0) g/dL Globulin 2.6 (2.2-3.9) gm/dL Albumin/Globulin Ratio 1.5 (1.0-2.1) Vitamin B12 612 (239-931) pg/mL Folate 5.7 ng/mL Arterial Blood Potassium (3.6-5.2) mmol/L Urine Color (YELLOW) Urine Clarity (Clear) Urine pH (5.0-8.0) Ur Specific Oracle (1.003-1.030) Urine Protein (NEGATIVE) mg/dL Urine Glucose (UA) (Normal) mg/dL Urine Ketones (NEGATIVE) mg/dL Urine Blood (NEGATIVE) Urine Nitrate (NEGATIVE) Urine Bilirubin (NEGATIVE) Urine Urobilinogen (0.2-1.0) mg/dL Ur Leukocyte Esterase (Negative) Hue/uL Urine WBC (Auto) (0-5) /hpf Urine RBC (Auto) (0-3) /hpf Ur Squamous Epith Cells (0-5) /hpf Urine Bacteria (<OCC) Ur Random Sodium mmol/L 03/04/18 03/04/18 03/04/18 Range/Units 23:28 21:59 21:51 WBC (4.8-10.8) K/uL RBC (3.80-5.20) Mil/uL Hgb (11.0-16.0) g/dL Hct (34.0-47.0) % MCV (81.0-99.0) fL MCH (27.0-31.0) pg MCHC (33.0-37.0) g/dL RDW (11.5-14.5) % Plt Count (130-400) K/uL MPV (7.2-11.7) fL Neut % (Auto) (50.0-75.0) % Lymph % (Auto) (20.0-40.0) % Tillman % (Auto) (0.0-10.0) % Eos % (Auto) (0.0-4.0) % Baso % (Auto) (0.0-2.0) % Neut # (Auto) (1.8-7.0) K/uL Lymph # (Auto) (1.0-4.3) K/uL Tillman # (Auto) (0.0-0.8) K/uL Eos # (Auto) (0.0-0.7) K/uL Baso # (Auto) (0.0-0.2) K/uL Neutrophils % (Manual) (50-75) % Band Neutrophils % (0-2) % Lymphocytes % (Manual) (20-40) % Monocytes % (Manual) (0-10) % Platelet Estimate (NORMAL) Polychromasia Anisocytosis (manual) Puncture Site Rr pCO2 39 (35-45) mm/Hg pO2 104 H (80-100) mm/Hg HCO3 25.0 (21-28) mmol/L ABG pH 7.41 (7.35-7.45) ABG Total CO2 25.9 (22-28) mmol/L ABG O2 Saturation 99.7 H (95-98) % ABG Base Excess 0.1 (-2.0-3.0) mmol/L Zhen Test Unable ABG Potassium 2.8 L (3.6-5.2) mmol/L A-a O2 Difference 47.0 mm/Hg Respiratory Index 0.5 Sodium 148.0 (132-148) mmol/l Chloride 115.0 H (98-107) mmol/L Glucose 113 H (65-105) mg/dl Lactate 0.7 (0.7-2.1) mmol/L Liter Flow 2.0 FiO2 28.0 % Potassium (3.6-5.2) mmol/L Carbon Dioxide (22-30) mmol/L Anion Gap (10-20) BUN (7-17) mg/dL Creatinine (0.7-1.2) mg/dL Est GFR ( Amer) Est GFR (Non-Af Amer) POC Glucose (mg/dL) 108 (65-110) mg/dL Random Glucose (65-105) mg/dL Calcium (8.6-10.4) mg/dl Phosphorus (2.5-4.5) mg/dL Magnesium (1.6-2.3) mg/dL Iron 56 (37-170) ug/dL TIBC 175 L (250-450) ug/dL % Saturation 32 (20-55) Total Bilirubin (0.2-1.3) mg/dL AST (14-36) U/L ALT (9-52) U/L Alkaline Phosphatase (38-126) U/L Total Protein (6.3-8.3) g/dL Albumin (3.5-5.0) g/dL Globulin (2.2-3.9) gm/dL Albumin/Globulin Ratio (1.0-2.1) Vitamin B12 (239-931) pg/mL Folate ng/mL Arterial Blood Potassium 2.8 L (3.6-5.2) mmol/L Urine Color (YELLOW) Urine Clarity (Clear) Urine pH (5.0-8.0) Ur Specific Oracle (1.003-1.030) Urine Protein (NEGATIVE) mg/dL Urine Glucose (UA) (Normal) mg/dL Urine Ketones (NEGATIVE) mg/dL Urine Blood (NEGATIVE) Urine Nitrate (NEGATIVE) Urine Bilirubin (NEGATIVE) Urine Urobilinogen (0.2-1.0) mg/dL Ur Leukocyte Esterase (Negative) Hue/uL Urine WBC (Auto) (0-5) /hpf Urine RBC (Auto) (0-3) /hpf Ur Squamous Epith Cells (0-5) /hpf Urine Bacteria (<OCC) Ur Random Sodium mmol/L 03/04/18 03/04/18 03/04/18 Range/Units 21:51 21:51 21:51 WBC 10.7 (4.8-10.8) K/uL RBC 3.22 L (3.80-5.20) Mil/uL Hgb 9.7 L (11.0-16.0) g/dL Hct 29.8 L (34.0-47.0) % MCV 92.5 (81.0-99.0) fL MCH 30.1 (27.0-31.0) pg MCHC 32.6 L (33.0-37.0) g/dL RDW 15.7 H (11.5-14.5) % Plt Count 393 (130-400) K/uL MPV 7.9 (7.2-11.7) fL Neut % (Auto) 95.3 H (50.0-75.0) % Lymph % (Auto) 3.8 L (20.0-40.0) % Tillman % (Auto) 0.8 (0.0-10.0) % Eos % (Auto) 0.0 (0.0-4.0) % Baso % (Auto) 0.1 (0.0-2.0) % Neut # (Auto) 10.1 H (1.8-7.0) K/uL Lymph # (Auto) 0.4 L (1.0-4.3) K/uL Tillman # (Auto) 0.1 (0.0-0.8) K/uL Eos # (Auto) 0.0 (0.0-0.7) K/uL Baso # (Auto) 0.0 (0.0-0.2) K/uL Neutrophils % (Manual) 94 H (50-75) % Band Neutrophils % 1 (0-2) % Lymphocytes % (Manual) 4 L (20-40) % Monocytes % (Manual) 1 (0-10) % Platelet Estimate Normal (NORMAL) Polychromasia Slight Anisocytosis (manual) Slight Puncture Site pCO2 (35-45) mm/Hg pO2 (80-100) mm/Hg HCO3 (21-28) mmol/L ABG pH (7.35-7.45) ABG Total CO2 (22-28) mmol/L ABG O2 Saturation (95-98) % ABG Base Excess (-2.0-3.0) mmol/L Zhen Test ABG Potassium (3.6-5.2) mmol/L A-a O2 Difference mm/Hg Respiratory Index Sodium 148 (132-148) mmol/l Chloride 109 H (98-107) mmol/L Glucose (65-105) mg/dl Lactate (0.7-2.1) mmol/L Liter Flow FiO2 % Potassium 3.4 L (3.6-5.2) mmol/L Carbon Dioxide 25 (22-30) mmol/L Anion Gap 17 (10-20) BUN 107 H* D (7-17) mg/dL Creatinine 2.0 H (0.7-1.2) mg/dL Est GFR ( Amer) 29 Est GFR (Non-Af Amer) 24 POC Glucose (mg/dL) (65-110) mg/dL Random Glucose 117 H (65-105) mg/dL Calcium 8.4 L (8.6-10.4) mg/dl Phosphorus 4.2 (2.5-4.5) mg/dL Magnesium 2.2 (1.6-2.3) mg/dL Iron (37-170) ug/dL TIBC (250-450) ug/dL % Saturation (20-55) Total Bilirubin 1.2 (0.2-1.3) mg/dL AST 37 H D (14-36) U/L ALT 33 (9-52) U/L Alkaline Phosphatase 77 (38-126) U/L Total Protein 6.7 (6.3-8.3) g/dL Albumin 4.0 (3.5-5.0) g/dL Globulin 2.7 (2.2-3.9) gm/dL Albumin/Globulin Ratio 1.5 (1.0-2.1) Vitamin B12 (239-931) pg/mL Folate ng/mL Arterial Blood Potassium (3.6-5.2) mmol/L Urine Color Yellow (YELLOW) Urine Clarity Turbid (Clear) Urine pH 5.0 (5.0-8.0) Ur Specific Oracle 1.014 (1.003-1.030) Urine Protein 2+ H (NEGATIVE) mg/dL Urine Glucose (UA) Normal (Normal) mg/dL Urine Ketones Negative (NEGATIVE) mg/dL Urine Blood 3+ H (NEGATIVE) Urine Nitrate Negative (NEGATIVE) Urine Bilirubin Negative (NEGATIVE) Urine Urobilinogen Normal (0.2-1.0) mg/dL Ur Leukocyte Esterase 3+ H (Negative) Hue/uL Urine WBC (Auto) 1588 H (0-5) /hpf Urine RBC (Auto) 348 H (0-3) /hpf Ur Squamous Epith Cells 3 (0-5) /hpf Urine Bacteria Mod H (<OCC) Ur Random Sodium mmol/L 03/04/18 03/04/18 03/04/18 Range/Units 18:32 18:21 17:34 WBC (4.8-10.8) K/uL RBC (3.80-5.20) Mil/uL Hgb (11.0-16.0) g/dL Hct (34.0-47.0) % MCV (81.0-99.0) fL MCH (27.0-31.0) pg MCHC (33.0-37.0) g/dL RDW (11.5-14.5) % Plt Count (130-400) K/uL MPV (7.2-11.7) fL Neut % (Auto) (50.0-75.0) % Lymph % (Auto) (20.0-40.0) % Tillman % (Auto) (0.0-10.0) % Eos % (Auto) (0.0-4.0) % Baso % (Auto) (0.0-2.0) % Neut # (Auto) (1.8-7.0) K/uL Lymph # (Auto) (1.0-4.3) K/uL Tillman # (Auto) (0.0-0.8) K/uL Eos # (Auto) (0.0-0.7) K/uL Baso # (Auto) (0.0-0.2) K/uL Neutrophils % (Manual) (50-75) % Band Neutrophils % (0-2) % Lymphocytes % (Manual) (20-40) % Monocytes % (Manual) (0-10) % Platelet Estimate (NORMAL) Polychromasia Anisocytosis (manual) Puncture Site pCO2 (35-45) mm/Hg pO2 (80-100) mm/Hg HCO3 (21-28) mmol/L ABG pH (7.35-7.45) ABG Total CO2 (22-28) mmol/L ABG O2 Saturation (95-98) % ABG Base Excess (-2.0-3.0) mmol/L Zhne Test ABG Potassium (3.6-5.2) mmol/L A-a O2 Difference mm/Hg Respiratory Index Sodium (132-148) mmol/l Chloride (98-107) mmol/L Glucose (65-105) mg/dl Lactate (0.7-2.1) mmol/L Liter Flow FiO2 % Potassium (3.6-5.2) mmol/L Carbon Dioxide (22-30) mmol/L Anion Gap (10-20) BUN (7-17) mg/dL Creatinine (0.7-1.2) mg/dL Est GFR ( Amer) Est GFR (Non-Af Amer) POC Glucose (mg/dL) 149 H (65-110) mg/dL Random Glucose (65-105) mg/dL Calcium (8.6-10.4) mg/dl Phosphorus (2.5-4.5) mg/dL Magnesium (1.6-2.3) mg/dL Iron (37-170) ug/dL TIBC (250-450) ug/dL % Saturation (20-55) Total Bilirubin (0.2-1.3) mg/dL AST (14-36) U/L ALT (9-52) U/L Alkaline Phosphatase (38-126) U/L Total Protein (6.3-8.3) g/dL Albumin (3.5-5.0) g/dL Globulin (2.2-3.9) gm/dL Albumin/Globulin Ratio (1.0-2.1) Vitamin B12 (239-931) pg/mL Folate ng/mL Arterial Blood Potassium (3.6-5.2) mmol/L Urine Color Yellow (YELLOW) Urine Clarity Turbid (Clear) Urine pH 5.0 (5.0-8.0) Ur Specific Oracle 1.015 (1.003-1.030) Urine Protein 2+ H (NEGATIVE) mg/dL Urine Glucose (UA) Normal (Normal) mg/dL Urine Ketones Negative (NEGATIVE) mg/dL Urine Blood 3+ H (NEGATIVE) Urine Nitrate Negative (NEGATIVE) Urine Bilirubin Negative (NEGATIVE) Urine Urobilinogen Normal (0.2-1.0) mg/dL Ur Leukocyte Esterase 3+ H (Negative) Hue/uL Urine WBC (Auto) 1751 H (0-5) /hpf Urine RBC (Auto) 672 H (0-3) /hpf Ur Squamous Epith Cells 4 (0-5) /hpf Urine Bacteria (<OCC) Ur Random Sodium 38 mmol/L 03/04/18 03/04/18 Range/Units 11:08 09:40 WBC (4.8-10.8) K/uL RBC (3.80-5.20) Mil/uL Hgb (11.0-16.0) g/dL Hct (34.0-47.0) % MCV (81.0-99.0) fL MCH (27.0-31.0) pg MCHC (33.0-37.0) g/dL RDW (11.5-14.5) % Plt Count (130-400) K/uL MPV (7.2-11.7) fL Neut % (Auto) (50.0-75.0) % Lymph % (Auto) (20.0-40.0) % Tillman % (Auto) (0.0-10.0) % Eos % (Auto) (0.0-4.0) % Baso % (Auto) (0.0-2.0) % Neut # (Auto) (1.8-7.0) K/uL Lymph # (Auto) (1.0-4.3) K/uL Tillman # (Auto) (0.0-0.8) K/uL Eos # (Auto) (0.0-0.7) K/uL Baso # (Auto) (0.0-0.2) K/uL Neutrophils % (Manual) (50-75) % Band Neutrophils % (0-2) % Lymphocytes % (Manual) (20-40) % Monocytes % (Manual) (0-10) % Platelet Estimate (NORMAL) Polychromasia Anisocytosis (manual) Puncture Site Rr pCO2 41 (35-45) mm/Hg pO2 117 H (80-100) mm/Hg HCO3 27.0 (21-28) mmol/L ABG pH 7.43 (7.35-7.45) ABG Total CO2 28.5 H (22-28) mmol/L ABG O2 Saturation 99.6 H (95-98) % ABG Base Excess 2.6 (-2.0-3.0) mmol/L Zhen Test Pos ABG Potassium 2.9 L (3.6-5.2) mmol/L A-a O2 Difference 46.0 mm/Hg Respiratory Index 0.4 Sodium 148.0 (132-148) mmol/l Chloride 113.0 H (98-107) mmol/L Glucose 115 H (65-105) mg/dl Lactate 0.9 (0.7-2.1) mmol/L Liter Flow 3.0 FiO2 30.0 % Potassium (3.6-5.2) mmol/L Carbon Dioxide (22-30) mmol/L Anion Gap (10-20) BUN (7-17) mg/dL Creatinine (0.7-1.2) mg/dL Est GFR ( Amer) Est GFR (Non-Af Amer) POC Glucose (mg/dL) 121 H (65-110) mg/dL Random Glucose (65-105) mg/dL Calcium (8.6-10.4) mg/dl Phosphorus (2.5-4.5) mg/dL Magnesium (1.6-2.3) mg/dL Iron (37-170) ug/dL TIBC (250-450) ug/dL % Saturation (20-55) Total Bilirubin (0.2-1.3) mg/dL AST (14-36) U/L ALT (9-52) U/L Alkaline Phosphatase (38-126) U/L Total Protein (6.3-8.3) g/dL Albumin (3.5-5.0) g/dL Globulin (2.2-3.9) gm/dL Albumin/Globulin Ratio (1.0-2.1) Vitamin B12 (239-931) pg/mL Folate ng/mL Arterial Blood Potassium 2.9 L (3.6-5.2) mmol/L Urine Color (YELLOW) Urine Clarity (Clear) Urine pH (5.0-8.0) Ur Specific Oracle (1.003-1.030) Urine Protein (NEGATIVE) mg/dL Urine Glucose (UA) (Normal) mg/dL Urine Ketones (NEGATIVE) mg/dL Urine Blood (NEGATIVE) Urine Nitrate (NEGATIVE) Urine Bilirubin (NEGATIVE) Urine Urobilinogen (0.2-1.0) mg/dL Ur Leukocyte Esterase (Negative) Hue/uL Urine WBC (Auto) (0-5) /hpf Urine RBC (Auto) (0-3) /hpf Ur Squamous Epith Cells (0-5) /hpf Urine Bacteria (<OCC) Ur Random Sodium mmol/L Laboratory Results - last 24 hr 03/04/18 03/04/18 03/04/18 09:40 11:08 17:34 WBC RBC Hgb Hct MCV MCH MCHC RDW Plt Count MPV Neut % (Auto) Lymph % (Auto) Tillman % (Auto) Eos % (Auto) Baso % (Auto) Neut # (Auto) Lymph # (Auto) Tillman # (Auto) Eos # (Auto) Baso # (Auto) Neutrophils % (Manual) Band Neutrophils % Lymphocytes % (Manual) Monocytes % (Manual) Platelet Estimate Polychromasia Anisocytosis (manual) Puncture Site Rr pCO2 41 pO2 117 H HCO3 27.0 ABG pH 7.43 ABG Total CO2 28.5 H ABG O2 Saturation 99.6 H ABG Base Excess 2.6 Zhen Test Pos ABG Potassium 2.9 L A-a O2 Difference 46.0 Respiratory Index 0.4 Sodium 148.0 Chloride 113.0 H Glucose 115 H Lactate 0.9 Liter Flow 3.0 FiO2 30.0 Potassium Carbon Dioxide Anion Gap BUN Creatinine Est GFR ( Amer) Est GFR (Non-Af Amer) POC Glucose (mg/dL) 121 H Random Glucose Calcium Phosphorus Magnesium Iron TIBC % Saturation Total Bilirubin AST ALT Alkaline Phosphatase Total Protein Albumin Globulin Albumin/Globulin Ratio Vitamin B12 Folate Arterial Blood Potassium 2.9 L Urine Color Urine Clarity Urine pH Ur Specific Oracle Urine Protein Urine Glucose (UA) Urine Ketones Urine Blood Urine Nitrate Urine Bilirubin Urine Urobilinogen Ur Leukocyte Esterase Urine WBC (Auto) Urine RBC (Auto) Ur Squamous Epith Cells Urine Bacteria Ur Random Sodium 38 03/04/18 03/04/18 03/04/18 18:21 18:32 21:51 WBC 10.7 RBC 3.22 L Hgb 9.7 L Hct 29.8 L MCV 92.5 MCH 30.1 MCHC 32.6 L RDW 15.7 H Plt Count 393 MPV 7.9 Neut % (Auto) 95.3 H Lymph % (Auto) 3.8 L Tillman % (Auto) 0.8 Eos % (Auto) 0.0 Baso % (Auto) 0.1 Neut # (Auto) 10.1 H Lymph # (Auto) 0.4 L Tillman # (Auto) 0.1 Eos # (Auto) 0.0 Baso # (Auto) 0.0 Neutrophils % (Manual) 94 H Band Neutrophils % 1 Lymphocytes % (Manual) 4 L Monocytes % (Manual) 1 Platelet Estimate Normal Polychromasia Slight Anisocytosis (manual) Slight Puncture Site pCO2 pO2 HCO3 ABG pH ABG Total CO2 ABG O2 Saturation ABG Base Excess Zhen Test ABG Potassium A-a O2 Difference Respiratory Index Sodium Chloride Glucose Lactate Liter Flow FiO2 Potassium Carbon Dioxide Anion Gap BUN Creatinine Est GFR ( Amer) Est GFR (Non-Af Amer) POC Glucose (mg/dL) 149 H Random Glucose Calcium Phosphorus Magnesium Iron TIBC % Saturation Total Bilirubin AST ALT Alkaline Phosphatase Total Protein Albumin Globulin Albumin/Globulin Ratio Vitamin B12 Folate Arterial Blood Potassium Urine Color Yellow Urine Clarity Turbid Urine pH 5.0 Ur Specific Oracle 1.015 Urine Protein 2+ H Urine Glucose (UA) Normal Urine Ketones Negative Urine Blood 3+ H Urine Nitrate Negative Urine Bilirubin Negative Urine Urobilinogen Normal Ur Leukocyte Esterase 3+ H Urine WBC (Auto) 1751 H Urine RBC (Auto) 672 H Ur Squamous Epith Cells 4 Urine Bacteria Ur Random Sodium 03/04/18 03/04/18 03/04/18 21:51 21:51 21:51 WBC RBC Hgb Hct MCV MCH MCHC RDW Plt Count MPV Neut % (Auto) Lymph % (Auto) Tillman % (Auto) Eos % (Auto) Baso % (Auto) Neut # (Auto) Lymph # (Auto) Tillman # (Auto) Eos # (Auto) Baso # (Auto) Neutrophils % (Manual) Band Neutrophils % Lymphocytes % (Manual) Monocytes % (Manual) Platelet Estimate Polychromasia Anisocytosis (manual) Puncture Site pCO2 pO2 HCO3 ABG pH ABG Total CO2 ABG O2 Saturation ABG Base Excess Zhen Test ABG Potassium A-a O2 Difference Respiratory Index Sodium 148 Chloride 109 H Glucose Lactate Liter Flow FiO2 Potassium 3.4 L Carbon Dioxide 25 Anion Gap 17 BUN 107 H* D Creatinine 2.0 H Est GFR ( Amer) 29 Est GFR (Non-Af Amer) 24 POC Glucose (mg/dL) Random Glucose 117 H Calcium 8.4 L Phosphorus 4.2 Magnesium 2.2 Iron 56 TIBC 175 L % Saturation 32 Total Bilirubin 1.2 AST 37 H D ALT 33 Alkaline Phosphatase 77 Total Protein 6.7 Albumin 4.0 Globulin 2.7 Albumin/Globulin Ratio 1.5 Vitamin B12 Folate Arterial Blood Potassium Urine Color Yellow Urine Clarity Turbid Urine pH 5.0 Ur Specific Oracle 1.014 Urine Protein 2+ H Urine Glucose (UA) Normal Urine Ketones Negative Urine Blood 3+ H Urine Nitrate Negative Urine Bilirubin Negative Urine Urobilinogen Normal Ur Leukocyte Esterase 3+ H Urine WBC (Auto) 1588 H Urine RBC (Auto) 348 H Ur Squamous Epith Cells 3 Urine Bacteria Mod H Ur Random Sodium 03/04/18 03/04/18 03/05/18 21:59 23:28 06:17 WBC RBC Hgb Hct MCV MCH MCHC RDW Plt Count MPV Neut % (Auto) Lymph % (Auto) Tillman % (Auto) Eos % (Auto) Baso % (Auto) Neut # (Auto) Lymph # (Auto) Tillman # (Auto) Eos # (Auto) Baso # (Auto) Neutrophils % (Manual) Band Neutrophils % Lymphocytes % (Manual) Monocytes % (Manual) Platelet Estimate Polychromasia Anisocytosis (manual) Puncture Site Rr pCO2 39 pO2 104 H HCO3 25.0 ABG pH 7.41 ABG Total CO2 25.9 ABG O2 Saturation 99.7 H ABG Base Excess 0.1 Zhen Test Unable ABG Potassium 2.8 L A-a O2 Difference 47.0 Respiratory Index 0.5 Sodium 148.0 Chloride 115.0 H Glucose 113 H Lactate 0.7 Liter Flow 2.0 FiO2 28.0 Potassium Carbon Dioxide Anion Gap BUN Creatinine Est GFR ( Amer) Est GFR (Non-Af Amer) POC Glucose (mg/dL) 108 110 Random Glucose Calcium Phosphorus Magnesium Iron TIBC % Saturation Total Bilirubin AST ALT Alkaline Phosphatase Total Protein Albumin Globulin Albumin/Globulin Ratio Vitamin B12 Folate Arterial Blood Potassium 2.8 L Urine Color Urine Clarity Urine pH Ur Specific Oracle Urine Protein Urine Glucose (UA) Urine Ketones Urine Blood Urine Nitrate Urine Bilirubin Urine Urobilinogen Ur Leukocyte Esterase Urine WBC (Auto) Urine RBC (Auto) Ur Squamous Epith Cells Urine Bacteria Ur Random Sodium 03/05/18 03/05/18 06:31 06:31 WBC 9.8 RBC 2.99 L Hgb 9.1 L Hct 27.9 L MCV 93.1 MCH 30.6 MCHC 32.8 L RDW 15.7 H Plt Count 410 H MPV 8.4 Neut % (Auto) 91.3 H Lymph % (Auto) 6.6 L Tillman % (Auto) 1.9 Eos % (Auto) 0.0 Baso % (Auto) 0.2 Neut # (Auto) 8.9 H Lymph # (Auto) 0.6 L Tillman # (Auto) 0.2 Eos # (Auto) 0.0 Baso # (Auto) 0.0 Neutrophils % (Manual) Band Neutrophils % Lymphocytes % (Manual) Monocytes % (Manual) Platelet Estimate Polychromasia Anisocytosis (manual) Puncture Site pCO2 pO2 HCO3 ABG pH ABG Total CO2 ABG O2 Saturation ABG Base Excess Zhen Test ABG Potassium A-a O2 Difference Respiratory Index Sodium 151 H Chloride 110 H Glucose Lactate Liter Flow FiO2 Potassium 3.2 L Carbon Dioxide 25 Anion Gap 19 BUN 95 H Creatinine 1.8 H Est GFR ( Amer) 33 Est GFR (Non-Af Amer) 27 POC Glucose (mg/dL) Random Glucose 110 H Calcium 8.2 L Phosphorus 3.4 Magnesium 2.1 Iron TIBC % Saturation Total Bilirubin 1.0 AST 34 ALT 20 Alkaline Phosphatase 72 Total Protein 6.5 Albumin 3.9 Globulin 2.6 Albumin/Globulin Ratio 1.5 Vitamin B12 612 Folate 5.7 Arterial Blood Potassium Urine Color Urine Clarity Urine pH Ur Specific Oracle Urine Protein Urine Glucose (UA) Urine Ketones Urine Blood Urine Nitrate Urine Bilirubin Urine Urobilinogen Ur Leukocyte Esterase Urine WBC (Auto) Urine RBC (Auto) Ur Squamous Epith Cells Urine Bacteria Ur Random Sodium Fingerstick Blood Sugar Results: 110 Critical Care Progress Note - Nutrition Nutrition: Nutrition Category Date Time Status NPO Diet [DIET] Diets 03/03/18 Breakfast Active Assessment/Plan - Assessment and Plan (Free Text) Assessment: Patient seen and examined at bedside. PAtient more awake, alert. -HERRERA: improving with IV fluids, d/c lerma after 24 hour urine collection -sepsis: source likely urine as polys in urine, not in shock, lactic normal, map >65 off pressors -Anemia: monitor serial cbc, pending labs -will obtain speach and swallow, and start oral diet -Hypernetremia: change from NS to 0.45 or D5 as per renal -ISS lispro -check TSH, -continue dvt/pud ppx -wound care as per ICU protocol -Patient will not need HD at current rate of renal improvement - Date & Time Date: 03/05/18 Time: 10:28
--- NOTE | 2018-03-05 09:18 | CP.PCM.PN ---
Subjective - Date & Time of Evaluation Date of Evaluation: 03/05/18 Time of Evaluation: 09:16 - Subjective Subjective: More alert; tries to verbalize Contracted as before UO better; pre-renal azotemia improving with fluids K low- to be repleted Na about same- on 1/2NS fluids cultures negative to date- on IV ABs Objective - Vital Signs/Intake and Output Vital Signs (last 24 hours): Temp Pulse Resp BP Pulse Ox 98 F 85 24 116/51 L 99 03/05/18 04:00 03/05/18 07:00 03/05/18 07:00 03/05/18 06:53 03/05/18 07:00 Intake and Output: 03/05/18 03/05/18 06:59 18:59 Intake Total 1000 75 Output Total 610 30 Balance 390 45 - Medications Medications: Current Medications Aspirin (Aspirin Chewable) 81 mg PO DAILY [facility] Last Admin: 03/04/18 10:21 Dose: Not Given Heparin Sodium (Porcine) (Heparin) 5,000 units SC Q12 [facility] Last Admin: 03/04/18 22:08 Dose: 5,000 units Hydrocortisone Sodium Succinate (Solu-Cortef) 50 mg IV Q8 [facility] Last Admin: 03/05/18 05:35 Dose: 50 mg Doxycycline Hyclate 100 mg/ (Sodium Chloride) 100 mls @ 100 mls/hr IVPB Q12H [facility] PRN Reason: Protocol Last Admin: 03/05/18 01:56 Dose: 100 mls/hr Potassium Chloride 20 meq/ (Sodium Chloride) 1,010 mls @ 75 mls/hr IV .[id number] [facility] Last Admin: 03/04/18 23:16 Dose: 75 mls/hr Pantoprazole Sodium (Protonix Inj) 40 mg IVP DAILY [facility] Last Admin: 03/04/18 10:21 Dose: 40 mg - Labs Labs: 03/05/18 06:31 03/05/18 06:31 PT 12.1 SECONDS (9.7-12.2) 03/03/18 22:11 INR 1.1 03/03/18 22:11 APTT 27 SECONDS (21-34) 03/03/18 22:11 - Constitutional Appears: No Acute Distress, Confused, Chronically Ill - Head Exam Head Exam: ATRAUMATIC, NORMAL INSPECTION - Eye Exam Eye Exam: EOMI, Normal appearance - Neck Exam Neck Exam: Normal Inspection. absent: Tenderness - Respiratory Exam Respiratory Exam: Clear to Ausculation Bilateral, NORMAL BREATHING PATTERN - Cardiovascular Exam Cardiovascular Exam: REGULAR RHYTHM, +S1 - GI/Abdominal Exam GI & Abdominal Exam: Soft. absent: Tenderness - Extremities Exam Extremities Exam: Normal Inspection. absent: Tenderness - Neurological Exam Neurological Exam: Altered, Awake - Skin Skin Exam: Dry, Warm Assessment and Plan (1) HERRERA (acute kidney injury) Status: Acute (2) Hypernatremia Status: Acute (3) Severe dehydration Status: Acute - Assessment and Plan (Free Text) Plan: Contine same IV fluids IV ABs for now Replete K If Na remains elevated and BP stable can switch to D5W fluids
[2018-03-05] MEDS ORDERED: Potassium Ch 20mEq in D5W 1,000 ML IV SCH (10:00)
[2018-03-05 10:30] LABS: ANISOCYTOSIS SLIGHT; BANDS 1 % (0-2); HYPOCHROMIC SLIGHT; LYMPHOCYTE 6 % (20-40); MONOCYTE 2 % (0-10); NEUTROPHIL 91 % (50-75); PLATELET ESTIMATE NORMAL (NORMAL); TOTAL CELLS COUNTED 100
[2018-03-05 10:31] LABS: LARGE PLATELETS PRESENT; POIKILOCYTOSIS SLIGHT
[2018-03-05 10:32] LABS: OVALOCYTES SLIGHT
--- NOTE | 2018-03-05 10:40 | CP.PCM.CON ---
History of Present Illness - History of Present Illness History of Present Illness: 77 yo female h/o OMS, HTN- admitted with dehydration. LAst few months - poor po intake. Was being evaluated For PEG as outpt. Review of Systems - Constitutional Constitutional: Anorexia, Fatigue, Weight Loss - Cardiovascular Cardiovascular: absent: Chest Pain, Dyspnea - Respiratory Respiratory: absent: Cough, Hemoptysis, Wheezing - Gastrointestinal Gastrointestinal: Dysphagia. absent: Abdominal Pain, Diarrhea, Hematemesis, Hematochezia, Loose Stools, Melena, Nausea, Vomiting - Genitourinary Genitourinary: absent: Hematuria - Integumentary Integumentary: absent: Jaundice - Neurological Neurological: absent: Convulsions - Psychiatric Psychiatric: absent: Hallucinations Past Patient History - Past Medical History & Family History Past Medical History?: Yes - Past Social History Smoking Status: Unknown - CARDIAC Hx Cardiac Disorders: Yes Hx Hypertension: Yes - PULMONARY Hx Respiratory Disorders: No - NEUROLOGICAL Other/Comment: Unknown-Pt is aphasic - HEENT Other/Comment: Unknown - RENAL Hx Chronic Kidney Disease: Yes - MUSCULOSKELETAL/RHEUMATOLOGICAL Hx Falls: Yes - GENITOURINARY/GYNECOLOGICAL Other/Comment: per shelter lerma insertion in January 2018 - PSYCHIATRIC Hx Substance Use: No - SURGICAL HISTORY Hx Surgeries: Yes Hx Breast Biopsy: Yes Hx Section: Yes - ANESTHESIA Hx Anesthesia: Yes Meds Allergies/Adverse Reactions: Allergies Allergy/AdvReac Type Severity Reaction Status Date / Time Penicillins Allergy Intermediate Verified 03/03/18 21:55 - Medications Medications: Current Medications Aspirin (Aspirin Chewable) 81 mg PO DAILY [facility] Last Admin: 03/05/18 09:42 Dose: Not Given Heparin Sodium (Porcine) (Heparin) 5,000 units SC Q12 [facility] Last Admin: 03/05/18 09:44 Dose: 5,000 units Hydrocortisone Sodium Succinate (Solu-Cortef) 50 mg IV Q12 [facility] Stop: 03/07/18 22:01 Doxycycline Hyclate 100 mg/ (Sodium Chloride) 100 mls @ 100 mls/hr IVPB Q12H [facility] PRN Reason: Protocol Last Admin: 03/05/18 01:56 Dose: 100 mls/hr Potassium Chloride/Dextrose (Potassium Chl 20 Meq In D5w) 1,000 mls @ 50 mls/ hr IV .Q20H [facility] Pantoprazole Sodium (Protonix Inj) 40 mg IVP DAILY [facility] Last Admin: 03/05/18 09:44 Dose: 40 mg Physical Exam - Constitutional Appears: Chronically Ill - Neck Exam Neck exam: Negative for: Tenderness - Cardiovascular Exam Cardiovascular Exam: RRR - GI/Abdominal Exam GI & Abdominal Exam: Normal Bowel Sounds, Soft. absent: Guarding, Mass, Rebound - Extremities Exam Extremities exam: Negative for: calf tenderness - Neurological Exam Neurological exam: Alert Additional comments: confused Results - Vital Signs Recent Vital Signs: Last Vital Signs Temp 98 F 03/05/18 04:00 Pulse 92 H 03/05/18 09:00 Resp 19 03/05/18 09:00 BP 116/51 L 03/05/18 06:53 Pulse Ox 100 03/05/18 09:00 - Labs Result Diagrams: 03/05/18 06:31 03/05/18 06:31 Labs: Laboratory Results - last 24 hr 03/04/18 03/04/18 03/04/18 11:08 17:34 18:21 WBC RBC Hgb Hct MCV MCH MCHC RDW Plt Count MPV Neut % (Auto) Lymph % (Auto) [place] % (Auto) Eos % (Auto) Baso % (Auto) Neut # (Auto) Lymph # (Auto) [place] # (Auto) Eos # (Auto) Baso # (Auto) Neutrophils % (Manual) Band Neutrophils % Lymphocytes % (Manual) Monocytes % (Manual) Platelet Estimate Large Platelets Polychromasia Hypochromasia (manual) Poikilocytosis (manual Anisocytosis (manual) Ovalocytes Puncture Site pCO2 pO2 HCO3 ABG pH ABG Total CO2 ABG O2 Saturation ABG Base Excess Zhen Test ABG Potassium A-a O2 Difference Respiratory Index Glucose Lactate Liter Flow FiO2 Sodium Potassium Chloride Carbon Dioxide Anion Gap BUN Creatinine Est GFR ( Amer) Est GFR (Non-Af Amer) POC Glucose (mg/dL) 121 H 149 H Random Glucose Serum Osmolality Calcium Phosphorus Magnesium Iron TIBC % Saturation Total Bilirubin AST ALT Alkaline Phosphatase Total Protein Albumin Globulin Albumin/Globulin Ratio Vitamin B12 Folate Arterial Blood Potassium Urine Color Urine Clarity Urine pH Ur Specific [place] Urine Protein Urine Glucose (UA) Urine Ketones Urine Blood Urine Nitrate Urine Bilirubin Urine Urobilinogen Ur Leukocyte Esterase Urine WBC (Auto) Urine RBC (Auto) Ur Squamous Epith Cells Urine Bacteria Urine Osmolality Ur Random Sodium 38 07/06/18 07/06/18 07/06/18 18:32 21:51 21:51 WBC 10.7 RBC 3.22 L Hgb 9.7 L Hct 29.8 L MCV 92.5 MCH 30.1 MCHC 32.6 L RDW 15.7 H Plt Count 393 MPV 7.9 Neut % (Auto) 95.3 H Lymph % (Auto) 3.[address] [place] % (Auto) 0.8 Eos % (Auto) 0.0 Baso % (Auto) 0.1 Neut # (Auto) 10.1 H Lymph # (Auto) 0.[address] [place] # (Auto) 0.1 Eos # (Auto) 0.0 Baso # (Auto) 0.0 Neutrophils % (Manual) 94 H Band Neutrophils % 1 Lymphocytes % (Manual) 4 L Monocytes % (Manual) 1 Platelet Estimate Normal Large Platelets Polychromasia Slight Hypochromasia (manual) Poikilocytosis (manual Anisocytosis (manual) Slight Ovalocytes Puncture Site pCO2 pO2 HCO3 ABG pH ABG Total CO2 ABG O2 Saturation ABG Base Excess Zhen Test ABG Potassium A-a O2 Difference Respiratory Index Glucose Lactate Liter Flow FiO2 Sodium 148 Potassium 3.4 L Chloride 109 H Carbon Dioxide 25 Anion Gap 17 BUN 107 H* D Creatinine 2.0 H Est GFR ( Amer) 29 Est GFR (Non-Af Amer) 24 POC Glucose (mg/dL) Random Glucose 117 H Serum Osmolality Calcium 8.4 L Phosphorus 4.2 Magnesium 2.2 Iron TIBC % Saturation Total Bilirubin 1.2 AST 37 H D ALT 33 Alkaline Phosphatase 77 Total Protein 6.7 Albumin 4.0 Globulin 2.7 Albumin/Globulin Ratio 1.5 Vitamin B12 Folate Arterial Blood Potassium Urine Color Yellow Urine Clarity Turbid Urine pH 5.0 Ur Specific [place] 1.015 Urine Protein 2+ H Urine Glucose (UA) Normal Urine Ketones Negative Urine Blood 3+ H Urine Nitrate Negative Urine Bilirubin Negative Urine Urobilinogen Normal Ur Leukocyte Esterase 3+ H Urine WBC (Auto) 1751 H Urine RBC (Auto) 672 H Ur Squamous Epith Cells 4 Urine Bacteria Urine Osmolality Ur Random Sodium 03/04/1818 03/04/18 21:51 21:51 21:59 WBC RBC Hgb Hct MCV MCH MCHC RDW Plt Count MPV Neut % (Auto) Lymph % (Auto) [place] % (Auto) Eos % (Auto) Baso % (Auto) Neut # (Auto) Lymph # (Auto) [place] # (Auto) Eos # (Auto) Baso # (Auto) Neutrophils % (Manual) Band Neutrophils % Lymphocytes % (Manual) Monocytes % (Manual) Platelet Estimate Large Platelets Polychromasia Hypochromasia (manual) Poikilocytosis (manual Anisocytosis (manual) Ovalocytes Puncture Site Rr pCO2 39 pO2 104 H HCO3 25.0 ABG pH 7.41 ABG Total CO2 25.9 ABG O2 Saturation 99.7 H ABG Base Excess 0.1 Zhen Test Unable ABG Potassium 2.8 L A-a O2 Difference 47.0 Respiratory Index 0.5 Glucose 113 H Lactate 0.7 Liter Flow 2.0 FiO2 28.0 Sodium 148.0 Potassium Chloride 115.0 H Carbon Dioxide Anion Gap BUN Creatinine Est GFR ( Amer) Est GFR (Non-Af Amer) POC Glucose (mg/dL) Random Glucose Serum Osmolality Calcium Phosphorus Magnesium Iron 56 TIBC 175 L % Saturation 32 Total Bilirubin AST ALT Alkaline Phosphatase Total Protein Albumin Globulin Albumin/Globulin Ratio Vitamin B12 Folate Arterial Blood Potassium 2.8 L Urine Color Yellow Urine Clarity Turbid Urine pH 5.0 Ur Specific [place] 1.014 Urine Protein 2+ H Urine Glucose (UA) Normal Urine Ketones Negative Urine Blood 3+ H Urine Nitrate Negative Urine Bilirubin Negative Urine Urobilinogen Normal Ur Leukocyte Esterase 3+ H Urine WBC (Auto) 1588 H Urine RBC (Auto) 348 H Ur Squamous Epith Cells 3 Urine Bacteria Mod H Urine Osmolality Ur Random Sodium 03/04/18 03/05/18 03/05/18 23:28 06:17 06:31 WBC 9.8 RBC 2.99 L Hgb 9.1 L Hct 27.9 L MCV 93.1 MCH 30.6 MCHC 32.8 L RDW 15.7 H Plt Count 410 H MPV 8.4 Neut % (Auto) 91.3 H Lymph % (Auto) 6.[address] [place] % (Auto) 1.9 Eos % (Auto) 0.0 Baso % (Auto) 0.2 Neut # (Auto) 8.9 H Lymph # (Auto) 0.[address] [place] # (Auto) 0.2 Eos # (Auto) 0.0 Baso # (Auto) 0.0 Neutrophils % (Manual) 91 H Band Neutrophils % 1 Lymphocytes % (Manual) 6 L Monocytes % (Manual) 2 Platelet Estimate Normal Large Platelets Present Polychromasia Hypochromasia (manual) Slight Poikilocytosis (manual Slight Anisocytosis (manual) Slight Ovalocytes Slight Puncture Site pCO2 pO2 HCO3 ABG pH ABG Total CO2 ABG O2 Saturation ABG Base Excess Zhen Test ABG Potassium A-a O2 Difference Respiratory Index Glucose Lactate Liter Flow FiO2 Sodium Potassium Chloride Carbon Dioxide Anion Gap BUN Creatinine Est GFR ( Amer) Est GFR (Non-Af Amer) POC Glucose (mg/dL) 108 110 Random Glucose Serum Osmolality Calcium Phosphorus Magnesium Iron TIBC % Saturation Total Bilirubin AST ALT Alkaline Phosphatase Total Protein Albumin Globulin Albumin/Globulin Ratio Vitamin B12 Folate Arterial Blood Potassium Urine Color Urine Clarity Urine pH Ur Specific [place] Urine Protein Urine Glucose (UA) Urine Ketones Urine Blood Urine Nitrate Urine Bilirubin Urine Urobilinogen Ur Leukocyte Esterase Urine WBC (Auto) Urine RBC (Auto) Ur Squamous Epith Cells Urine Bacteria Urine Osmolality Ur Random Sodium 03/05/18 03/05/18 03/05/18 06:31 08:07 08:07 WBC RBC Hgb Hct MCV MCH MCHC RDW Plt Count MPV Neut % (Auto) Lymph % (Auto) [place] % (Auto) Eos % (Auto) Baso % (Auto) Neut # (Auto) Lymph # (Auto) [place] # (Auto) Eos # (Auto) Baso # (Auto) Neutrophils % (Manual) Band Neutrophils % Lymphocytes % (Manual) Monocytes % (Manual) Platelet Estimate Large Platelets Polychromasia Hypochromasia (manual) Poikilocytosis (manual Anisocytosis (manual) Ovalocytes Puncture Site pCO2 pO2 HCO3 ABG pH ABG Total CO2 ABG O2 Saturation ABG Base Excess Zhen Test ABG Potassium A-a O2 Difference Respiratory Index Glucose Lactate Liter Flow FiO2 Sodium 151 H Potassium 3.2 L Chloride 110 H Carbon Dioxide 25 Anion Gap 19 BUN 95 H Creatinine 1.8 H Est GFR ( Amer) 33 Est GFR (Non-Af Amer) 27 POC Glucose (mg/dL) Random Glucose 110 H Serum Osmolality 344 H Calcium 8.2 L Phosphorus 3.4 Magnesium 2.1 Iron TIBC % Saturation Total Bilirubin 1.0 AST 34 ALT 20 Alkaline Phosphatase 72 Total Protein 6.5 Albumin 3.9 Globulin 2.6 Albumin/Globulin Ratio 1.5 Vitamin B12 612 Folate 5.7 Arterial Blood Potassium Urine Color Urine Clarity Urine pH Ur Specific [place] Urine Protein Urine Glucose (UA) Urine Ketones Urine Blood Urine Nitrate Urine Bilirubin Urine Urobilinogen Ur Leukocyte Esterase Urine WBC (Auto) Urine RBC (Auto) Ur Squamous Epith Cells Urine Bacteria Urine Osmolality 530 Ur Random Sodium Assessment & Plan (1) Anemia Assessment and Plan: likely chr disease Status: Acute (2) Dysphagia Assessment and Plan: Will need PEG when medically stable Status: Acute (3) HERRERA (acute kidney injury) Status: Acute (4) Dementia Status: Acute (5) Hypernatremia Status: Acute (6) UTI (urinary tract infection) with pyuria Status: Acute
[2018-03-05] MEDS: Potassium Ch 20mEq in D5W 1,000 ML IV SCH (11:27)
--- NOTE | 2018-03-05 15:49 | RAD ---
HISTORY: chf COMPARISON: No prior. FINDINGS: LUNGS: Study is somewhat limited by a partial obscuration of the left mid to lower lung zone due to overlying left hand Poor inspiration with low lung volumes, crowded bronchovascular markings and mild bibasilar atelectasis. Central pulmonary vasculature is also slightly increased which could be secondary to low lung volumes however possibility of developing or mild chronic compensated pulmonary edema/CHF not excluded. PLEURA: No significant pleural effusion identified, no pneumothorax apparent. CARDIOVASCULAR: Heart appears enlarged. OSSEOUS STRUCTURES: No significant abnormalities. VISUALIZED UPPER ABDOMEN: Normal. OTHER FINDINGS: None. IMPRESSION: Study is somewhat limited by a partial obscuration of the left mid to lower lung zone due to overlying left hand Poor inspiration with low lung volumes, crowded bronchovascular markings and mild bibasilar atelectasis. Central pulmonary vasculature is also slightly increased which could be secondary to low lung volumes however possibility of developing or mild chronic compensated pulmonary edema/CHF not excluded
--- NOTE | 2018-03-05 15:52 | CP.PCM.PN ---
Subjective - Date & Time of Evaluation Date of Evaluation: 03/05/18 Time of Evaluation: 15:51 - Subjective Subjective: Patient today more awake than yesterday. She is also verbalizing. But still having difficulty in swallowing. Currently receiving IV fluid. On examination: Vital signs stable. Blood pressure is better Chest good air entry bilaterally Regular heart sound. Contracted extremities. Labs reviewed Assessment and recommendation: 77-year-old female with a history of advanced dementia, contractures. Sacral decubiti 1 first-degree. Admitted with acute renal failure, with associated possible urinary tract infection. Improving renal function noted. Likely dehydration. Dysphagia. Will get a GI evaluation for possible PEG tube. We will continue the IV hydration. Monitor renal function. Swallow evaluation. Will follow the patient Objective - Vital Signs/Intake and Output Vital Signs (last 24 hours): Temp Pulse Resp BP Pulse Ox 97.5 F L 84 24 105/62 98 03/05/18 12:00 03/05/18 15:00 03/05/18 15:00 03/05/18 15:00 03/05/18 15:00 Intake and Output: 03/05/18 03/05/18 06:59 18:59 Intake Total 1000 600 Output Total 610 30 Balance 390 570 - Medications Medications: Current Medications Aspirin (Aspirin Chewable) 81 mg PO DAILY [facility] Last Admin: 03/05/18 09:42 Dose: Not Given Heparin Sodium (Porcine) (Heparin) 5,000 units SC Q12 [facility] Last Admin: 03/05/18 09:44 Dose: 5,000 units Hydrocortisone Sodium Succinate (Solu-Cortef) 50 mg IV Q12 [facility] Stop: 03/07/18 22:01 Doxycycline Hyclate 100 mg/ (Sodium Chloride) 100 mls @ 100 mls/hr IVPB Q12H [facility] PRN Reason: Protocol Last Admin: 03/05/18 13:36 Dose: 100 mls/hr Potassium Chloride/Dextrose (Potassium Chl 20 Meq In D5w) 1,000 mls @ 50 mls/ hr IV .Q20H [facility] Last Admin: 03/05/18 11:27 Dose: 50 mls/hr Pantoprazole Sodium (Protonix Inj) 40 mg IVP DAILY [facility] Last Admin: 03/05/18 09:44 Dose: 40 mg - Labs Labs: 03/05/18 06:31 03/05/18 06:31 PT 12.1 SECONDS (9.7-12.2) 03/03/18 22:11 INR 1.1 03/03/18 22:11 APTT 27 SECONDS (21-34) 03/03/18 22:11
--- NOTE | 2018-03-05 16:11 | PCM.PROC ---
Procedures Attestation:: I certify that I have explained the specified Operation(s) or Procedure(s), risks, benefits and reasonable alternatives to the Patient and/or other person responsible. The opportunity was given to ask questions and all questions answered - Central Line Placement Right Internal Jugular Triple Lumen Catheter Aseptic technique was employed throughout the procedure: Full sterile barriers ( mask, hair cover, sterile gown, sterile gloves), Full body sterile drape, Chloraprep Antiseptic: 30 second prep for IJ or SC sites CVP Time Out Performed: Yes Pt. Placed on Pulse Ox Monitor: Yes Central Line Prep: Chlorhexidine-Alcohol Combination Local Anesthesia Used: Lidocaine 1% Amount of Anesthesia Used (mls): 7 Ultrasound Used for Placement: Yes Central Line Lumen Inserted: triple Central Line Length: 20 cm Post Procedure: Sutured in Place, Good Blood Return, All Ports Aspirated, Flushed, Capped, Sterile Dressing Applied Secured by: Suture Post procedure dressing: Gauze, Clear vapor permeable, Chlorhexidine disc ( Biopatch) Post Procedure X-Ray: Yes Patient Tolerated Procedure: Well Immediate Complications: None
--- NOTE | 2018-03-05 16:45 | PCM.PROC ---
Procedures Attestation:: I certify that I have explained the specified Operation(s) or Procedure(s), risks, benefits and reasonable alternatives to the Patient and/or other person responsible. The opportunity was given to ask questions and all questions answered - Central Line Placement Right Femoral Triple Lumen Catheter Aseptic technique was employed throughout the procedure: Full sterile barriers ( mask, hair cover, sterile gown, sterile gloves), Full body sterile drape, Chloraprep Antiseptic: 2 minute prep for Femoral CVP Time Out Performed: Yes Pt. Placed on Pulse Ox Monitor: Yes Central Line Prep: Chlorhexidine-Alcohol Combination Local Anesthesia Used: Lidocaine 1% Amount of Anesthesia Used (mls): 5 Ultrasound Used for Placement: Yes Central Line Lumen Inserted: triple Central Line Length: 20 cm Post Procedure: Sutured in Place, Good Blood Return, All Ports Aspirated, Flushed, Capped, Sterile Dressing Applied Secured by: Suture Post procedure dressing: Gauze, Clear vapor permeable, Chlorhexidine disc ( Biopatch) Post Procedure X-Ray: No Patient Tolerated Procedure: Well Immediate Complications: None
--- NOTE | 2018-03-05 16:47 | RAD ---
HISTORY: eval central line COMPARISON: . Comparison made with chest radiograph 03/05/2018 at 10:11 hours FINDINGS: Study is somewhat limited due to partial obscuration of the left mid to lower lung zone by overlying left hand artifact There is an in situ right-sided central line which extends over the right base of neck with tip near midline. . This central line needs be repositioned. LUNGS: Right basilar atelectasis. Left lung base cannot be adequately evaluated PLEURA: No significant pleural effusion identified, no pneumothorax apparent. CARDIOVASCULAR: Heart is enlarged OSSEOUS STRUCTURES: No significant abnormalities. VISUALIZED UPPER ABDOMEN: Normal. OTHER FINDINGS: None. IMPRESSION: Limited study as described. Malposition right-sided central line. Note that Dr. Kitchen was informed these findings at approximately 4:43 p.m. with written down and read back verification. Right basilar atelectasis. The left lung base cannot be adequately evaluated
--- NOTE | 2018-03-05 23:33 | CP.PCM.PN ---
Subjective - Date & Time of Evaluation Date of Evaluation: 03/05/18 Time of Evaluation: 23:33 - Subjective Subjective: AFEBRILE, VSS MORE AWAKE AND RESPONSIVE. REPORTED DIFFICULTY SWALLOWING. S/P RT. FEMORAL TLC PLACEMENT 03/05/18 LABS; REVIEWED Objective - Vital Signs/Intake and Output Vital Signs (last 24 hours): Temp Pulse Resp BP Pulse Ox 98.5 F 79 20 116/76 92 L 03/05/18 20:00 03/05/18 23:00 03/05/18 23:00 03/05/18 22:53 03/05/18 23:00 Intake and Output: 03/05/18 03/06/18 18:59 06:59 Intake Total 750 250 Output Total 480 205 Balance 270 45 - Medications Medications: Current Medications Aspirin (Aspirin Chewable) 81 mg PO DAILY [facility] Last Admin: 03/05/18 09:42 Dose: Not Given Heparin Sodium (Porcine) (Heparin) 5,000 units SC Q12 [facility] Last Admin: 03/05/18 21:35 Dose: 5,000 units Hydrocortisone Sodium Succinate (Solu-Cortef) 50 mg IV Q12 [facility] Stop: 03/07/18 22:01 Last Admin: 03/05/18 21:36 Dose: 50 mg Doxycycline Hyclate 100 mg/ (Sodium Chloride) 100 mls @ 100 mls/hr IVPB Q12H [facility] PRN Reason: Protocol Last Admin: 03/05/18 13:36 Dose: 100 mls/hr Potassium Chloride/Dextrose (Potassium Chl 20 Meq In D5w) 1,000 mls @ 50 mls/ hr IV .Q20H [facility] Last Admin: 03/05/18 11:27 Dose: 50 mls/hr Pantoprazole Sodium (Protonix Inj) 40 mg IVP DAILY [facility] Last Admin: 03/05/18 09:44 Dose: 40 mg - Labs Labs: 03/05/18 06:31 03/05/18 06:31 PT 12.1 SECONDS (9.7-12.2) 03/03/18 22:11 INR 1.1 03/03/18 22:11 APTT 27 SECONDS (21-34) 03/03/18 22:11 - Constitutional Appears: No Acute Distress, Confused - Eye Exam Eye Exam: EOMI, PERRL - ENT Exam ENT Exam: Normal Oropharynx - Neck Exam Neck Exam: Normal Inspection - Respiratory Exam Respiratory Exam: Decreased Breath Sounds - Cardiovascular Exam Cardiovascular Exam: REGULAR RHYTHM, +S1, +S2 - GI/Abdominal Exam GI & Abdominal Exam: Soft, Normal Bowel Sounds - Extremities Exam Extremities Exam: Pedal Edema. absent: Calf Tenderness - Neurological Exam Neurological Exam: Altered, Awake, CN II-XII Intact - Psychiatric Exam Psychiatric exam: Normal Mood - Skin Skin Exam: Dry Assessment and Plan (1) Sepsis associated hypotension Assessment & Plan: ON IV DOXYCYCLINE 100 MG iv PIGGYBACK EVERY 12 HOURLY 03/04/18. IV FLUIDS PER INTERIOR DESIGN CONSULTANT. fOLLOW-UP CULTURES TO ADJUST ANTIBIOTICS. Status: Acute (2) UTI (urinary tract infection) with pyuria Assessment & Plan: +VE FOLYS. CTABDOMEN AND PELVIS W/O PO/OR IV CONTRAST NOTED nO NEPHROLITHIASIS/NO hYDRO OR OBSTRUCTIVE UROPATHY ?CYSTITIS. cHOLELITHIASIS AND DISTENDED GB .F/U RUQ US R/O CHOLECYSTITIS PER RADIOLOGY cONTINUE iv DOXYCYCLIN 100 MG EVERY 12 HOURLY. Status: Acute (3) HERRERA (acute kidney injury) Assessment & Plan: RENAL FUNCTION IMPROVING. CREAT 1.8/BUN 95 IV FLUIDS PER PMD Status: Acute (4) Hypernatremia Status: Acute (5) Renal insufficiency Status: Acute (6) Severe dehydration Status: Acute (7) Dementia Status: Acute
[2018-03-06 06:23] LABS: BASO % 0.3 % (0.0-2.0); HEMOGLOBIN 9.5 g/dL (11.0-16.0); LYMPH # 0.7 K/uL (1.0-4.3); LYMPH % 8.5 % (20.0-40.0); MEAN CELL VOLUME 93.1 fL (81.0-99.0); MEAN CORPUSCULAR HGB CONC 32.2 g/dL (33.0-37.0); MEAN PLATELET VOLUME 8.4 fL (7.2-11.7); MONO # 0.5 K/uL (0.0-0.8); MONO % 5.2 % (0.0-10.0); NEUT # 7.5 K/uL (1.8-7.0); PLATELET COUNT 396 K/uL (130-400); RBC 3.18 Mil/uL (3.80-5.20); RED CELL DISTRIBUTION WIDTH 15.3 % (11.5-14.5); WHITE BLOOD COUNT 8.7 K/uL (4.8-10.8)
[2018-03-06 06:45] LABS: ALB/GLOB RATIO 1.6 (1.0-2.1); ALBUMIN 3.9 g/dL (3.5-5.0); CALCIUM 8.7 mg/dl (8.6-10.4)
[2018-03-06] MEDS: Potassium Chloride 20 mEq/15 ml LIQ UD PO SCH ×4 (08:00→20:15)
[2018-03-06] MEDS ORDERED: Potassium Ch 20mEq in D5W 1,000 ML IV SCH (08:15)
[2018-03-06 08:20] LABS: BANDS 1 % (0-2); LYMPHOCYTE 8 % (20-40); MONOCYTE 4 % (0-10); NEUTROPHIL 87 % (50-75); PLATELET ESTIMATE NORMAL (NORMAL); TOTAL CELLS COUNTED 100
[2018-03-06 08:21] LABS: ANISOCYTOSIS SLIGHT
--- NOTE | 2018-03-06 08:59 | RAD ---
HISTORY: NGT COMPARISON: Comparison chest 03/05/2018 FINDINGS: In situ NGT, the tip of which lies right upper quadrant of the abdomen. LUNGS: Persistent elevation right hemidiaphragm with mild right basilar atelectasis. Questionable small right effusion There may be some atelectasis in the left lung base associate with scarring and possible small effusion. . PLEURA: As above. No pneumothorax apparent. CARDIOVASCULAR: Cardiomegaly. OSSEOUS STRUCTURES: Dextroscoliosis mid thoracic spine with the suspected levoscoliosis centered in the upper lumbar region. VISUALIZED UPPER ABDOMEN: Normal. OTHER FINDINGS: None. IMPRESSION: In situ NGT as described. Persistent elevation right hemidiaphragm with mild right basilar atelectasis. Questionable small right effusion There may be some atelectasis in the left lung base associate with scarring and possible small effusion. .
[2018-03-06] MEDS: Potassium Ch 20mEq in D5W 1,000 ML IV SCH (09:39)
--- NOTE | 2018-03-06 10:47 | CP.PCM.PN ---
Subjective - Date & Time of Evaluation Date of Evaluation: 03/06/18 Time of Evaluation: 09:35 - Subjective Subjective: PAtient remains hemodynamically stable, Central line placed in femoral site as no IV access avaialbe -US UE pending PICC line request pending Objective - Vital Signs/Intake and Output Vital Signs (last 24 hours): Temp Pulse Resp BP Pulse Ox 98.1 F 79 17 123/82 100 03/06/18 04:00 03/06/18 06:00 03/06/18 06:00 03/06/18 06:00 03/06/18 06:00 Intake and Output: 03/06/18 03/06/18 06:59 18:59 Intake Total 650 Output Total 530 Balance 120 - Medications Medications: Current Medications Aspirin (Aspirin Chewable) 81 mg PO DAILY [facility] Last Admin: 03/06/18 09:57 Dose: 81 mg Heparin Sodium (Porcine) (Heparin) 5,000 units SC Q12 [facility] Last Admin: 03/05/18 21:35 Dose: 5,000 units Hydrocortisone Sodium Succinate (Solu-Cortef) 50 mg IV Q12 [facility] Stop: 03/07/18 22:01 Last Admin: 03/06/18 09:56 Dose: 50 mg Doxycycline Hyclate 100 mg/ (Sodium Chloride) 100 mls @ 100 mls/hr IVPB Q12H [facility] PRN Reason: Protocol Last Admin: 03/06/18 02:00 Dose: 100 mls/hr Potassium Chloride/Dextrose (Potassium Chl 20 Meq In D5w) 1,000 mls @ 50 mls/ hr IV .Q20H [facility] Last Admin: 03/06/18 09:39 Dose: Not Given Potassium Chloride (Potassium Chloride 10 Meq/100 Ml) 10 meq in 100 mls @ 100 mls/hr IVPB Q1H [facility] Stop: 03/06/18 11:44 Last Admin: 03/06/18 09:57 Dose: 100 mls/hr Potassium Chloride/Dextrose (Potassium Chl 20 Meq In D5w) 1,000 mls @ 75 mls/ hr IV .[id number] [facility] Last Admin: 03/06/18 08:15 Dose: 75 mls/hr Pantoprazole Sodium (Protonix Inj) 40 mg IVP DAILY [facility] Last Admin: 03/06/18 09:57 Dose: 40 mg Potassium Chloride (Potassium Chloride Oral Soln) 40 meq PO Q4H [facility] Stop: 03/06/18 19:46 Last Admin: 03/06/18 08:00 Dose: 40 meq - Labs Labs: 03/06/18 06:15 03/06/18 06:12 PT 12.1 SECONDS (9.7-12.2) 03/03/18 22:11 INR 1.1 03/03/18 22:11 APTT 27 SECONDS (21-34) 03/03/18 22:11 - Constitutional Appears: Well, Non-toxic, No Acute Distress - Head Exam Head Exam: NORMAL INSPECTION - Eye Exam Eye Exam: EOMI - ENT Exam ENT Exam: Mucous Membranes Moist - Respiratory Exam Respiratory Exam: NORMAL BREATHING PATTERN - Cardiovascular Exam Cardiovascular Exam: REGULAR RHYTHM, +S1, +S2, Murmur - GI/Abdominal Exam GI & Abdominal Exam: Normal Bowel Sounds - Rectal Exam Rectal Exam: NORMAL INSPECTION - Extremities Exam Extremities Exam: Normal Inspection Additional comments: contracted extremitites - Neurological Exam Neurological Exam: Alert, Awake - Skin Skin Exam: Normal Color Assessment and Plan - Assessment and Plan (Free Text) Assessment: Patient seen and examined at bedside. Patient more awake, alert. -HERRERA: improving with IV fluids, d/c lerma -sepsis: source likely urine as polys in urine, not in shock, lactic normal, map >65 off pressors -Anemia: monitor serial cbc, -patient failed Oleary bedside swallow eval, NG tube placed, tube feeds started -Hypernetremia: continue D5, add free water to NG tube -ISS lispro -continue dvt/pud ppx -wound care as per ICU protocol -Patient scheduled for PEG in AM -keep NPO post midnight
--- NOTE | 2018-03-06 11:06 | CP.PCM.PN ---
Subjective - Date & Time of Evaluation Date of Evaluation: 03/06/18 Time of Evaluation: 11:04 - Subjective Subjective: f/u dysphagia No RB, melena, fever, chills, SZ, hematuria, hemoptysis, tremor Objective - Vital Signs/Intake and Output Vital Signs (last 24 hours): Temp Pulse Resp BP Pulse Ox 98.1 F 79 17 123/82 100 03/06/18 04:00 03/06/18 06:00 03/06/18 06:00 03/06/18 06:00 03/06/18 06:00 Intake and Output: 03/06/18 03/06/18 06:59 18:59 Intake Total 650 Output Total 530 Balance 120 - Medications Medications: Current Medications Aspirin (Aspirin Chewable) 81 mg PO DAILY [facility] Last Admin: 03/06/18 09:57 Dose: 81 mg Famotidine (Pepcid) 20 mg PO DAILY [facility] Heparin Sodium (Porcine) (Heparin) 5,000 units SC Q12 [facility] Last Admin: 03/05/18 21:35 Dose: 5,000 units Hydrocortisone Sodium Succinate (Solu-Cortef) 50 mg IV Q12 [facility] Stop: 03/07/18 22:01 Last Admin: 03/06/18 09:56 Dose: 50 mg Doxycycline Hyclate 100 mg/ (Sodium Chloride) 100 mls @ 100 mls/hr IVPB Q12H [facility] PRN Reason: Protocol Last Admin: 03/06/18 02:00 Dose: 100 mls/hr Potassium Chloride/Dextrose (Potassium Chl 20 Meq In D5w) 1,000 mls @ 50 mls/ hr IV .Q20H [facility] Last Admin: 03/06/18 09:39 Dose: Not Given Potassium Chloride (Potassium Chloride 10 Meq/100 Ml) 10 meq in 100 mls @ 100 mls/hr IVPB Q1H [facility] Stop: 03/06/18 11:44 Last Admin: 03/06/18 09:57 Dose: 100 mls/hr Potassium Chloride/Dextrose (Potassium Chl 20 Meq In D5w) 1,000 mls @ 75 mls/ hr IV .[id number] [facility] Last Admin: 03/06/18 08:15 Dose: 75 mls/hr Potassium Chloride (Potassium Chloride Oral Soln) 40 meq PO Q4H [facility] Stop: 03/06/18 19:46 Last Admin: 03/06/18 08:00 Dose: 40 meq - Labs Labs: 03/06/18 06:15 03/06/18 06:12 PT 12.1 SECONDS (9.7-12.2) 03/03/18 22:11 INR 1.1 03/03/18 22:11 APTT 27 SECONDS (21-34) 03/03/18 22:11 - Constitutional Appears: Confused - Neck Exam Additional comments: NG tube in - Respiratory Exam Respiratory Exam: Rhonchi - Cardiovascular Exam Cardiovascular Exam: RRR - GI/Abdominal Exam GI & Abdominal Exam: Soft, Normal Bowel Sounds. absent: Tenderness - Neurological Exam Neurological Exam: Awake. absent: Oriented x3 Assessment and Plan (1) Anemia Status: Acute (2) Dysphagia Assessment & Plan: Consider PEG- check swallow eval. NG for meds and feeding Status: Acute (3) HERRERA (acute kidney injury) Status: Acute (4) Dementia Status: Acute (5) Hypernatremia Status: Acute (6) UTI (urinary tract infection) with pyuria Status: Acute
--- NOTE | 2018-03-06 11:36 | CT ---
PROCEDURE: CT Abdomen and Pelvis with Oral contrast. HISTORY: Evaluate NGT placement COMPARISON: Comparison made with CT scan abdomen pelvis 03/04/2018 TECHNIQUE: Contiguous axial images of the abdomen . Coronal and Sagittal reformats generated. This CT exam was performed using one or more of the following dose reduction techniques: Automated exposure control, adjustment of the mA and/or kV according to patient size, and/or use of iterative reconstruction technique. Radiation dose: Total exam DLP = 614.92 mGy-cm. FINDINGS: LOWER THORAX: Small right-sided effusion with mild right basilar atelectasis. Tiny left-sided effusion and minimal left atelectasis. . . Elevation right hemidiaphragm likely due to eventration. Heart size within range of normal. No significant pericardial effusion. Pulmonary trunk appears dilated ; rule out underlying pulmonary arterial hypertension. LIVER: Unremarkable. No gross lesion or ductal dilatation. GALLBLADDER AND BILE DUCTS: Re- demonstrated is cholelithiasis ; clinical correlation recommended to exclude cholecystitis PANCREAS: Pancreas appears atrophic and fatty replaced. SPLEEN: Spleen exhibits normal size and attenuation pattern. ADRENALS: Adrenal glands are poorly delineated KIDNEYS AND URETERS: No evidence of nephrolithiasis or hydronephrosis. BLADDER: Not evaluated. REPRODUCTIVE: Not evaluated APPENDIX: Not evaluated BOWEL: Evaluation of the bowel is limited as the entire pelvis not scanned on this study. In situ NGT the tip of which lies in the pylorus. PERITONEUM: Unremarkable. No fluid collection. No free air. LYMPH NODES: Unremarkable. No enlarged lymph nodes. VASCULATURE: Upper abdominal aorta measures approximately 2.7 cm BONES: No fracture or destructive lesion. Multilevel degenerative spondylosis of the lower thoracic and upper lumbar spine with chronic anterior wedge compression fractures of L3 and L4 segments. There is also a [id number] scoliotic deformity in the upper lumbar region. OTHER FINDINGS: None IMPRESSION: Cholelithiasis. Small right-sided effusion and minor right basilar atelectasis. Tiny left effusion and minimal left basilar atelectasis. NGT as above.
[2018-03-06 18:44] LABS: ALB/GLOB RATIO 1.5 (1.0-2.1); ALBUMIN 3.8 g/dL (3.5-5.0); CALCIUM 8.8 mg/dl (8.6-10.4)
--- NOTE | 2018-03-06 19:50 | CP.PCM.PN ---
Subjective - Date & Time of Evaluation Date of Evaluation: 03/06/18 Time of Evaluation: 19:49 - Subjective Subjective: Patient is today more awake and responding. Currently receiving NG tube feeding. She is awake and responding, able to communicate. Contracted extremities. 1+ sacral decubiti On examination: Vital signs stable. Chest bilateral good air entry. Regular heart sound noted Nontender abdomen Extremities 1+ pedal edema Assessment and recommendation: 77-year-old female admitted with acute renal insufficiency dehydration patient has a history of advanced dementia, dysphagia. The patient is stable will plan for PEG tube feeding. We will speak to the next of kin tomorrow. Will follow the patient. DVT and GI prophylaxis Objective - Vital Signs/Intake and Output Vital Signs (last 24 hours): Temp Pulse Resp BP Pulse Ox 98.0 F 82 22 132/80 100 03/06/18 18:00 03/06/18 19:00 03/06/18 19:00 03/06/18 18:54 03/06/18 19:00 Intake and Output: 03/06/18 03/07/18 18:59 06:59 Intake Total 1235 90 Output Total 380 0 Balance 855 90 - Medications Medications: Current Medications Aspirin (Aspirin Chewable) 81 mg PO DAILY [facility] Last Admin: 03/06/18 09:57 Dose: 81 mg Famotidine (Pepcid) 20 mg PO DAILY [facility] Heparin Sodium (Porcine) (Heparin) 5,000 units SC Q12 [facility] Last Admin: 03/06/18 09:33 Dose: 5,000 units Hydrocortisone Sodium Succinate (Solu-Cortef) 50 mg IV Q12 [facility] Stop: 03/07/18 22:01 Last Admin: 03/06/18 09:56 Dose: 50 mg Doxycycline Hyclate 100 mg/ (Sodium Chloride) 100 mls @ 100 mls/hr IVPB Q12H [facility] PRN Reason: Protocol Last Admin: 03/06/18 14:37 Dose: 100 mls/hr Potassium Chloride/Dextrose (Potassium Chl 20 Meq In D5w) 1,000 mls @ 75 mls/ hr IV .[id number] [facility] Last Admin: 03/06/18 08:15 Dose: 75 mls/hr - Labs Labs: 03/06/18 06:15 03/06/18 18:20 PT 12.1 SECONDS (9.7-12.2) 03/03/18 22:11 INR 1.1 03/03/18 22:11 APTT 27 SECONDS (21-34) 03/03/18 22:11
--- NOTE | 2018-03-06 21:43 | CARD ---
APPROVED REPORT EKG Measurement Heart [id number] CA 180P6 [id number] <Conclusion> Normal sinus rhythm Left axis deviation Possible Anterolateral infarct, age undetermined Probably misplaced V4 to V6 electrodes Please repeat Abnormal ECG
[2018-03-07 06:21] LABS: BASO % 0.2 % (0.0-2.0); HEMOGLOBIN 10.7 g/dL (11.0-16.0); LYMPH # 0.7 K/uL (1.0-4.3); LYMPH % 6.3 % (20.0-40.0); MEAN CORPUSCULAR HEMOGLOBIN 29.4 pg (27.0-31.0); MEAN CORPUSCULAR HGB CONC 31.3 g/dL (33.0-37.0); MEAN PLATELET VOLUME 8.5 fL (7.2-11.7); MONO # 0.3 K/uL (0.0-0.8); MONO % 2.5 % (0.0-10.0); NEUT # 9.6 K/uL (1.8-7.0); PLATELET COUNT 418 K/uL (130-400); RBC 3.63 Mil/uL (3.80-5.20); WHITE BLOOD COUNT 10.5 K/uL (4.8-10.8)
[2018-03-07 06:38] LABS: INR 1.1; PROTHROMBIN TIME 11.6 SECONDS (9.7-12.2)
[2018-03-07 06:39] LABS: ALB/GLOB RATIO 1.3 (1.0-2.1); ALBUMIN 3.8 g/dL (3.5-5.0)
[2018-03-07 08:42] LABS: LYMPHOCYTE 8 % (20-40); MONOCYTE 2 % (0-10); NEUTROPHIL 90 % (50-75); NUCLEATED RED BLOOD CELL 1 % (0-0); PLATELET ESTIMATE SLIGHTLY INCREASED (NORMAL); TOTAL CELLS COUNTED 100
[2018-03-07 08:43] LABS: ANISOCYTOSIS SLIGHT; HYPOCHROMIC SLIGHT
--- NOTE | 2018-03-07 09:37 | VASCLAB ---
PROCEDURE: Lower Extremity Venous Duplex Exam. HISTORY: DVT PRIORS: None. TECHNIQUE: Bilateral common femoral, femoral, popliteal and posterior tibial, peroneal and great saphenous veins were evaluated. Flow was assessed with color Doppler, compressibility, assessment of phasic flow and augmentation response. Report prepared by RHIANNA Marte FINDINGS: RIGHT: 1. Common Femoral Vein: 1.1. Line with dressing in the right groin 2. Femoral Vein: (mid and distal views) 2.1. Compressibility - Fully compressible: Thrombus - None : Flow - Phasic: Augmentation -Normal: Reflux - None. 3. Popliteal Vein: 3.1. Compressibility - Fully compressible: Thrombus - None : Flow - Phasic: Augmentation -Normal: Reflux - None. 4. Posterior Tibial Vein: 4.1. Compressibility - Fully compressible: Thrombus - None: Flow - Phasic: Augmentation -Normal: Reflux - None. 5. Peroneal Vein: 5.1. Compressibility - Fully compressible: Thrombus - None: Flow - Phasic: Augmentation -Normal: Reflux - None. 6. Great Saphenous Vein: 6.1. Compressibility - Fully compressible: Thrombus - None: Flow - Phasic: Augmentation - Normal: Reflux - None. LEFT: 1. Common Femoral Vein: 1.1. Compressibility - Fully compressible: Thrombus - None: Flow - Phasic: Augmentation -Normal: Reflux - None. 2. Femoral Vein: 3. Popliteal Vein: 3.1. Compressibility - Fully compressible: Thrombus - None : Flow - Phasic: Augmentation -Normal: Reflux - None. 4. Posterior Tibial Vein: 5. Peroneal Vein: 6. Great Saphenous Vein: OTHER FINDINGS: Right: None significant. Left: None significant. IMPRESSION: Right: No evidence of deep or superficial vein thrombosis of the right lower extremity, for those imaged veins. Left: No evidence of deep or superficial vein thrombosis of the left lower extremity, for those imaged veins. Limited evaluation of the left lower extremity due to patient limited positioning.
--- NOTE | 2018-03-07 09:37 | VASCLAB ---
PROCEDURE: Right Upper Extremity Venous Duplex Exam HISTORY: DVT PRIORS: None. TECHNIQUE: Right upper extremity, internal jugular, subclavian, axillary, brachial, ulnar, radial, basilic and upper cephalic veins were evaluated. Flow was assessed with color Doppler, compressibility, assessment of phasic flow and augmentation response. Report prepared by RHIANNA Marte FINDINGS: RIGHT: 1. Internal Jugular: 1.1. Compressibility - Fully compressible: Thrombus - None : Flow - Phasic: Augmentation -Normal: Reflux - None. 2. Subclavian: 2.1. Compressibility - Fully compressible: Thrombus - None : Flow - Phasic: Augmentation -Normal: Reflux - None. 3. Axillary: 3.1. Compressibility - Fully compressible: Thrombus - None : Flow - Phasic: Augmentation -Normal: Reflux - None. 4. Brachial: 4.1. Compressibility - Fully compressible: Thrombus - None: Flow - Phasic: Augmentation -Normal: Reflux - None. 5. Ulnar: 5.1. Compressibility - Fully compressible: Thrombus - None: Flow - Phasic: Augmentation -Normal: Reflux - None. 6. Radial: 6.1. Compressibility - Fully compressible: Thrombus - None: Flow - Phasic: Augmentation - Normal: Reflux - None. 7. Cephalic: 7.1. Unable to examine 8. Basilic: 8.1. Unable to examine OTHER FINDINGS: IMPRESSION: Right: No evidence of deep vein thrombosis of the right upper extremity with excellent venous flow. Normal valve function noted of the right side. Patent LEFT internal jugular and left subclavian veins. Unable to complete bilateral examination due to patient limited/contracted positioning.
--- NOTE | 2018-03-07 11:04 | CP.PCM.PN ---
Subjective - Date & Time of Evaluation Date of Evaluation: 03/07/18 Time of Evaluation: 11:01 - Subjective Subjective: more alert, contracted as before pre-renal azotemia improved Na corrected K now elevated- off IV K phos low PEG being considered Objective - Vital Signs/Intake and Output Vital Signs (last 24 hours): Temp Pulse Resp BP Pulse Ox 98.4 F 80 21 150/86 100 03/07/18 08:00 03/07/18 10:01 03/07/18 10:01 03/07/18 10:01 03/07/18 10:01 Intake and Output: 03/07/18 03/07/18 06:59 18:59 Intake Total 275 225 Output Total 0 Balance 275 225 - Medications Medications: Current Medications Amlodipine Besylate (Norvasc) 10 mg PO DAILY [facility] Last Admin: 03/07/18 09:19 Dose: 10 mg Aspirin (Aspirin Chewable) 81 mg PO DAILY [facility] Last Admin: 03/07/18 09:32 Dose: 81 mg Famotidine (Pepcid) 20 mg PO DAILY [facility] Last Admin: 03/07/18 09:32 Dose: 20 mg Heparin Sodium (Porcine) (Heparin) 5,000 units SC Q12 [facility] Last Admin: 03/07/18 09:31 Dose: 5,000 units Hydralazine HCl (Apresoline) 10 mg PO QID [facility] Last Admin: 03/07/18 09:19 Dose: 10 mg Doxycycline Hyclate 100 mg/ (Sodium Chloride) 100 mls @ 100 mls/hr IVPB Q12H [facility] PRN Reason: Protocol Last Admin: 03/07/18 07:11 Dose: 100 mls/hr Dextrose (Dextrose 5% In Water 1000 Ml) 1,000 mls @ 75 mls/hr IV .[id number] [facility] Last Admin: 03/07/18 09:25 Dose: 75 mls/hr - Labs Labs: 03/07/18 06:15 03/07/18 06:15 PT 11.6 SECONDS (9.7-12.2) 03/07/18 06:15 INR 1.1 03/07/18 06:15 APTT 23 SECONDS (21-34) 03/07/18 06:15 - Constitutional Appears: No Acute Distress, Confused, Chronically Ill - Head Exam Head Exam: ATRAUMATIC, NORMAL INSPECTION - Eye Exam Eye Exam: EOMI, Normal appearance - Neck Exam Neck Exam: Normal Inspection. absent: Tenderness - Respiratory Exam Respiratory Exam: Clear to Ausculation Bilateral, NORMAL BREATHING PATTERN - Cardiovascular Exam Cardiovascular Exam: REGULAR RHYTHM, +S1 - GI/Abdominal Exam GI & Abdominal Exam: Soft. absent: Tenderness - Extremities Exam Extremities Exam: Normal Inspection. absent: Tenderness - Neurological Exam Neurological Exam: Altered - Skin Skin Exam: Dry, Warm Assessment and Plan (1) HERRERA (acute kidney injury) Status: Acute (2) Hypernatremia Status: Resolved (3) Severe dehydration Status: Resolved - Assessment and Plan (Free Text) Plan: stop K replete phos follow up lytes
--- NOTE | 2018-03-07 12:46 | CP.PCM.PN ---
Subjective - Date & Time of Evaluation Date of Evaluation: 03/07/18 Time of Evaluation: 12:46 - Subjective Subjective: AFEBRILE, LETHARGIC UNABLETO FOLLOW COMMANDS. DYSPHAGIA PER STAFF UNABLE TO PERFORM SWALLOW EVAL GI ON CASE S/P RT. FEMORAL TLC PLACEMENT 03/05/18 LABS; SODIUM 146 IMPROVING cREATININE 1.1/BUN 61 IMPROVING uRINE CULTURE ;GP COCCI <10,000CFU/ML Objective - Vital Signs/Intake and Output Vital Signs (last 24 hours): Temp Pulse Resp BP Pulse Ox 98.4 F 96 H 22 136/93 H 100 03/07/18 08:00 03/07/18 11:01 03/07/18 11:01 03/07/18 11:01 03/07/18 11:01 Intake and Output: 03/07/18 03/07/18 06:59 18:59 Intake Total 275 225 Output Total 0 Balance 275 225 - Medications Medications: Current Medications Amlodipine Besylate (Norvasc) 10 mg PO DAILY [facility] Last Admin: 03/07/18 09:19 Dose: 10 mg Aspirin (Aspirin Chewable) 81 mg PO DAILY [facility] Last Admin: 03/07/18 09:32 Dose: 81 mg Famotidine (Pepcid) 20 mg PO DAILY [facility] Last Admin: 03/07/18 09:32 Dose: 20 mg Heparin Sodium (Porcine) (Heparin) 5,000 units SC Q12 [facility] Last Admin: 03/07/18 09:31 Dose: 5,000 units Hydralazine HCl (Apresoline) 10 mg PO QID [facility] Last Admin: 03/07/18 09:19 Dose: 10 mg Doxycycline Hyclate 100 mg/ (Sodium Chloride) 100 mls @ 100 mls/hr IVPB Q12H [facility] PRN Reason: Protocol Last Admin: 03/07/18 07:11 Dose: 100 mls/hr Dextrose (Dextrose 5% In Water 1000 Ml) 1,000 mls @ 75 mls/hr IV .[id number] [facility] Last Admin: 03/07/18 09:25 Dose: 75 mls/hr Vancomycin HCl 1 gm/ Sodium (Chloride) 250 mls @ 166.7 mls/hr IVPB Q24H [facility] PRN Reason: Protocol Potassium Phos/Sodium Phos (Neutra-Phos) 1 pkt GT BID [facility] Stop: 03/09/18 11:46 - Labs Labs: 03/07/18 06:15 03/07/18 06:15 PT 11.6 SECONDS (9.7-12.2) 03/07/18 06:15 INR 1.1 03/07/18 06:15 APTT 23 SECONDS (21-34) 03/07/18 06:15 - Constitutional Appears: No Acute Distress, Confused - Head Exam Head Exam: NORMAL INSPECTION - Eye Exam Eye Exam: EOMI, PERRL - ENT Exam ENT Exam: Normal Oropharynx - Neck Exam Neck Exam: Normal Inspection - Respiratory Exam Respiratory Exam: Decreased Breath Sounds, NORMAL BREATHING PATTERN - Cardiovascular Exam Cardiovascular Exam: REGULAR RHYTHM, +S1, +S2 - Extremities Exam Extremities Exam: Pedal Edema. absent: Calf Tenderness - Neurological Exam Neurological Exam: Altered - Psychiatric Exam Psychiatric exam: Flat Affect - Skin Skin Exam: Normal Color, Warm Assessment and Plan (1) Sepsis associated hypotension Assessment & Plan: ON IV DOXYCYCLINE 100 MG iv PIGGYBACK EVERY 12 HOURLY 03/04/18. IV FLUIDS PER [employer]. fOLLOW-UP CULTURES TO ADJUST ANTIBIOTICS. Status: Acute (2) UTI (urinary tract infection) with pyuria Assessment & Plan: +VE FOLYS. CTABDOMEN AND PELVIS W/O PO/OR IV CONTRAST NOTED nO NEPHROLITHIASIS/NO hYDRO OR OBSTRUCTIVE UROPATHY ?CYSTITIS. cHOLELITHIASIS AND DISTENDED GB .F/U RUQ US R/O CHOLECYSTITIS PER RADIOLOGY CONTINUE iv DOXYCYCLINE 100 MG EVERY 12 HOURLY. DC IV VANCOMYCIN Status: Acute (3) HERRERA (acute kidney injury) Status: Acute (4) Hypernatremia Assessment & Plan: SODIUM 146 IMPROVING. iv FLUIDS PER RENAL. Status: Resolved (5) Renal insufficiency Status: Acute (6) Severe dehydration Status: Resolved (7) Dementia Status: Acute
--- NOTE | 2018-03-07 13:44 | CP.PCM.PN ---
Subjective - Date & Time of Evaluation Date of Evaluation: 03/07/18 Time of Evaluation: 13:20 - Subjective Subjective: f/u dysphagia, OMS Pt is confused. Dehydration- improving, No report of RB, melena, CP, SOB, chills ,[place], cough, SZ, hematuria, hemoptysis Objective - Vital Signs/Intake and Output Vital Signs (last 24 hours): Temp Pulse Resp BP Pulse Ox 98.4 F 96 H 22 136/93 H 100 03/07/18 08:00 03/07/18 11:01 03/07/18 11:01 03/07/18 11:01 03/07/18 11:01 Intake and Output: 03/07/18 03/07/18 06:59 18:59 Intake Total 275 225 Output Total 0 Balance 275 225 - Medications Medications: Current Medications Amlodipine Besylate (Norvasc) 10 mg PO DAILY [facility] Last Admin: 03/07/18 09:19 Dose: 10 mg Aspirin (Aspirin Chewable) 81 mg PO DAILY [facility] Last Admin: 03/07/18 09:32 Dose: 81 mg Famotidine (Pepcid) 20 mg PO DAILY [facility] Last Admin: 03/07/18 09:32 Dose: 20 mg Heparin Sodium (Porcine) (Heparin) 5,000 units SC Q12 [facility] Last Admin: 03/07/18 09:31 Dose: 5,000 units Hydralazine HCl (Apresoline) 10 mg PO QID [facility] Last Admin: 03/07/18 09:19 Dose: 10 mg Doxycycline Hyclate 100 mg/ (Sodium Chloride) 100 mls @ 100 mls/hr IVPB Q12H [facility] PRN Reason: Protocol Last Admin: 03/07/18 07:11 Dose: 100 mls/hr Dextrose (Dextrose 5% In Water 1000 Ml) 1,000 mls @ 75 mls/hr IV .[id number] [facility] Last Admin: 03/07/18 09:25 Dose: 75 mls/hr Vancomycin/Sodium Chloride (Vancomycin 1 Gm/Ns 200 Ml) 1 gm in 200 mls @ 133.333 mls/hr IVPB Q24H [facility] PRN Reason: Protocol Potassium Phos/Sodium Phos (Neutra-Phos) 1 pkt GT BID [facility] Stop: 03/09/18 11:46 - Labs Labs: 03/07/18 06:15 03/07/18 06:15 PT 11.6 SECONDS (9.7-12.2) 03/07/18 06:15 INR 1.1 03/07/18 06:15 APTT 23 SECONDS (21-34) 03/07/18 06:15 - Constitutional Appears: Non-toxic - Respiratory Exam Respiratory Exam: Clear to Ausculation Bilateral - Cardiovascular Exam Cardiovascular Exam: RRR - GI/Abdominal Exam GI & Abdominal Exam: Soft, Normal Bowel Sounds. absent: Guarding, Tenderness, Mass - Neurological Exam Neurological Exam: absent: Oriented x3 Assessment and Plan (1) Anemia Assessment & Plan: chronic Status: Acute (2) Dysphagia Assessment & Plan: OMS. Not eating. Needs PEG. I called [place] now , rueprto Barraza for consent,. I left message on machine Dehydration is improving Status: Acute (3) HERRERA (acute kidney injury) Status: Acute (4) Dementia Status: Acute (5) Hypernatremia Assessment & Plan: dehydration Status: Resolved (6) UTI (urinary tract infection) with pyuria Status: Acute
[2018-03-07] MEDS ORDERED: Vancomycin 1 gm/NS 200 ml 1 GM/200 ML BAG IVPB SCH (14:00)
[2018-03-07] MEDS: Potassium & Sodium Phosphate GT SCH ×2 (14:06→17:49)
[2018-03-08 06:46] LABS: ALB/GLOB RATIO 1.4 (1.0-2.1); ALBUMIN 3.4 g/dL (3.5-5.0); ALT/SGPT 28 U/L (9-52); AST/SGOT 28 U/L (14-36); BLOOD UREA NITROGEN 43 mg/dL (7-17); CALCIUM 8.5 mg/dl (8.6-10.4); GFR AFRICAN-AMERICAN > 60; GFR NON-AFRICAN AMERICAN 54
--- NOTE | 2018-03-08 08:49 | CP.PCM.PN ---
Subjective - Date & Time of Evaluation Date of Evaluation: 03/08/18 Time of Evaluation: 08:48 - Subjective Subjective: seen and examined labs noted pt is non verbal, ros cannot be obtained Objective - Vital Signs/Intake and Output Vital Signs (last 24 hours): Temp Pulse Resp BP Pulse Ox 98.5 F 89 24 107/70 100 03/08/18 04:00 03/08/18 04:00 03/08/18 04:00 03/08/18 04:00 03/08/18 04:00 Intake and Output: 03/08/18 03/08/18 06:59 18:59 Intake Total 1725 965 Output Total 600 500 Balance 1125 465 - Medications Medications: Current Medications Aspirin (Aspirin Chewable) 81 mg PO DAILY [facility] Last Admin: 03/07/18 09:32 Dose: 81 mg Famotidine (Pepcid) 20 mg PO DAILY [facility] Last Admin: 03/07/18 09:32 Dose: 20 mg Heparin Sodium (Porcine) (Heparin) 5,000 units SC Q12 [facility] Last Admin: 03/07/18 21:40 Dose: 5,000 units Hydralazine HCl (Apresoline) 25 mg PO BID [facility] Doxycycline Hyclate 100 mg/ (Sodium Chloride) 100 mls @ 100 mls/hr IVPB Q12H [facility] PRN Reason: Protocol Last Admin: 03/08/18 02:30 Dose: 100 mls/hr Dextrose (Dextrose 5% In Water 1000 Ml) 1,000 mls @ 75 mls/hr IV .[id number] [facility] Last Admin: 03/08/18 03:04 Dose: 75 mls/hr Potassium Phos/Sodium Phos (Neutra-Phos) 1 pkt GT BID [facility] Stop: 03/09/18 11:46 Last Admin: 03/07/18 17:49 Dose: 1 pkt - Labs Labs: 03/07/18 06:15 03/08/18 06:09 PT 11.6 SECONDS (9.7-12.2) 03/07/18 06:15 INR 1.1 03/07/18 06:15 APTT 23 SECONDS (21-34) 03/07/18 06:15 - Constitutional Appears: Non-toxic, No Acute Distress, Chronically Ill - Head Exam Head Exam: NORMAL INSPECTION, NORMOCEPHALIC - Eye Exam Eye Exam: Normal appearance - ENT Exam ENT Exam: Mucous Membranes Dry (ng tube) - Neck Exam Neck Exam: Normal Inspection - Respiratory Exam Respiratory Exam: NORMAL BREATHING PATTERN - Cardiovascular Exam Cardiovascular Exam: Tachycardia, REGULAR RHYTHM - GI/Abdominal Exam GI & Abdominal Exam: Distended, Soft - Extremities Exam Extremities Exam: Normal Inspection - Neurological Exam Neurological Exam: Altered, Awake - Skin Skin Exam: Dry, Intact Assessment and Plan (1) HERRERA (acute kidney injury) Status: Acute (2) Dysphagia Status: Acute (3) UTI (urinary tract infection) with pyuria Status: Acute (4) Severe dehydration Status: Resolved - Assessment and Plan (Free Text) Assessment: maintain dextrose dc norvasc, hydralazine dose changed may need peg daily chems, replete electrolytes as needed
[2018-03-08] MEDS: Potassium & Sodium Phosphate GT SCH ×2 (09:48→18:20)
[2018-03-08] MEDS: Linezolid 600 mg in D5W 300 ml 600 MG/300 ML BAG IVPB SCH ×2 (11:53→22:04)
--- NOTE | 2018-03-08 13:00 | CP.PCM.PN ---
Subjective - Date & Time of Evaluation Date of Evaluation: 03/08/18 Time of Evaluation: 12:57 - Subjective Subjective: F/U dysphagia. No report of chills, Cp, SOB, BETANCOURT, cough, RB, melena, sZ, tremor Objective - Vital Signs/Intake and Output Vital Signs (last 24 hours): Temp Pulse Resp BP Pulse Ox 98.5 F 98 H 24 107/70 100 03/08/18 04:00 03/08/18 10:00 03/08/18 04:00 03/08/18 04:00 03/08/18 04:00 Intake and Output: 03/08/18 03/08/18 06:59 18:59 Intake Total 1725 1765 Output Total 600 1250 Balance 1125 515 - Medications Medications: Current Medications Aspirin (Aspirin Chewable) 81 mg PO DAILY [facility] Last Admin: 03/08/18 09:48 Dose: 81 mg Famotidine (Pepcid) 20 mg PO DAILY [facility] Last Admin: 03/08/18 09:48 Dose: 20 mg Heparin Sodium (Porcine) (Heparin) 5,000 units SC Q12 [facility] Last Admin: 03/08/18 09:48 Dose: 5,000 units Hydralazine HCl (Apresoline) 25 mg PO BID [facility] Last Admin: 03/08/18 09:48 Dose: 25 mg Dextrose (Dextrose 5% In Water 1000 Ml) 1,000 mls @ 75 mls/hr IV .[id number] [facility] Last Admin: 03/08/18 03:04 Dose: 75 mls/hr Linezolid (Zyvox 600mg/300ml D5w) 600 mg in 300 mls @ 200 mls/hr IVPB Q12 [facility] PRN Reason: Protocol Last Admin: 03/08/18 11:53 Dose: 200 mls/hr Potassium Phos/Sodium Phos (Neutra-Phos) 1 pkt GT BID [facility] Stop: 03/09/18 11:46 Last Admin: 03/08/18 09:48 Dose: 1 pkt - Labs Labs: 03/07/18 06:15 03/08/18 06:09 PT 11.6 SECONDS (9.7-12.2) 03/07/18 06:15 INR 1.1 03/07/18 06:15 APTT 23 SECONDS (21-34) 03/07/18 06:15 - Constitutional Appears: Non-toxic - Respiratory Exam Respiratory Exam: Clear to Ausculation Bilateral - Cardiovascular Exam Cardiovascular Exam: RRR - GI/Abdominal Exam GI & Abdominal Exam: Soft, Normal Bowel Sounds. absent: Tenderness - Neurological Exam Neurological Exam: absent: Oriented x3 Assessment and Plan (1) Anemia Status: Acute (2) Dysphagia Assessment & Plan: Can not eat on own. For PEG wednesday. I call Susan LEHMAN again now- I got consent for PEG. I explained PEG procedure and risks including bleeding, perforation, infection. PEG for wednesday. Hold heparin wednesday Status: Acute (3) HERRERA (acute kidney injury) Status: Acute (4) Dementia Status: Acute (5) Hypernatremia Status: Resolved (6) UTI (urinary tract infection) with pyuria Status: Acute
--- NOTE | 2018-03-08 19:30 | CP.PCM.PN ---
Subjective - Date & Time of Evaluation Date of Evaluation: 03/07/18 Time of Evaluation: 19:29 - Subjective Subjective: Patient is more awake and responding. Still having difficulty in eating. NG tube feeding on. I spoke to the patient's next of kin. At any I discussed about the PEG tube. She is agreeing for it. On examination: Vital signs stable. Chest bilateral good air entry. Regular heart sound. Abdomen soft nontender. 1+ pedal edema Labs reviewed BUN and creatinine is improving Assessment/recommendation: 77-year-old female with a history of advanced dementia, contracted. Patient admitted with UTI, acute renal insufficiency, dehydration. Improving. For possible PEG tube. We will continue to monitor. Objective - Vital Signs/Intake and Output Vital Signs (last 24 hours): Temp Pulse Resp BP Pulse Ox 98.4 F 100 H 21 130/79 100 03/08/18 12:00 03/08/18 12:00 03/08/18 12:00 03/08/18 12:00 03/08/18 12:00 Intake and Output: 03/08/18 03/09/18 18:59 06:59 Intake Total 2225 Output Total 1250 Balance 975 - Medications Medications: Current Medications Aspirin (Aspirin Chewable) 81 mg PO DAILY [facility] Last Admin: 03/08/18 09:48 Dose: 81 mg Famotidine (Pepcid) 20 mg PO DAILY [facility] Last Admin: 03/08/18 09:48 Dose: 20 mg Heparin Sodium (Porcine) (Heparin) 5,000 units SC Q12 [facility] Last Admin: 03/08/18 09:48 Dose: 5,000 units Hydralazine HCl (Apresoline) 25 mg PO BID [facility] Last Admin: 03/08/18 18:19 Dose: Not Given Dextrose (Dextrose 5% In Water 1000 Ml) 1,000 mls @ 75 mls/hr IV .[id number] [facility] Last Admin: 03/08/18 12:57 Dose: 75 mls/hr Linezolid (Zyvox 600mg/300ml D5w) 600 mg in 300 mls @ 200 mls/hr IVPB Q12 [facility] PRN Reason: Protocol Last Admin: 03/08/18 11:53 Dose: 200 mls/hr Potassium Phos/Sodium Phos (Neutra-Phos) 1 pkt GT BID [facility] Stop: 03/09/18 11:46 Last Admin: 03/08/18 09:48 Dose: 1 pkt - Labs Labs: 03/07/18 06:15 03/08/18 06:09 PT 11.6 SECONDS (9.7-12.2) 03/07/18 06:15 INR 1.1 03/07/18 06:15 APTT 23 SECONDS (21-34) 03/07/18 06:15
--- NOTE | 2018-03-08 19:32 | CP.PCM.PN ---
Subjective - Date & Time of Evaluation Date of Evaluation: 03/08/18 Time of Evaluation: 19:30 - Subjective Subjective: Patient is more awake and responding. NG tube is on. Patient has a right femoral line. No fever no chills noted. Vital signs stable otherwise On examination: Vital signs chest good air entry regular heart sounds nontender abdominal pedal edema Labs reviewed Assessment and recognition: 77 female with a history of advanced dementia. Stage I decubiti. Contracted. Malnourishment. Acute renal failure. Dehydration. For possible PEG in the morning. We will continue the IV antibiotic Zyvox through the femoral IV line for now. Next to 24 hours line can be removed, and the medications can be given via PEG. Following that the patient can be discharged to rehab. Will follow the patient Objective - Vital Signs/Intake and Output Vital Signs (last 24 hours): Temp Pulse Resp BP Pulse Ox 98.4 F 100 H 21 130/79 100 03/08/18 12:00 03/08/18 12:00 03/08/18 12:00 03/08/18 12:00 03/08/18 12:00 Intake and Output: 03/08/18 03/09/18 18:59 06:59 Intake Total 2225 Output Total 1250 Balance 975 - Medications Medications: Current Medications Aspirin (Aspirin Chewable) 81 mg PO DAILY [facility] Last Admin: 03/08/18 09:48 Dose: 81 mg Famotidine (Pepcid) 20 mg PO DAILY [facility] Last Admin: 03/08/18 09:48 Dose: 20 mg Heparin Sodium (Porcine) (Heparin) 5,000 units SC Q12 [facility] Last Admin: 03/08/18 09:48 Dose: 5,000 units Hydralazine HCl (Apresoline) 25 mg PO BID [facility] Last Admin: 03/08/18 18:19 Dose: Not Given Dextrose (Dextrose 5% In Water 1000 Ml) 1,000 mls @ 75 mls/hr IV .[id number] [facility] Last Admin: 03/08/18 12:57 Dose: 75 mls/hr Linezolid (Zyvox 600mg/300ml D5w) 600 mg in 300 mls @ 200 mls/hr IVPB Q12 [facility] PRN Reason: Protocol Last Admin: 03/08/18 11:53 Dose: 200 mls/hr Potassium Phos/Sodium Phos (Neutra-Phos) 1 pkt GT BID [facility] Stop: 03/09/18 11:46 Last Admin: 03/08/18 09:48 Dose: 1 pkt - Labs Labs: 03/07/18 06:15 03/08/18 06:09 PT 11.6 SECONDS (9.7-12.2) 03/07/18 06:15 INR 1.1 03/07/18 06:15 APTT 23 SECONDS (21-34) 03/07/18 06:15
--- NOTE | 2018-03-08 23:57 | CP.PCM.PN ---
Subjective - Date & Time of Evaluation Date of Evaluation: 03/08/18 Time of Evaluation: 23:56 - Subjective Subjective: AFEBRILE, VS BP 98/70 LETHARGIC UNABLETO FOLLOW COMMANDS. DYSPHAGIA +VE INFORMED BY RN- .URINE CULTURE POSITIVE FOR ENTEROCOCCUS FAECALIS (+VE VRE ) WBC 10.5 CREAT 1.0/BUN 43 IMPROVING Objective - Vital Signs/Intake and Output Vital Signs (last 24 hours): Temp Pulse Resp BP Pulse Ox 97.9 F 91 H 20 96/67 L 100 03/08/18 20:00 03/08/18 20:00 03/08/18 20:00 03/08/18 20:00 03/08/18 20:00 Intake and Output: 03/08/18 03/09/18 18:59 06:59 Intake Total 2585 305 Output Total 1650 Balance 935 305 - Medications Medications: Current Medications Aspirin (Aspirin Chewable) 81 mg PO DAILY [facility] Last Admin: 03/08/18 09:48 Dose: 81 mg Famotidine (Pepcid) 20 mg PO DAILY [facility] Last Admin: 03/08/18 09:48 Dose: 20 mg Heparin Sodium (Porcine) (Heparin) 5,000 units SC Q12 [facility] Last Admin: 03/08/18 22:05 Dose: 5,000 units Hydralazine HCl (Apresoline) 25 mg PO BID [facility] Last Admin: 03/08/18 18:19 Dose: Not Given Linezolid (Zyvox 600mg/300ml D5w) 600 mg in 300 mls @ 200 mls/hr IVPB Q12 [facility] PRN Reason: Protocol Last Admin: 03/08/18 22:04 Dose: 200 mls/hr Dextrose (Dextrose 10% In Water) 1,000 mls @ 50 mls/hr IV .Q20H [facility] Last Admin: 03/08/18 20:22 Dose: 50 mls/hr Potassium Phos/Sodium Phos (Neutra-Phos) 1 pkt GT BID [facility] Stop: 03/09/18 11:46 Last Admin: 03/08/18 18:20 Dose: 1 pkt - Labs Labs: 03/07/18 06:15 03/08/18 06:09 PT 11.6 SECONDS (9.7-12.2) 03/07/18 06:15 INR 1.1 03/07/18 06:15 APTT 23 SECONDS (21-34) 03/07/18 06:15 - Constitutional Appears: No Acute Distress, Confused - Head Exam Head Exam: NORMAL INSPECTION - Eye Exam Eye Exam: PERRL - ENT Exam ENT Exam: Mucous Membranes Moist - Neck Exam Neck Exam: Normal Inspection - Respiratory Exam Respiratory Exam: NORMAL BREATHING PATTERN - Cardiovascular Exam Cardiovascular Exam: REGULAR RHYTHM, +S1, +S2 - Extremities Exam Extremities Exam: Pedal Edema. absent: Calf Tenderness - Neurological Exam Neurological Exam: Altered - Psychiatric Exam Psychiatric exam: Flat Affect - Skin Skin Exam: Normal Color, Warm Assessment and Plan (1) Sepsis associated hypotension Assessment & Plan: BLOOD CULTURES NEGATIVE TO DATE. uRINE CULTURE +VE VRE. DC IV DOXYCYCLINE 100 MG iv PIGGYBACK EVERY 12 HOURLY 03/04/18. BLOOD CULTURES 2 SETS TODAY sTRAIGHT CATHETERIZE AND SEND MIDSTREAM ua URINE CULTURE AND KEEP THE Martínez IN FOR NOW. START iv zYVOX 600 MG EVERY 12 HOURLY FOR VRE. STRICT CONTACT PRECAUTIONS AND HANDWASHING. Status: Acute (2) UTI (urinary tract infection) with pyuria Assessment & Plan: ANTIBIOTICS ADJUSTED. fOLLOW-UP REPEAT ua URINE CULTURE CATHETERIZED SAMPLE. Status: Acute (3) HERRERA (acute kidney injury) Assessment & Plan: PATIENT'S HYDRATION AND RENAL FUNCTIONS IMPROVING. cREATININE 1.0/bun 43. Status: Acute (4) Hypernatremia Status: Resolved (5) Renal insufficiency Status: Acute (6) Severe dehydration Status: Resolved (7) Dementia Status: Acute
[2018-03-09 06:19] LABS: BASO % 0.2 % (0.0-2.0); EOS # 0.3 K/uL (0.0-0.7); EOS % 2.2 % (0.0-4.0); HEMOGLOBIN 10.3 g/dL (11.0-16.0); LYMPH # 2.3 K/uL (1.0-4.3); LYMPH % 16.7 % (20.0-40.0); MEAN CELL VOLUME 92.3 fL (81.0-99.0); MEAN CORPUSCULAR HEMOGLOBIN 29.4 pg (27.0-31.0); MEAN CORPUSCULAR HGB CONC 31.9 g/dL (33.0-37.0); MEAN PLATELET VOLUME 8.3 fL (7.2-11.7); MONO # 0.6 K/uL (0.0-0.8); MONO % 4.5 % (0.0-10.0); NEUT # 10.4 K/uL (1.8-7.0); NEUT % 76.4 % (50.0-75.0); NRBC % 0.1 % (0.0-2.0); RBC 3.51 Mil/uL (3.80-5.20); RED CELL DISTRIBUTION WIDTH 15.7 % (11.5-14.5); WHITE BLOOD COUNT 13.6 K/uL (4.8-10.8)
[2018-03-09 06:26] LABS: INR 1.1; PROTHROMBIN TIME 12.1 SECONDS (9.7-12.2)
[2018-03-09 06:33] LABS: ALB/GLOB RATIO 1.4 (1.0-2.1); ALBUMIN 3.3 g/dL (3.5-5.0); ALT/SGPT 27 U/L (9-52); AST/SGOT 25 U/L (14-36); BLOOD UREA NITROGEN 34 mg/dL (7-17); CALCIUM 8.3 mg/dl (8.6-10.4); GFR AFRICAN-AMERICAN > 60; GFR NON-AFRICAN AMERICAN > 60
[2018-03-09] MEDS: Potassium & Sodium Phosphate GT SCH (09:29)
[2018-03-09] MEDS: Linezolid 600 mg in D5W 300 ml 600 MG/300 ML BAG IVPB SCH ×2 (10:11→21:45)
--- NOTE | 2018-03-09 11:57 | CP.PCM.PN ---
Subjective - Date & Time of Evaluation Date of Evaluation: 03/09/18 Time of Evaluation: 11:57 - Subjective Subjective: temperature 97.4 BP 87/57 PT. LETHARGIC AND WEAK BLOOD CULTURES 1:2 SETS REPORTED GRAM-POSITIVE COCCI IN CLUSTERS URINE CULTURES +VE VRE. PT ON IV ZYVOX 600 MG EVERY 12 HOURLY. RENAL FUNCTIONS IMPROVING. Objective - Vital Signs/Intake and Output Vital Signs (last 24 hours): Temp Pulse Resp BP Pulse Ox 98.4 F 94 H 18 97/71 L 100 03/09/18 04:00 03/09/18 04:00 03/09/18 04:00 03/09/18 04:00 03/09/18 04:00 Intake and Output: 03/09/18 03/09/18 06:59 18:59 Intake Total 870 Output Total 225 Balance 645 - Medications Medications: Current Medications Aspirin (Aspirin Chewable) 81 mg PO DAILY [facility] Last Admin: 03/09/18 09:29 Dose: Not Given Famotidine (Pepcid) 20 mg PO DAILY [facility] Last Admin: 03/09/18 09:29 Dose: Not Given Heparin Sodium (Porcine) (Heparin) 5,000 units SC Q12 [facility] Last Admin: 03/09/18 09:29 Dose: Not Given Hydralazine HCl (Apresoline) 25 mg PO BID [facility] Last Admin: 03/09/18 09:28 Dose: Not Given Linezolid (Zyvox 600mg/300ml D5w) 600 mg in 300 mls @ 200 mls/hr IVPB Q12 [facility] PRN Reason: Protocol Last Admin: 03/09/18 10:11 Dose: 200 mls/hr Dextrose (Dextrose 10% In Water) 1,000 mls @ 50 mls/hr IV .Q20H [facility] Last Admin: 03/08/18 20:22 Dose: 50 mls/hr - Labs Labs: 03/09/18 06:13 03/09/18 06:13 PT 12.1 SECONDS (9.7-12.2) 03/09/18 06:13 INR 1.1 03/09/18 06:13 APTT 28 SECONDS (21-34) D 03/09/18 06:13 - Constitutional Appears: No Acute Distress, Chronically Ill - Head Exam Head Exam: NORMAL INSPECTION - Eye Exam Eye Exam: PERRL - ENT Exam ENT Exam: Normal Exam - Neck Exam Neck Exam: Normal Inspection - Respiratory Exam Respiratory Exam: Decreased Breath Sounds, NORMAL BREATHING PATTERN - Cardiovascular Exam Cardiovascular Exam: Tachycardia, REGULAR RHYTHM, +S1, +S2 - GI/Abdominal Exam GI & Abdominal Exam: Soft, Normal Bowel Sounds - Extremities Exam Extremities Exam: Normal Capillary Refill, Pedal Edema (1+). absent: Calf Tenderness - Neurological Exam Neurological Exam: Altered, Awake - Psychiatric Exam Psychiatric exam: Flat Affect - Skin Skin Exam: Normal Color, Warm Assessment and Plan (1) Sepsis associated hypotension Assessment & Plan: BLOOD CULTURES 1:2 SETS -GRAM-POSITIVE COCCI IN CLUSTERS--PENDING IDENTIFICATION URINE CULTURE +VE VRE. CONTINUE iv zYVOX 600 MG EVERY 12 HOURLY FOR VRE. 03/08/18 STRICT CONTACT PRECAUTIONS. fOLLOW-UP CULTURES. Status: Acute (2) UTI (urinary tract infection) with pyuria Assessment & Plan: PATIENT HAS A Martínez CATHETER INSERTED 03/08/18. fOLLOW-UP CULTURES REPEAT-PENDING. Status: Acute (3) HERRERA (acute kidney injury) Assessment & Plan: IMPROVING Status: Acute (4) Hypernatremia Status: Resolved (5) Renal insufficiency Status: Acute (6) Severe dehydration Status: Resolved (7) Dementia Status: Acute
--- NOTE | 2018-03-09 12:49 | CP.PCM.PN ---
Subjective - Date & Time of Evaluation Date of Evaluation: 03/09/18 Time of Evaluation: 12:46 - Subjective Subjective: opens eyes when palpated; nonverbal HERRERA improved with fluids VRE UTI noted Now more hypotensive- BP meds down-regulated Objective - Vital Signs/Intake and Output Vital Signs (last 24 hours): Temp Pulse Resp BP Pulse Ox 98.4 F 94 H 18 97/71 L 100 03/09/18 04:00 03/09/18 04:00 03/09/18 04:00 03/09/18 04:00 03/09/18 04:00 Intake and Output: 03/09/18 03/09/18 06:59 18:59 Intake Total 870 Output Total 225 Balance 645 - Medications Medications: Current Medications Aspirin (Aspirin Chewable) 81 mg PO DAILY [facility] Last Admin: 03/09/18 09:29 Dose: Not Given Famotidine (Pepcid) 20 mg PO DAILY [facility] Last Admin: 03/09/18 09:29 Dose: Not Given Heparin Sodium (Porcine) (Heparin) 5,000 units SC Q12 [facility] Last Admin: 03/09/18 09:29 Dose: Not Given Hydralazine HCl (Apresoline) 25 mg PO BID [facility] Last Admin: 03/09/18 09:28 Dose: Not Given Linezolid (Zyvox 600mg/300ml D5w) 600 mg in 300 mls @ 200 mls/hr IVPB Q12 [facility] PRN Reason: Protocol Last Admin: 03/09/18 10:11 Dose: 200 mls/hr Dextrose (Dextrose 10% In Water) 1,000 mls @ 50 mls/hr IV .Q20H [facility] Last Admin: 03/08/18 20:22 Dose: 50 mls/hr - Labs Labs: 03/09/18 06:13 03/09/18 06:13 PT 12.1 SECONDS (9.7-12.2) 03/09/18 06:13 INR 1.1 03/09/18 06:13 APTT 28 SECONDS (21-34) D 03/09/18 06:13 - Constitutional Appears: No Acute Distress, Chronically Ill - Head Exam Head Exam: ATRAUMATIC, NORMAL INSPECTION - Eye Exam Eye Exam: EOMI, Normal appearance - Neck Exam Neck Exam: Normal Inspection. absent: Tenderness - Respiratory Exam Respiratory Exam: Clear to Ausculation Bilateral, NORMAL BREATHING PATTERN - Cardiovascular Exam Cardiovascular Exam: REGULAR RHYTHM, +S1 - GI/Abdominal Exam GI & Abdominal Exam: Soft. absent: Tenderness - Extremities Exam Extremities Exam: Normal Inspection. absent: Tenderness - Neurological Exam Neurological Exam: Altered - Skin Skin Exam: Dry, Warm - Additional Findings Additional findings: mild IV fluids GT feeds replete mag Assessment and Plan (1) HERRERA (acute kidney injury) Status: Acute (2) Hypernatremia Status: Resolved (3) Severe dehydration Status: Resolved
[2018-03-09] MEDS: Magnesium Sulfate 1 gm in D5W 1 GM/100 ML BAG IVPB SCH ×2 (13:18→15:30)
[2018-03-09] MEDS ORDERED: Propofol 10 mg/ml Inj (20 ML) ONE (13:29)
[2018-03-09] MEDS ORDERED: Etomidate 20 mg/10ml Inj IV ONE (14:35)
--- NOTE | 2018-03-09 14:47 | CP.PCM.CON ---
Past Patient History - Past Medical History & Family History Past Medical History?: Yes - Past Social History Smoking Status: Unknown - CARDIAC Hx Cardiac Disorders: Yes Hx Hypertension: Yes - PULMONARY Hx Respiratory Disorders: No - NEUROLOGICAL Other/Comment: Unknown-Pt is aphasic - HEENT Other/Comment: Unknown - RENAL Hx Renal Failure: Yes (CKD, Renal insuffuency,) - MUSCULOSKELETAL/RHEUMATOLOGICAL Hx Falls: Yes - GENITOURINARY/GYNECOLOGICAL Other/Comment: per [facility] lerma insertion in January 2018 - PSYCHIATRIC Hx Substance Use: No - SURGICAL HISTORY Hx Surgeries: Yes Hx Breast Biopsy: Yes Hx Section: Yes - ANESTHESIA Hx Anesthesia: Yes Meds Allergies/Adverse Reactions: Allergies Allergy/AdvReac Type Severity Reaction Status Date / Time Penicillins Allergy Intermediate Verified 03/03/18 21:55 - Medications Medications: Current Medications Aspirin (Aspirin Chewable) 81 mg PO DAILY [facility] Last Admin: 03/09/18 09:29 Dose: Not Given Famotidine (Pepcid) 20 mg PO DAILY [facility] Last Admin: 03/09/18 09:29 Dose: Not Given Heparin Sodium (Porcine) (Heparin) 5,000 units SC Q12 [facility] Last Admin: 03/09/18 09:29 Dose: Not Given Hydralazine HCl (Apresoline) 25 mg PO BID [facility] Last Admin: 03/09/18 09:28 Dose: Not Given Linezolid (Zyvox 600mg/300ml D5w) 600 mg in 300 mls @ 200 mls/hr IVPB Q12 [facility] PRN Reason: Protocol Last Admin: 03/09/18 10:11 Dose: 200 mls/hr Dextrose (Dextrose 10% In Water) 1,000 mls @ 50 mls/hr IV .Q20H [facility] Last Admin: 03/08/18 20:22 Dose: 50 mls/hr Results - Vital Signs Recent Vital Signs: Last Vital Signs Temp 98.4 F 03/09/18 13:51 Pulse 94 H 03/09/18 13:51 Resp 18 03/09/18 13:51 BP 97/71 L 03/09/18 13:51 Pulse Ox 100 03/09/18 13:51 - Labs Result Diagrams: 03/09/18 06:13 03/09/18 06:13 Labs: Laboratory Results - last 24 hr 03/08/18 03/08/18 03/09/18 17:43 23:47 05:28 WBC RBC Hgb Hct MCV MCH MCHC RDW Plt Count MPV Neut % (Auto) Lymph % (Auto) [place] % (Auto) Eos % (Auto) Baso % (Auto) Neut # (Auto) Lymph # (Auto) [place] # (Auto) Eos # (Auto) Baso # (Auto) PT INR APTT Sodium Potassium Chloride Carbon Dioxide Anion Gap BUN Creatinine Est GFR ( Amer) Est GFR (Non-Af Amer) POC Glucose (mg/dL) 115 H 161 H 152 H Random Glucose Calcium Magnesium Total Bilirubin AST ALT Alkaline Phosphatase Total Protein Albumin Globulin Albumin/Globulin Ratio 03/09/18 03/09/18 03/09/18 06:13 06:13 06:13 WBC 13.6 H RBC 3.51 L Hgb 10.3 L Hct 32.4 L MCV 92.3 MCH 29.4 MCHC 31.9 L RDW 15.7 H Plt Count 374 MPV 8.3 Neut % (Auto) 76.4 H Lymph % (Auto) 16.7 L [place] % (Auto) 4.5 Eos % (Auto) 2.2 Baso % (Auto) 0.2 Neut # (Auto) 10.4 H Lymph # (Auto) 2.3 [place] # (Auto) 0.6 Eos # (Auto) 0.3 Baso # (Auto) 0.0 PT 12.1 INR 1.1 APTT 28 D Sodium 137 Potassium 3.9 Chloride 101 Carbon Dioxide 27 Anion Gap 13 BUN 34 H Creatinine 0.9 Est GFR ( Amer) > 60 Est GFR (Non-Af Amer) > 60 POC Glucose (mg/dL) Random Glucose 101 Calcium 8.3 L Magnesium 1.3 L Total Bilirubin 0.8 AST 25 ALT 27 Alkaline Phosphatase 70 Total Protein 5.7 L Albumin 3.3 L Globulin 2.4 Albumin/Globulin Ratio 1.4 03/09/18 11:40 WBC RBC Hgb Hct MCV MCH MCHC RDW Plt Count MPV Neut % (Auto) Lymph % (Auto) [place] % (Auto) Eos % (Auto) Baso % (Auto) Neut # (Auto) Lymph # (Auto) [place] # (Auto) Eos # (Auto) Baso # (Auto) PT INR APTT Sodium Potassium Chloride Carbon Dioxide Anion Gap BUN Creatinine Est GFR ( Amer) Est GFR (Non-Af Amer) POC Glucose (mg/dL) 125 H Random Glucose Calcium Magnesium Total Bilirubin AST ALT Alkaline Phosphatase Total Protein Albumin Globulin Albumin/Globulin Ratio
[2018-03-09] MEDS ORDERED: Vancomycin 1 gm/NS 200 ml 1 GM/200 ML BAG IVPB STA (17:33)
--- NOTE | 2018-03-09 21:49 | CP.PCM.PN ---
Subjective - Date & Time of Evaluation Date of Evaluation: 03/09/18 Time of Evaluation: 21:48 - Subjective Subjective: Patient underwent a PEG tube today. No problems noted. Patient tolerated the procedure well. Currently vital signs stable. Patient is awake and responding. No chest pain. No fever noted. He denies any nausea vomiting Vital signs stable. Chest good air entry bilaterally regular heart sound noted. Abdomen nontender. Edema noted, contracted extremities. Right femoral line noted, which is removed today. Assessment and recommendation: 77-year-old female with a history of advanced dementia, admitted to the hospital with the dehydration renal failure. Currently improving. We'll start the patient feeding tomorrow. Femoral line removed On Zyvox intravenously, patient also received vancomycin 1 dose today. Repeat the blood test tomorrow. The patient's clinical stable, tolerates the feeding tomorrow patient can be discharged the following day. Objective - Vital Signs/Intake and Output Vital Signs (last 24 hours): Temp Pulse Resp BP Pulse Ox 97.4 F L 83 21 121/77 100 03/09/18 16:00 03/09/18 18:00 03/09/18 16:00 03/09/18 15:05 03/09/18 16:00 Intake and Output: 03/09/18 03/10/18 18:59 06:59 Intake Total 1100 50 Output Total 750 Balance 350 50 - Medications Medications: Current Medications Aspirin (Aspirin Chewable) 81 mg PO DAILY [facility] Last Admin: 03/09/18 09:29 Dose: Not Given Famotidine (Pepcid) 20 mg PO DAILY [facility] Last Admin: 03/09/18 09:29 Dose: Not Given Heparin Sodium (Porcine) (Heparin) 5,000 units SC Q12 [facility] Last Admin: 03/09/18 09:29 Dose: Not Given Hydralazine HCl (Apresoline) 25 mg PO BID [facility] Last Admin: 03/09/18 17:01 Dose: Not Given Linezolid (Zyvox 600mg/300ml D5w) 600 mg in 300 mls @ 200 mls/hr IVPB Q12 [facility] PRN Reason: Protocol Last Admin: 03/09/18 10:11 Dose: 200 mls/hr Dextrose (Dextrose 10% In Water) 1,000 mls @ 50 mls/hr IV .Q20H [facility] Last Admin: 03/09/18 15:49 Dose: 50 mls/hr - Labs Labs: 03/09/18 06:13 03/09/18 06:13 PT 12.1 SECONDS (9.7-12.2) 03/09/18 06:13 INR 1.1 03/09/18 06:13 APTT 28 SECONDS (21-34) D 03/09/18 06:13
[2018-03-10 06:20] LABS: BASO % 0.3 % (0.0-2.0); EOS # 0.3 K/uL (0.0-0.7); EOS % 1.7 % (0.0-4.0); HEMOGLOBIN 11.6 g/dL (11.0-16.0); LYMPH # 1.7 K/uL (1.0-4.3); LYMPH % 10.9 % (20.0-40.0); MEAN CELL VOLUME 92.8 fL (81.0-99.0); MEAN CORPUSCULAR HEMOGLOBIN 29.8 pg (27.0-31.0); MEAN CORPUSCULAR HGB CONC 32.1 g/dL (33.0-37.0); MONO # 0.6 K/uL (0.0-0.8); MONO % 3.8 % (0.0-10.0); NEUT # 12.7 K/uL (1.8-7.0); NEUT % 83.3 % (50.0-75.0); NRBC % 0.1 % (0.0-2.0); RBC 3.89 Mil/uL (3.80-5.20); RED CELL DISTRIBUTION WIDTH 15.6 % (11.5-14.5); WHITE BLOOD COUNT 15.3 K/uL (4.8-10.8)
[2018-03-10 07:04] LABS: ALB/GLOB RATIO 1.4 (1.0-2.1); ALBUMIN 3.7 g/dL (3.5-5.0); ALT/SGPT 17 U/L (9-52); AST/SGOT 33 U/L (14-36); BLOOD UREA NITROGEN 25 mg/dL (7-17); CALCIUM 8.9 mg/dl (8.6-10.4); GFR AFRICAN-AMERICAN > 60; GFR NON-AFRICAN AMERICAN > 60
--- NOTE | 2018-03-10 08:43 | CP.PCM.PN ---
Subjective - Date & Time of Evaluation Date of Evaluation: 03/10/18 Time of Evaluation: 08:41 - Subjective Subjective: alert, nonverbal UO adequate HERRERA resolved lytes aceptable tolerating PEG feeds well maintained on IV fluids as well Objective - Vital Signs/Intake and Output Vital Signs (last 24 hours): Temp Pulse Resp BP Pulse Ox 98 F 116 H 18 124/83 96 03/10/18 04:00 03/10/18 04:00 03/10/18 04:00 03/10/18 04:00 03/10/18 04:00 Intake and Output: 03/10/18 03/10/18 06:59 18:59 Intake Total 50 Balance 50 - Medications Medications: Current Medications Aspirin (Aspirin Chewable) 81 mg PO DAILY [facility] Last Admin: 03/09/18 09:29 Dose: Not Given Famotidine (Pepcid) 20 mg PO DAILY [facility] Last Admin: 03/09/18 09:29 Dose: Not Given Heparin Sodium (Porcine) (Heparin) 5,000 units SC Q12 [facility] Last Admin: 03/09/18 22:00 Dose: Not Given Hydralazine HCl (Apresoline) 25 mg PO BID [facility] Last Admin: 03/09/18 17:01 Dose: Not Given Linezolid (Zyvox 600mg/300ml D5w) 600 mg in 300 mls @ 200 mls/hr IVPB Q12 [facility] PRN Reason: Protocol Last Admin: 03/09/18 21:45 Dose: 200 mls/hr Dextrose (Dextrose 10% In Water) 1,000 mls @ 50 mls/hr IV .Q20H [facility] Last Admin: 03/09/18 15:49 Dose: 50 mls/hr - Labs Labs: 03/10/18 06:11 03/10/18 06:11 PT 12.1 SECONDS (9.7-12.2) 03/09/18 06:13 INR 1.1 03/09/18 06:13 APTT 28 SECONDS (21-34) D 03/09/18 06:13 - Constitutional Appears: Confused, Chronically Ill - Head Exam Head Exam: ATRAUMATIC, NORMAL INSPECTION - Eye Exam Eye Exam: EOMI, Normal appearance - Neck Exam Neck Exam: Normal Inspection. absent: Tenderness - Respiratory Exam Respiratory Exam: Clear to Ausculation Bilateral, NORMAL BREATHING PATTERN - Cardiovascular Exam Cardiovascular Exam: REGULAR RHYTHM, +S1 - GI/Abdominal Exam GI & Abdominal Exam: Soft. absent: Tenderness - Extremities Exam Extremities Exam: Normal Inspection. absent: Tenderness - Neurological Exam Neurological Exam: Alert, CN II-XII Intact - Skin Skin Exam: Dry, Warm Assessment and Plan (1) HERRERA (acute kidney injury) Status: Acute (2) Hypernatremia Status: Resolved (3) Severe dehydration Status: Resolved - Assessment and Plan (Free Text) Plan: Doing better adequate hydration now monitor lytes periodically
[2018-03-10] MEDS: Linezolid 600 mg in D5W 300 ml 600 MG/300 ML BAG IVPB SCH ×2 (09:39→21:39)
--- NOTE | 2018-03-10 11:27 | CP.PCM.PN ---
Subjective - Date & Time of Evaluation Date of Evaluation: 03/10/18 Time of Evaluation: 11:24 - Subjective Subjective: FOLLOW UP DYSPHAGIA, ANEMIA No report of RB, melena, BETANCOURT, cough, juany,or, hematuria, hemoptysis PT is in CCU. Pt seen with RN Objective - Vital Signs/Intake and Output Vital Signs (last 24 hours): Temp Pulse Resp BP Pulse Ox 98 F 116 H 18 124/83 96 03/10/18 04:00 03/10/18 04:00 03/10/18 04:00 03/10/18 04:00 03/10/18 04:00 Intake and Output: 03/10/18 03/10/18 06:59 18:59 Intake Total 50 Balance 50 - Medications Medications: Current Medications Aspirin (Aspirin Chewable) 81 mg PO DAILY [facility] Last Admin: 03/10/18 09:23 Dose: 81 mg Famotidine (Pepcid) 20 mg PO DAILY [facility] Last Admin: 03/10/18 09:23 Dose: 20 mg Heparin Sodium (Porcine) (Heparin) 5,000 units SC Q12 [facility] Last Admin: 03/10/18 09:22 Dose: 5,000 units Hydralazine HCl (Apresoline) 25 mg PO BID [facility] Last Admin: 03/10/18 10:05 Dose: Not Given Linezolid (Zyvox 600mg/300ml D5w) 600 mg in 300 mls @ 200 mls/hr IVPB Q12 [facility] PRN Reason: Protocol Last Admin: 03/10/18 09:39 Dose: 200 mls/hr Dextrose (Dextrose 10% In Water) 1,000 mls @ 50 mls/hr IV .Q20H [facility] Last Admin: 03/09/18 15:49 Dose: 50 mls/hr - Labs Labs: 03/10/18 06:11 03/10/18 06:11 PT 12.1 SECONDS (9.7-12.2) 03/09/18 06:13 INR 1.1 03/09/18 06:13 APTT 28 SECONDS (21-34) D 03/09/18 06:13 - Constitutional Appears: Non-toxic - Respiratory Exam Respiratory Exam: Clear to Ausculation Bilateral - Cardiovascular Exam Cardiovascular Exam: RRR - GI/Abdominal Exam GI & Abdominal Exam: Soft, Normal Bowel Sounds Additional comments: PEG site= clear - Neurological Exam Neurological Exam: Awake. absent: Oriented x3 Assessment and Plan (1) Anemia Assessment & Plan: chron Status: Acute (2) Dysphagia Assessment & Plan: s/p PEG Status: Acute (3) HERRERA (acute kidney injury) Status: Acute (4) Dementia Status: Acute (5) Hypernatremia Status: Resolved (6) UTI (urinary tract infection) with pyuria Status: Acute (7) Hiatal hernia Status: Acute
--- NOTE | 2018-03-10 19:49 | CP.PCM.PN ---
Subjective - Date & Time of Evaluation Date of Evaluation: 03/10/18 Time of Evaluation: 19:49 - Subjective Subjective: AFEBRILE S/P PEG 03/09/18 PT. LETHARGIC AND WEAK BLOOD CULTURES 1:2 SETS REPORTED GRAM-POSITIVE COCCI IN CLUSTERS- P IDENTIFICATION. REPEAT URINE CULTURES -VE GROWTH URINE CULTURES +VE VRE. PT ON IV ZYVOX 600 MG EVERY 12 HOURLY. RENAL FUNCTIONS IMPROVING. CASE DISCUSSED WITH THE STAFF Objective - Vital Signs/Intake and Output Vital Signs (last 24 hours): Temp Pulse Resp BP Pulse Ox 97.8 F 88 18 124/83 99 03/10/18 16:00 03/10/18 18:00 03/10/18 04:00 03/10/18 04:00 03/10/18 16:00 Intake and Output: 03/10/18 03/11/18 18:59 06:59 Intake Total 700 Output Total 300 Balance 400 - Medications Medications: Current Medications Aspirin (Aspirin Chewable) 81 mg PO DAILY [facility] Last Admin: 03/10/18 09:23 Dose: 81 mg Famotidine (Pepcid) 20 mg PO DAILY [facility] Last Admin: 03/10/18 09:23 Dose: 20 mg Heparin Sodium (Porcine) (Heparin) 5,000 units SC Q12 [facility] Last Admin: 03/10/18 09:22 Dose: 5,000 units Hydralazine HCl (Apresoline) 25 mg PO BID [facility] Last Admin: 03/10/18 17:32 Dose: Not Given Linezolid (Zyvox 600mg/300ml D5w) 600 mg in 300 mls @ 200 mls/hr IVPB Q12 [facility] PRN Reason: Protocol Last Admin: 03/10/18 09:39 Dose: 200 mls/hr - Labs Labs: 03/10/18 06:11 03/10/18 06:11 PT 12.1 SECONDS (9.7-12.2) 03/09/18 06:13 INR 1.1 03/09/18 06:13 APTT 28 SECONDS (21-34) D 03/09/18 06:13 - Head Exam Head Exam: NORMAL INSPECTION - Eye Exam Eye Exam: PERRL - ENT Exam ENT Exam: Normal Oropharynx - Respiratory Exam Respiratory Exam: Decreased Breath Sounds - Cardiovascular Exam Cardiovascular Exam: REGULAR RHYTHM, +S1, +S2 - GI/Abdominal Exam GI & Abdominal Exam: Soft, Normal Bowel Sounds - Extremities Exam Extremities Exam: Normal Capillary Refill. absent: Calf Tenderness, Pedal Edema - Psychiatric Exam Psychiatric exam: Flat Affect - Skin Skin Exam: Dry Assessment and Plan (1) Sepsis associated hypotension Assessment & Plan: BLOOD CULTURES 1:2 SETS -GRAM-POSITIVE COCCI IN CLUSTERS--PENDING IDENTIFICATION URINE CULTURE +VE VRE. CONTINUE iv zYVOX 600 MG EVERY 12 HOURLY FOR VRE. 03/08/18 DAY 2 STRICT CONTACT PRECAUTIONS. fOLLOW-UP BLOOD CULTURE TO ADJUST ANTIBIOTICS. IF NEGATIVE or staph coagulase negative ,May DC contact isolation. Status: Acute (2) UTI (urinary tract infection) with pyuria Assessment & Plan: URINE CULTURE +VE VRE. REPEAT URINE CULTURE -VE GROWTH. fOLLOW-UP BLOOD CULTURES- IF NEGATIVE CAN DC CONTACT ISOLATION. PATIENT PRESENTLY ON iv zYVOX 600 MG EVERY 12 HOURLY 03/08/18 Status: Acute (3) HERRERA (acute kidney injury) Status: Acute (4) Hypernatremia Status: Resolved (5) Renal insufficiency Status: Acute (6) Severe dehydration Assessment & Plan: IMPROVING RENAL FUNCTIONS. Status: Resolved (7) Dementia Status: Acute
--- NOTE | 2018-03-11 00:31 | CP.PCM.PN ---
Subjective - Date & Time of Evaluation Date of Evaluation: 03/10/18 Time of Evaluation: 08:43 - Subjective Subjective: Patient is responding and awake. But she is nonverbal sometimes. Approximately contracted Tolerating the PEG feeding today. No chest pain. Respiration is stable Vital signs noted Assessment and recommendation: 77-year-old female with advanced dementia, dysphagia malnourishment acute renal failure UTI. Will continue the PEG feeding. Awaiting for cultures again. Will follow-up the patient Objective - Vital Signs/Intake and Output Vital Signs (last 24 hours): Temp Pulse Resp BP Pulse Ox 97.1 F L 85 21 155/90 H 100 03/11/18 00:00 03/11/18 00:23 03/11/18 00:00 03/11/18 00:00 03/11/18 00:00 Intake and Output: 03/10/18 03/11/18 18:59 06:59 Intake Total 700 Output Total 300 Balance 400 - Medications Medications: Current Medications Aspirin (Aspirin Chewable) 81 mg PO DAILY [facility] Last Admin: 03/10/18 09:23 Dose: 81 mg Famotidine (Pepcid) 20 mg PO DAILY [facility] Last Admin: 03/10/18 09:23 Dose: 20 mg Heparin Sodium (Porcine) (Heparin) 5,000 units SC Q12 [facility] Last Admin: 03/10/18 21:39 Dose: 5,000 units Hydralazine HCl (Apresoline) 25 mg PO BID [facility] Last Admin: 03/10/18 17:32 Dose: Not Given Linezolid (Zyvox 600mg/300ml D5w) 600 mg in 300 mls @ 200 mls/hr IVPB Q12 [facility] PRN Reason: Protocol Last Admin: 03/10/18 21:39 Dose: 200 mls/hr - Labs Labs: 03/10/18 06:11 03/10/18 06:11 PT 12.1 SECONDS (9.7-12.2) 03/09/18 06:13 INR 1.1 03/09/18 06:13 APTT 28 SECONDS (21-34) D 03/09/18 06:13
[2018-03-11 06:34] VITALS: RESP 20
[2018-03-11] MEDS: Linezolid 600 mg in D5W 300 ml 600 MG/300 ML BAG IVPB SCH ×2 (11:00→22:53)
--- NOTE | 2018-03-11 12:34 | CP.PCM.PN ---
Subjective - Date & Time of Evaluation Date of Evaluation: 03/11/18 Time of Evaluation: 12:31 - Subjective Subjective: No reported issues with Gastrostomy Tolerating feeds Recommend increase feeding rate as tolerated Objective - Vital Signs/Intake and Output Vital Signs (last 24 hours): Temp Pulse Resp BP Pulse Ox 97.8 F 101 H 20 150/81 96 03/11/18 08:04 03/11/18 08:04 03/11/18 08:04 03/11/18 08:04 03/11/18 08:04 Intake and Output: 03/11/18 03/11/18 06:59 18:59 Intake Total 760 Output Total 1000 Balance -240 - Medications Medications: Current Medications Aspirin (Aspirin Chewable) 81 mg PO DAILY [facility] Last Admin: 03/11/18 10:11 Dose: 81 mg Famotidine (Pepcid) 20 mg PO DAILY [facility] Last Admin: 03/11/18 10:11 Dose: 20 mg Heparin Sodium (Porcine) (Heparin) 5,000 units SC Q12 [facility] Last Admin: 03/11/18 10:11 Dose: 5,000 units Hydralazine HCl (Apresoline) 25 mg PO BID [facility] Last Admin: 03/11/18 10:11 Dose: 25 mg Linezolid (Zyvox 600mg/300ml D5w) 600 mg in 300 mls @ 200 mls/hr IVPB Q12 [facility] PRN Reason: Protocol Last Admin: 03/11/18 11:00 Dose: 200 mls/hr - Labs Labs: 03/10/18 06:11 03/10/18 06:11 PT 12.1 SECONDS (9.7-12.2) 03/09/18 06:13 INR 1.1 03/09/18 06:13 APTT 28 SECONDS (21-34) D 03/09/18 06:13 - Constitutional Appears: Chronically Ill - Head Exam Head Exam: NORMOCEPHALIC - Respiratory Exam Respiratory Exam: NORMAL BREATHING PATTERN - GI/Abdominal Exam GI & Abdominal Exam: Soft, Normal Bowel Sounds (GT site clean, dry, intact, at 6 cm marking). absent: Tenderness Assessment and Plan (1) Dysphagia Assessment & Plan: PEG done and feeds well tolerated recommend people greeter to see and recommend type of formula and feeding rate Will sign off Status: Acute
--- NOTE | 2018-03-11 20:12 | CP.PCM.PN ---
Subjective - Date & Time of Evaluation Date of Evaluation: 03/11/18 Time of Evaluation: 20:09 - Subjective Subjective: PATIENT SEEN ON GENERAL MEDICAL FLOOR. AFEBRILE, S/P PEG. TOLERATING FEEDINGS. CLINICALLY SAME. LABS REVIEWED REPEAT BLOOD CULTURE 1:2 SETS STAPH COAGULASE-NEGATIVE ? CONTAMINANT. REPEAT URINE CULTURE-VE GROWTH TO DATE. Objective - Vital Signs/Intake and Output Vital Signs (last 24 hours): Temp Pulse Resp BP Pulse Ox 98.4 F 99 H 20 117/81 98 03/11/18 15:00 03/11/18 15:00 03/11/18 15:00 03/11/18 15:00 03/11/18 15:00 Intake and Output: 03/11/18 03/12/18 18:59 06:59 Intake Total 200 Output Total 400 Balance -200 - Medications Medications: Current Medications Aspirin (Aspirin Chewable) 81 mg PO DAILY [facility] Last Admin: 03/11/18 10:11 Dose: 81 mg Famotidine (Pepcid) 20 mg PO DAILY [facility] Last Admin: 03/11/18 10:11 Dose: 20 mg Heparin Sodium (Porcine) (Heparin) 5,000 units SC Q12 [facility] Last Admin: 03/11/18 10:11 Dose: 5,000 units Hydralazine HCl (Apresoline) 25 mg PO BID [facility] Last Admin: 03/11/18 18:24 Dose: 25 mg Linezolid (Zyvox 600mg/300ml D5w) 600 mg in 300 mls @ 200 mls/hr IVPB Q12 [facility] PRN Reason: Protocol Last Admin: 03/11/18 11:00 Dose: 200 mls/hr - Labs Labs: 03/10/18 06:11 03/10/18 06:11 PT 12.1 SECONDS (9.7-12.2) 03/09/18 06:13 INR 1.1 03/09/18 06:13 APTT 28 SECONDS (21-34) D 03/09/18 06:13 - Constitutional Appears: No Acute Distress - Head Exam Head Exam: NORMAL INSPECTION - Eye Exam Eye Exam: PERRL - ENT Exam ENT Exam: Mucous Membranes Moist - Respiratory Exam Respiratory Exam: Decreased Breath Sounds - Cardiovascular Exam Cardiovascular Exam: REGULAR RHYTHM, +S1, +S2 - GI/Abdominal Exam GI & Abdominal Exam: Soft, Normal Bowel Sounds Additional comments: peg in place - Extremities Exam Extremities Exam: Normal Capillary Refill (WE WILL), Pedal Edema. absent: Calf Tenderness - Neurological Exam Neurological Exam: Awake - Skin Skin Exam: Normal Color, Warm Assessment and Plan (1) Sepsis associated hypotension Assessment & Plan: BLOOD CULTURES 1:2 SETS -STAPH COAGULASE-NEGATIVE ? cONTAMINANT URINE CULTURE +VE VRE. CONTINUE iv zYVOX 600 MG EVERY 12 HOURLY FOR VRE. 03/08/18 DAY 3 Status: Acute (2) UTI (urinary tract infection) with pyuria Assessment & Plan: URINE CULTURE +VE VRE. REPEAT URINE CULTURE -VE GROWTH. CAN DC CONTACT ISOLATION. PATIENT PRESENTLY ON iv zYVOX 600 MG EVERY 12 HOURLY 03/08/18-DAY 3. CAN SWITCH TO BY MOUTH VIA PEG X TOTAL OF 7 DAYS WHEN TOLERATED. F/U cbc IN A.M. Status: Acute (3) HERRERA (acute kidney injury) Status: Acute (4) Hypernatremia Status: Resolved (5) Renal insufficiency Status: Acute (6) Severe dehydration Status: Resolved (7) Dementia Status: Acute
[2018-03-12 08:08] LABS: BASO # 0.1 K/uL (0.0-0.2); BASO % 0.8 % (0.0-2.0); EOS # 0.2 K/uL (0.0-0.7); EOS % 2.8 % (0.0-4.0); HEMOGLOBIN 10.9 g/dL (11.0-16.0); LYMPH # 1.4 K/uL (1.0-4.3); LYMPH % 18.2 % (20.0-40.0); MEAN CELL VOLUME 92.5 fL (81.0-99.0); MEAN CORPUSCULAR HEMOGLOBIN 30.2 pg (27.0-31.0); MEAN CORPUSCULAR HGB CONC 32.6 g/dL (33.0-37.0); MEAN PLATELET VOLUME 8.5 fL (7.2-11.7); MONO # 0.5 K/uL (0.0-0.8); MONO % 6.8 % (0.0-10.0); NEUT # 5.3 K/uL (1.8-7.0); NEUT % 71.4 % (50.0-75.0); RBC 3.61 Mil/uL (3.80-5.20); RED CELL DISTRIBUTION WIDTH 16.7 % (11.5-14.5)
[2018-03-12 08:15] LABS: WHITE BLOOD COUNT 7.5 K/uL (4.8-10.8)
[2018-03-12 08:23] LABS: BLOOD UREA NITROGEN 18 mg/dL (7-17); CALCIUM 7.9 mg/dl (8.6-10.4); GFR AFRICAN-AMERICAN > 60; GFR NON-AFRICAN AMERICAN > 60
[2018-03-12] MEDS: Linezolid 600 mg in D5W 300 ml 600 MG/300 ML BAG IVPB SCH ×2 (09:26→21:45)
--- NOTE | 2018-03-12 23:37 | CP.PCM.PN ---
Subjective - Date & Time of Evaluation Date of Evaluation: 03/12/18 Time of Evaluation: 23:37 - Subjective Subjective: AFEBRILE, S/P PEG. TOLERATING FEEDINGS. -VE SOB CLINICALLY SAME. LABS REVIEWED REPEAT BLOOD CULTURE 1:2 SETS STAPH COAGULASE-NEGATIVE ? CONTAMINANT. REPEAT URINE CULTURE-VE GROWTH TO DATE. Objective - Vital Signs/Intake and Output Vital Signs (last 24 hours): Temp Pulse Resp BP Pulse Ox 98.5 F 88 20 102/72 98 03/12/18 15:00 03/12/18 15:00 03/12/18 15:00 03/12/18 15:00 03/12/18 15:00 Intake and Output: 03/12/18 03/13/18 18:59 06:59 Intake Total 680 480 Output Total 525 120 Balance 155 360 - Medications Medications: Current Medications Aspirin (Aspirin Chewable) 81 mg PO DAILY [facility] Last Admin: 03/12/18 09:25 Dose: 81 mg Famotidine (Pepcid) 20 mg PO DAILY [facility] Last Admin: 03/12/18 09:25 Dose: 20 mg Heparin Sodium (Porcine) (Heparin) 5,000 units SC Q12 [facility] Last Admin: 03/12/18 21:48 Dose: 5,000 units Hydralazine HCl (Apresoline) 25 mg PO BID [facility] Last Admin: 03/12/18 17:12 Dose: 25 mg Linezolid (Zyvox 600mg/300ml D5w) 600 mg in 300 mls @ 200 mls/hr IVPB Q12 [facility] PRN Reason: Protocol Last Admin: 03/12/18 21:45 Dose: 200 mls/hr - Labs Labs: 03/12/18 07:56 03/12/18 07:56 PT 12.1 SECONDS (9.7-12.2) 03/09/18 06:13 INR 1.1 03/09/18 06:13 APTT 28 SECONDS (21-34) D 03/09/18 06:13 - Constitutional Appears: No Acute Distress - Head Exam Head Exam: NORMAL INSPECTION - Eye Exam Eye Exam: EOMI, PERRL - ENT Exam ENT Exam: Mucous Membranes Dry, Normal Oropharynx - Neck Exam Neck Exam: Normal Inspection - Respiratory Exam Respiratory Exam: Prolonged Expiratory Phase, NORMAL BREATHING PATTERN - Cardiovascular Exam Cardiovascular Exam: REGULAR RHYTHM, +S1, +S2 - GI/Abdominal Exam GI & Abdominal Exam: Soft, Normal Bowel Sounds Additional comments: PEG IN PLACE - Extremities Exam Extremities Exam: Pedal Edema. absent: Calf Tenderness - Neurological Exam Neurological Exam: Awake, Oriented x3 - Psychiatric Exam Psychiatric exam: Normal Mood - Skin Skin Exam: Warm Assessment and Plan (1) Sepsis associated hypotension Assessment & Plan: BLOOD CULTURES 1:2 SETS -STAPH COAGULASE-NEGATIVE ? CONTAMINANT URINE CULTURE REPEAT -VE CONTINUE iv zYVOX 600 MG EVERY 12 HOURLY FOR VRE. 03/08/18 DAY 4 FOR TOTAL OF 7 DAYS. Status: Acute (2) UTI (urinary tract infection) with pyuria Assessment & Plan: REPEAT URINE CULTURE -VE GROWTH. CAN DC CONTACT ISOLATION. PATIENT PRESENTLY ON iv zYVOX 600 MG EVERY 12 HOURLY 03/08/18-DAY 4. CAN SWITCH TO BY MOUTH VIA PEG X TOTAL OF 7 DAYS WHEN TOLERATED. F/U cbc IN A.M. Status: Acute (3) HERRERA (acute kidney injury) Status: Acute (4) Hypernatremia Status: Resolved (5) Renal insufficiency Status: Acute (6) Severe dehydration Status: Resolved (7) Dementia Status: Acute
[2018-03-13] MEDS: Linezolid 600 mg in D5W 300 ml 600 MG/300 ML BAG IVPB SCH ×2 (11:16→22:04)
--- NOTE | 2018-03-14 08:42 | CP.PCM.PN ---
Subjective - Date & Time of Evaluation Date of Evaluation: 03/12/18 Time of Evaluation: 08:45 - Subjective Subjective: Patient is stable clinically. She is opening her eyes with the commands. Tolerating the feeding Stage I decubiti On examination: Vital signs stable. Chest bilateral good air entry. No edema. Regular heart sound. Assessment and recommendation: 77-year-old female with a history of advanced dementia, dysphagia, status post a PEG. UTI. On antibiotic. Possible discharge plan to rehabilitation once the medically stable. Objective - Vital Signs/Intake and Output Vital Signs (last 24 hours): Temp Pulse Resp BP Pulse Ox 98.4 F 88 20 116/78 95 03/14/18 07:34 03/14/18 07:34 03/14/18 07:34 03/14/18 07:34 03/14/18 07:34 Intake and Output: 03/14/18 03/14/18 06:59 18:59 Intake Total 820 Output Total 850 Balance -30 - Medications Medications: Current Medications Aspirin (Aspirin Chewable) 81 mg PO DAILY [facility] Last Admin: 03/13/18 11:16 Dose: 81 mg Famotidine (Pepcid) 20 mg PO DAILY [facility] Last Admin: 03/13/18 11:15 Dose: 20 mg Heparin Sodium (Porcine) (Heparin) 5,000 units SC Q12 [facility] Last Admin: 03/13/18 22:04 Dose: 5,000 units Hydralazine HCl (Apresoline) 25 mg PO BID [facility] Last Admin: 03/13/18 18:27 Dose: 25 mg Linezolid (Zyvox 600mg/300ml D5w) 600 mg in 300 mls @ 200 mls/hr IVPB Q12 [facility] PRN Reason: Protocol Last Admin: 03/13/18 22:04 Dose: 200 mls/hr - Labs Labs: 03/12/18 07:56 03/12/18 07:56 PT 12.1 SECONDS (9.7-12.2) 03/09/18 06:13 INR 1.1 03/09/18 06:13 APTT 28 SECONDS (21-34) D 03/09/18 06:13
--- NOTE | 2018-03-14 08:42 | CP.PCM.PN ---
Subjective - Date & Time of Evaluation Date of Evaluation: 03/11/18 Time of Evaluation: 08:45 - Subjective Subjective: Patient is responding and awake. But she is nonverbal sometimes. Approximately contracted Tolerating the PEG feeding today. No chest pain. Respiration is stable Vital signs noted Assessment and recommendation: 77-year-old female with advanced dementia, dysphagia malnourishment acute renal failure UTI. Will continue the PEG feeding. Infectious disease follow-up for positive blood culture. Objective - Vital Signs/Intake and Output Vital Signs (last 24 hours): Temp Pulse Resp BP Pulse Ox 98.4 F 88 20 116/78 95 03/14/18 07:34 03/14/18 07:34 03/14/18 07:34 03/14/18 07:34 03/14/18 07:34 Intake and Output: 03/14/18 03/14/18 06:59 18:59 Intake Total 820 Output Total 850 Balance -30 - Medications Medications: Current Medications Aspirin (Aspirin Chewable) 81 mg PO DAILY [facility] Last Admin: 03/13/18 11:16 Dose: 81 mg Famotidine (Pepcid) 20 mg PO DAILY [facility] Last Admin: 03/13/18 11:15 Dose: 20 mg Heparin Sodium (Porcine) (Heparin) 5,000 units SC Q12 [facility] Last Admin: 03/13/18 22:04 Dose: 5,000 units Hydralazine HCl (Apresoline) 25 mg PO BID [facility] Last Admin: 03/13/18 18:27 Dose: 25 mg Linezolid (Zyvox 600mg/300ml D5w) 600 mg in 300 mls @ 200 mls/hr IVPB Q12 [facility] PRN Reason: Protocol Last Admin: 03/13/18 22:04 Dose: 200 mls/hr - Labs Labs: 03/12/18 07:56 03/12/18 07:56 PT 12.1 SECONDS (9.7-12.2) 03/09/18 06:13 INR 1.1 03/09/18 06:13 APTT 28 SECONDS (21-34) D 03/09/18 06:13
--- NOTE | 2018-03-14 08:42 | CP.PCM.PN ---
Subjective - Date & Time of Evaluation Date of Evaluation: 03/13/18 Time of Evaluation: 08:46 - Subjective Subjective: Patient did not make any urine this morning. She was becoming anuric this morning. Sonogram was noted, and straight cath was done, 600 mL of urine drained. Clinically otherwise stable. Chest good air entry Regular heart sound Nontender abdomen Assessment and recommendation: 77-year-old female with advanced dementia, admitted with a UTI and urosepsis. Acute renal failure. Improving. Patient had a urinary retention, currently better Will follow-up Objective - Vital Signs/Intake and Output Vital Signs (last 24 hours): Temp Pulse Resp BP Pulse Ox 98.4 F 88 20 116/78 95 03/14/18 07:34 03/14/18 07:34 03/14/18 07:34 03/14/18 07:34 03/14/18 07:34 Intake and Output: 03/14/18 03/14/18 06:59 18:59 Intake Total 820 Output Total 850 Balance -30 - Medications Medications: Current Medications Aspirin (Aspirin Chewable) 81 mg PO DAILY [facility] Last Admin: 03/13/18 11:16 Dose: 81 mg Famotidine (Pepcid) 20 mg PO DAILY [facility] Last Admin: 03/13/18 11:15 Dose: 20 mg Heparin Sodium (Porcine) (Heparin) 5,000 units SC Q12 [facility] Last Admin: 03/13/18 22:04 Dose: 5,000 units Hydralazine HCl (Apresoline) 25 mg PO BID [facility] Last Admin: 03/13/18 18:27 Dose: 25 mg Linezolid (Zyvox 600mg/300ml D5w) 600 mg in 300 mls @ 200 mls/hr IVPB Q12 [facility] PRN Reason: Protocol Last Admin: 03/13/18 22:04 Dose: 200 mls/hr - Labs Labs: 03/12/18 07:56 03/12/18 07:56 PT 12.1 SECONDS (9.7-12.2) 03/09/18 06:13 INR 1.1 03/09/18 06:13 APTT 28 SECONDS (21-34) D 03/09/18 06:13
[2018-03-14] MEDS: Linezolid 600 mg in D5W 300 ml 600 MG/300 ML BAG IVPB SCH (09:29)
--- NOTE | 2018-03-14 10:30 | CP.PCM.PN ---
Subjective - Date & Time of Evaluation Date of Evaluation: 03/14/18 Time of Evaluation: 10:29 - Subjective Subjective: seen and examined events noted urinary retention-lerma placed non verbal ongoing tube feeds Objective - Vital Signs/Intake and Output Vital Signs (last 24 hours): Temp Pulse Resp BP Pulse Ox 98.4 F 88 20 116/78 95 03/14/18 07:34 03/14/18 07:34 03/14/18 07:34 03/14/18 07:34 03/14/18 07:34 Intake and Output: 03/14/18 03/14/18 06:59 18:59 Intake Total 820 Output Total 850 Balance -30 - Medications Medications: Current Medications Aspirin (Aspirin Chewable) 81 mg PO DAILY [facility] Last Admin: 03/14/18 09:29 Dose: 81 mg Famotidine (Pepcid) 20 mg PO DAILY [facility] Last Admin: 03/14/18 09:29 Dose: 20 mg Heparin Sodium (Porcine) (Heparin) 5,000 units SC Q12 [facility] Last Admin: 03/14/18 09:29 Dose: 5,000 units Hydralazine HCl (Apresoline) 25 mg PO BID [facility] Last Admin: 03/14/18 09:29 Dose: 25 mg Linezolid (Zyvox 600mg/300ml D5w) 600 mg in 300 mls @ 200 mls/hr IVPB Q12 [facility] PRN Reason: Protocol Last Admin: 03/14/18 09:29 Dose: 200 mls/hr - Labs Labs: 03/12/18 07:56 03/12/18 07:56 PT 12.1 SECONDS (9.7-12.2) 03/09/18 06:13 INR 1.1 03/09/18 06:13 APTT 28 SECONDS (21-34) D 03/09/18 06:13 - Constitutional Appears: No Acute Distress, Chronically Ill - Head Exam Head Exam: NORMAL INSPECTION, NORMOCEPHALIC - Eye Exam Eye Exam: Normal appearance, PERRL - ENT Exam ENT Exam: Mucous Membranes Dry, Normal Exam - Neck Exam Neck Exam: Normal Inspection - Respiratory Exam Respiratory Exam: Decreased Breath Sounds, NORMAL BREATHING PATTERN - Cardiovascular Exam Cardiovascular Exam: REGULAR RHYTHM, RRR - GI/Abdominal Exam GI & Abdominal Exam: Distended, Soft - Extremities Exam Extremities Exam: Normal Inspection (contractures upper ext) - Neurological Exam Neurological Exam: Awake. absent: Alert - Skin Skin Exam: Dry, Warm Assessment and Plan (1) HERRERA (acute kidney injury) Status: Acute (2) Dysphagia Status: Acute (3) UTI (urinary tract infection) with pyuria Status: Acute (4) Severe dehydration Status: Resolved - Assessment and Plan (Free Text) Assessment: maintain lerma labs ordered for tomorrow
--- NOTE | 2018-03-14 11:17 | CP.PCM.PN ---
Subjective - Date & Time of Evaluation Date of Evaluation: 03/14/18 Time of Evaluation: 11:17 - Subjective Subjective: AFEBRILE, S/P PEG. TOLERATING FEEDINGS. -VE SOB CLINICALLY SAME. LABS REVIEWED REPEAT BLOOD CULTURE 1:2 SETS STAPH COAGULASE-NEGATIVE ? CONTAMINANT. REPEAT URINE CULTURE-VE GROWTH TO DATE. CASE DISCUSSED WITH MISSILE TECHNICIAN . PATIENT TO CONTINUE PO ZYVOX 600 MG VIA PEG TWICE A DAY X 3DAYS MORE ON DISCHARGE. Objective - Vital Signs/Intake and Output Vital Signs (last 24 hours): Temp Pulse Resp BP Pulse Ox 98.4 F 88 20 116/78 95 03/14/18 07:34 03/14/18 07:34 03/14/18 07:34 03/14/18 07:34 03/14/18 07:34 Intake and Output: 03/14/18 03/14/18 06:59 18:59 Intake Total 820 Output Total 850 Balance -30 - Medications Medications: Current Medications Aspirin (Aspirin Chewable) 81 mg PO DAILY [facility] Last Admin: 03/14/18 09:29 Dose: 81 mg Famotidine (Pepcid) 20 mg PO DAILY [facility] Last Admin: 03/14/18 09:29 Dose: 20 mg Heparin Sodium (Porcine) (Heparin) 5,000 units SC Q12 [facility] Last Admin: 03/14/18 09:29 Dose: 5,000 units Hydralazine HCl (Apresoline) 25 mg PO BID [facility] Last Admin: 03/14/18 09:29 Dose: 25 mg Linezolid (Zyvox 600mg/300ml D5w) 600 mg in 300 mls @ 200 mls/hr IVPB Q12 [facility] PRN Reason: Protocol Last Admin: 03/14/18 09:29 Dose: 200 mls/hr - Labs Labs: 03/12/18 07:56 03/12/18 07:56 PT 12.1 SECONDS (9.7-12.2) 03/09/18 06:13 INR 1.1 03/09/18 06:13 APTT 28 SECONDS (21-34) D 03/09/18 06:13 - Constitutional Appears: No Acute Distress - Head Exam Head Exam: NORMAL INSPECTION - Eye Exam Eye Exam: PERRL - ENT Exam ENT Exam: Mucous Membranes Moist - Respiratory Exam Respiratory Exam: Clear to Ausculation Bilateral, NORMAL BREATHING PATTERN - Cardiovascular Exam Cardiovascular Exam: REGULAR RHYTHM, +S1, +S2 - GI/Abdominal Exam GI & Abdominal Exam: Soft, Normal Bowel Sounds (PEG IN PLACE) - Extremities Exam Extremities Exam: Pedal Edema. absent: Calf Tenderness - Neurological Exam Neurological Exam: Awake - Psychiatric Exam Psychiatric exam: Flat Affect - Skin Skin Exam: Dry, Warm Assessment and Plan (1) Sepsis associated hypotension Status: Acute (2) UTI (urinary tract infection) with pyuria Assessment & Plan: URINE CULTURE POSITIVE FOR VRE. REPEAT URINE CULTURES NEGATIVE. aNTIBIOTICS DISCUSSEDWITH MISSILE TECHNICIAN MS PACHECO. ZYVOX 600 TWICE A DAY VIA GT X 3DAYS MORE ON DISCHARGE. Status: Acute (3) HERRERA (acute kidney injury) Assessment & Plan: IMPROVED bun AND CREATININE NORMAL 03/12/18. Status: Acute (4) Renal insufficiency Status: Acute (5) Dementia Status: Acute
[2018-03-14] MEDS ORDERED: Pneumococcal 23-Valent Vaccine IM ONE (13:50)
[2018-03-14 16:01] VITALS: BP 151/96; PULSE 94; TEMP 97.5; O2SAT 99
--- NOTE | 2018-03-14 17:13 | CP.PCM.PN ---
Subjective - Date & Time of Evaluation Date of Evaluation: 03/14/18 Time of Evaluation: 11:00 - Subjective Subjective: Awake, alert, no acute distress. Objective - Vital Signs/Intake and Output Vital Signs (last 24 hours): Temp Pulse Resp BP Pulse Ox 97.5 F L 94 H 20 151/96 H 99 03/14/18 15:00 03/14/18 15:00 03/14/18 15:00 03/14/18 15:00 03/14/18 15:00 Intake and Output: 03/14/18 03/14/18 06:59 18:59 Intake Total 820 600 Output Total 850 550 Balance -30 50 - Medications Medications: Current Medications Aspirin (Aspirin Chewable) 81 mg PO DAILY [facility] Last Admin: 03/14/18 09:29 Dose: 81 mg Famotidine (Pepcid) 20 mg PO DAILY [facility] Last Admin: 03/14/18 09:29 Dose: 20 mg Heparin Sodium (Porcine) (Heparin) 5,000 units SC Q12 [facility] Last Admin: 03/14/18 09:29 Dose: 5,000 units Hydralazine HCl (Apresoline) 25 mg PO BID [facility] Last Admin: 03/14/18 09:29 Dose: 25 mg Linezolid (Zyvox 600mg/300ml D5w) 600 mg in 300 mls @ 200 mls/hr IVPB Q12 [facility] PRN Reason: Protocol Last Admin: 03/14/18 09:29 Dose: 200 mls/hr - Labs Labs: 03/12/18 07:56 03/12/18 07:56 PT 12.1 SECONDS (9.7-12.2) 03/09/18 06:13 INR 1.1 03/09/18 06:13 APTT 28 SECONDS (21-34) D 03/09/18 06:13 Assessment and Plan - Assessment and Plan (Free Text) Assessment: Patient admitted from long-term with dehydration, hypernatremia, s/p PEG placement, seen and examined. Awake, responsive, remains weak, NAD. Tolerating feeding via PEG. Discussed with DR Reyes, plan to discharge back to the long-term today. No acute distress noted.
== END 2018-03-14 22:15 | DRG 872 ==
LOC: C.ER 21:26 → C.9E 23:42 → C.6T 03-04 00:51 → C.9I 03-04 08:05 → C.3T 03-11 05:18
PROVIDERS: ADMIT Internal Medicine; ATTEND Internal Medicine
PROC: 05HM33Z Insertion of Infusion Device into Right Internal Jugular Vein, Percutaneous Approach (ICD-10-PCS; 2018-03-05)
PROC: 04HK33Z Insertion of Infusion Device into Right Femoral Artery, Percutaneous Approach (ICD-10-PCS; 2018-03-05)
PROC: 3E0G76Z Introduction of Nutritional Substance into Upper GI, Via Natural or Artificial Opening (ICD-10-PCS; 2018-03-06)
PROC: 0DH68UZ Insertion of Feeding Device into Stomach, Via Natural or Artificial Opening Endoscopic (ICD-10-PCS; principal; 2018-03-09 14:10)
DX: A41.9 Sepsis, unspecified organism (principal); E87.0 Hyperosmolality and hypernatremia; N17.9 Acute kidney failure, unspecified; L89.153 Pressure ulcer of sacral region, stage 3; E46 Unspecified protein-calorie malnutrition; N39.0 Urinary tract infection, site not specified; E86.0 Dehydration; B95.2 Enterococcus as the cause of diseases classified elsewhere; D64.9 Anemia, unspecified; F03.90 Unspecified dementia, unspecified severity, without behavioral disturbance, psychotic disturbance, mood disturbance, and anxiety; I12.9 Hypertensive chronic kidney disease with stage 1 through stage 4 chronic kidney disease, or unspecified chronic kidney disease; L89.322 Pressure ulcer of left buttock, stage 2; L89.312 Pressure ulcer of right buttock, stage 2; L89.151 Pressure ulcer of sacral region, stage 1; N18.9 Chronic kidney disease, unspecified; K29.00 Acute gastritis without bleeding; K44.9 Diaphragmatic hernia without obstruction or gangrene; Z16.21 Resistance to vancomycin; K29.50 Unspecified chronic gastritis without bleeding; I69.320 Aphasia following cerebral infarction; Z74.01 Bed confinement status; Z91.81 History of falling; Z88.0 Allergy status to penicillin

== ENCOUNTER 2018-10-13 15:35 | Inpatient (IN) | payer MEDICARE, OTHER | END 2018-10-21 11:45 | LOC: C.ER 15:35 → C.9I 18:11 ==

== ENCOUNTER 2018-10-31 01:27 | Inpatient (IN) | payer MEDICARE, OTHER ==
--- NOTE | 2018-10-31 01:42 | C.PDOC ---
History Of Present Illness 77 year old female with PMHx of dementia is [facility] evaluation of SOB. Patient unable to provide any history due to her dementia. Time Seen by Provider: 10/31/18 01:41 History Per: Other History/Exam Limitations: clinical condition Onset/Duration Of Symptoms: Days Current Symptoms Are (Timing): Still Present Recent travel outside of the [place]: No Additional History Per: Prison Past Medical History Reviewed: Historical Data, Nursing Documentation, Vital Signs - Medical History PMH: Dementia, HTN, Chronic Kidney Disease Denies: Deep Vein Thrombosis Surgical History: No Surg Hx Denies: Pacemaker - [facility] Procedures ASSISTANCE WITH RESPIRATORY VENTILATION, >96 HRS, CPAP (10/13/18) INSERT INFUSION DEV IN R INT JUGULAR VEIN, PERC (03/03/18) INSERTION OF FEEDING DEVICE INTO STOMACH, ENDO (03/03/18) INSERTION OF INFUSION DEV INTO R SUBCLAV VEIN, PERC APPROACH (10/13/18) INSERTION OF INFUSION DEVICE INTO R FEM ART, PERC APPROACH (03/03/18) INTRODUCTION OF NUTRITIONAL INTO UP GI, VIA OPENING (03/03/18) Family History: States: Unknown Family Hx - Social History Hx Alcohol Use: No Hx Substance Use: No - Immunization History Hx Tetanus Toxoid Vaccination: No Hx Influenza Vaccination: No Hx Pneumococcal Vaccination: No Review Of Systems Review Of Systems: ROS cannot be obtained secondary to pt's inabilty to answer questions. Physical Exam - Physical Exam Appears: Non-toxic, No Acute Distress Skin: Warm, Dry Head: Normacephalic Eye(s): bilateral: Normal Inspection Oral Mucosa: Moist Neck: Supple Chest: Symmetrical Cardiovascular: Rhythm Regular Respiratory: No Rales, Rhonchi (scattered), Wheezing (few) Gastrointestinal/Abdominal: Soft, No Tenderness, No Guarding, No Rebound, Other (obese) Extremity: Bilateral: Atraumatic, Normal Color And Temperature, Normal ROM, Other (upper and lower slightly contracted) Neurological/Psych: No Oriented x3 (AOx1), Other (follows some command) Gait: Unable To Assess ED Course And Treatment - Laboratory Results Result Diagrams: 10/31/18 02:12 10/31/18 02:12 ECG: Interpreted By Me, Viewed By Me ECG Rhythm: Sinus Rhythm (81), Nonspecific Changes (unchnaged from 10/27/18) Pulse Ox Interpretation: Normal - Radiology CXR: Interpreted by Me, Viewed By Me CXR Interpretation: Yes: Other (poor inspiraatory effort, implantable loop r ecorder left chest , improved from previous). No: Infiltrates, Fracture, Cardiomegaly - CT Scan/US CT head Other Rad Studies (CT/US): Read By Radiologist, Radiology Report Reviewed CT/US Interpretation: CT scan of the head. CLINICAL HISTORY: Change in mental status. TECHNIQUE: Multiple axial CT images were obtained through the brain without IV contrast material. COMMENTS: There is normal configuration of sella turcica. There are no intra or extra-axial collections. There is no mass effect or midline shift. There is no evidence of hematoma formation. No hydrocephalus is present. The ventricles are symmetrical. No abnormal calcifications are present. There is diffuse age-appropriate cerebellar and cerebral atrophy with proportionally dilated ventricles and cortical sulci. There are bilateral periventricular and subcortical white matter hypolucencies compatible with mild chronic microvascular disease. Otherwise, no significant focal abnormalities are seen either in the posterior fossa or supratentorial compartment. IMPRESSION: 1. Age-appropriate cerebellar and cerebral atrophy. 2. Mild chronic microvascular disease. 3. No evidence of acute intracranial pathology. Thank you for your kind referral of this patient. . Electronically signed on Oct 31, 2018 3:45:12 AM EST by: Lesly Tello M.D., Certified by STEVE DARLING, Neuroradiology Progress Note: Plan: - VBG. - CT head. - EKG. - Labs. - CXR. - IV fluids. - Blood culture. - UA Critical Care Time - Critical Care Note Total Time (in mins): 30 Documented critical care: time excludes all time spent performing seperately billable procedures. Disposition Discussed With DrLes: Josie Reyes Comment: accepted the pt on his service and took over the care at 4:30AM Doctor Will See Patient In The: Hospital Counseled Patient/Family Regarding: Studies Performed, Diagnosis - Disposition Disposition: HOSPITALIZED Disposition Time: 01:42 Condition: GUARDED - POA Present On Arrival: Poor Glycemic Control - Clinical Impression Clinical Impression: Dementia, Hypercarbia, UTI (urinary tract infection) - Scribe Statement The provider has reviewed the documentation as recorded by the Scribe Hugh Lara All medical record entries made by the Scribe were at my direction and personally dictated by me. I have reviewed the chart and agree that the record accurately reflects my personal performance of the history, physical exam, medical decision making, and the department course for this patient. I have also personally directed, reviewed, and agree with the discharge instructions and disposition. Decision To Admit - Pt Status Changed To: Hospital Disposition Of: Inpatient - Admit Certification Admit to Inpatient:: After my assessment, the patient will require hospitalization for at least two midnights. This is because of the severity of symptoms shown, intensity of services needed, and/or the medical risk in this patient being treated as an outpatient. - InPatient: Physician Admission Certification: I certify that this patient requires 2 or m ore midnights of care for the following reason:: After my assessment, the patient will require hospitalization for at least two midnights. This is because of the severity of symptoms shown, intensity of services needed, and/or the medical risk in this patient being treated as an outpatient. - . Bed Request Type: Telemetry Admitting Physician: Josie Reyes Patient Diagnosis: Dementia, UTI (urinary tract infection) with pyuria, Hypercarbia
[2018-10-31 01:47] VITALS: BMI 29.9
[2018-10-31] MEDS: Sodium Chloride 0.9% 1,000 ML IV SCH ×3 (01:55→21:27)
[2018-10-31 02:18] LABS: BASO # 0.1 K/uL (0.0-0.2); BASO % 1.2 % (0.0-2.0); EOS # 0.3 K/uL (0.0-0.7); EOS % 3.9 % (0.0-4.0); HEMOGLOBIN 12.6 g/dL (11.0-16.0); LYMPH # 1.7 K/uL (1.0-4.3); LYMPH % 25.4 % (20.0-40.0); MEAN CELL VOLUME 98.6 fL (81.0-99.0); MEAN CORPUSCULAR HGB CONC 30.4 g/dL (33.0-37.0); MEAN PLATELET VOLUME 10.1 fL (7.2-11.7); MONO # 0.5 K/uL (0.0-0.8); MONO % 7.7 % (0.0-10.0); NEUT # 4.1 K/uL (1.8-7.0); NEUT % 61.8 % (50.0-75.0); NRBC % 0.1 % (0.0-2.0); RBC 4.19 Mil/uL (3.80-5.20); RED CELL DISTRIBUTION WIDTH 18.6 % (11.5-14.5); WHITE BLOOD COUNT 6.6 K/uL (4.8-10.8)
[2018-10-31 02:20] LABS: VENOUS BLOOD GAS BASE EXCESS 16.4 mmol/L (0.0-2.0); VENOUS BLOOD GAS PCO2 77 mmHg (40-60); VENOUS BLOOD GAS PO2 62 mm/Hg (30-55); VENOUS BLOOD PH 7.38 (7.32-7.43)
[2018-10-31 02:22] LABS: SQUAMOUS EPITHIAL 3 /hpf (0-5); URINE BACTERIA OCC (<OCC); URINE BILIRUBIN NEGATIVE (NEGATIVE); URINE BLOOD 3+ (NEGATIVE); URINE CLARITY Hazy (Clear); URINE COLOR Amber (YELLOW); URINE GLUCOSE (UA) NORMAL (Normal); URINE HYALINE CAST 0-2 /lpf (0-2); URINE LEUKOCYTE ESTERASE 3+ Leu/uL (Negative); URINE PROTEIN 1+ mg/dL (NEGATIVE)
[2018-10-31 02:24] LABS: PROTHROMBIN TIME 10.7 SECONDS (9.7-12.2)
[2018-10-31 02:56] LABS: ALB/GLOB RATIO 1.1 (1.0-2.1); ALBUMIN 3.6 g/dL (3.5-5.0); ALT/SGPT 27 U/L (9-52); AST/SGOT 31 U/L (14-36); BLOOD UREA NITROGEN 36 mg/dL (7-17); CALCIUM 8.5 mg/dl (8.6-10.4); GFR NON-AFRICAN AMERICAN > 60
[2018-10-31] MEDS ORDERED: Moxifloxacin IV 400mg/250ml NS 400 MG/250 ML BAG IVPB ONE ×2 (02:57→04:25)
[2018-10-31 04:23] LABS: VENOUS BLOOD GAS BASE EXCESS 12.5 mmol/L (0.0-2.0); VENOUS BLOOD GAS PCO2 71 mmHg (40-60); VENOUS BLOOD GAS PO2 34 mm/Hg (30-55); VENOUS BLOOD PH 7.37 (7.32-7.43)
--- NOTE | 2018-10-31 08:08 | CP.PCM.HP ---
History of Present Illness - History of Present Illness History of Present Illness: Patient was sent from the long-term because of the increasing shortness of breath and increasing altered mental status. HPI: Patient is a 77-year-old female with a history of dementia, dysphagia, history of renal insufficiency status post a PEG tube recently hospitalized with worsening altered mental status and CO2 narcosis, was sent from the long-term for the same symptoms. During the evaluation in the emergency room patient was not able to give much information, but she was placed on high flow oxygen and sometimes on BiPAP. Patient's labs in the emergency room was nonspecific. She was having increasing worsening shortness of breath in the long-term. She did not have any vomiting nausea She has a PEG tube feeding Nonverbal mostly. Difficult time in getting the history. Most of the history was taken from the chart Patient also has stage I sacral decubiti in the past Poor poor oral intake noted. Past medical history: Advanced dementia, hypertension, renal insufficiency, sacral decubiti, contractures. Surgical history: Peg tube Family history: Noncontributory Allergies: Penicillin Personal history: Patient is a non-smoker nonalcoholic but patient is currently living in a long-term. Review of system: Patient is completely nonverbal at this time, but able to open her eyes Opening her eyes with the deep stimuli. Mild tachypnea noted. Patient is also having contractures. Sacral decubiti noted. Patient is nonverbal On examination: Vital signs noted. Mild hypoxia noted. Chest bilateral decreased air entry in the lower lung eddy noted Regular heart sounds noted Abdominal tenderness negative PEG tube noted. Contractures of the lower extremities noted ERGONOMIC SPECIALIST awake but mostly nonverbal VBG showing evidence of CO2 narcosis. CO2 retention. Also elevated serum bicarb level noted. Elevated creatinine and BUN level noted. Assessment and recommendation: 77-year-old female with a history of advanced dementia, hypertension, dysphagia, sacral decubiti admitted to the hospital to the intensive care unit with contraction alkalosis. Respiratory insufficiency. Patient probably has a CO2 narcosis associated with respiratory insufficiency Continue the BiPAP. Bronchodilators. Repeat blood gas analysis. We will place the patient on BiPAP. Repeat blood gas analysis. DVT and GI prophylaxis recommended. We will start the patient on slow IV fluid. Also we will start the feeding. Wound care recommended. We will follow-up the patient Present on Admission - Present on Admission Any Indicators Present on Admission: No History of DVT/PE: No History of Uncontrolled Diabetes: No Urinary Catheter: No Decubitus Ulcer Present: No Past Patient History - Infectious Disease Hx of Infectious Diseases: None - Past Medical History & Family History Past Medical History?: Yes - Past Social History Smoking Status: Unknown - CARDIAC Hx Hypertension: Yes Hx Pacemaker: No - PULMONARY Hx Respiratory Disorders: No - NEUROLOGICAL Hx Dementia: Yes - HEENT Other/Comment: Unknown - RENAL Hx Chronic Kidney Disease: Yes - HEMATOLOGICAL/ONCOLOGICAL Hx Cancer: No - MUSCULOSKELETAL/RHEUMATOLOGICAL Hx Falls: Yes - GASTROINTESTINAL Other/Comment: pt has PEG - GENITOURINARY/GYNECOLOGICAL Other/Comment: per long-term lerma insertion in January 2018 - PSYCHIATRIC Hx Substance Use: No - SURGICAL HISTORY Hx Mastectomy: No - ANESTHESIA Hx Anesthesia: Yes Meds Allergies/Adverse Reactions: Allergies Allergy/AdvReac Type Severity Reaction Status Date / Time Penicillins Allergy Intermediate Verified 10/13/18 15:46 Results - Vital Signs Recent Vital Signs: Last Vital Signs Temp 98.9 F 10/31/18 07:17 Pulse 92 H 10/31/18 07:17 Resp 24 10/31/18 07:17 BP 118/74 10/31/18 07:17 Pulse Ox 100 10/31/18 07:17 - Labs Result Diagrams: 10/31/18 02:12 10/31/18 02:12 Labs: Laboratory Results - last 24 hr 10/31/18 10/31/18 10/31/18 02:11 02:12 02:12 WBC 6.6 RBC 4.19 Hgb 12.6 Hct 41.4 MCV 98.6 MCH 30.0 MCHC 30.4 L RDW 18.6 H Plt Count 211 MPV 10.1 Neut % (Auto) 61.8 Lymph % (Auto) 25.4 [place] % (Auto) 7.7 Eos % (Auto) 3.9 Baso % (Auto) 1.2 Neut # (Auto) 4.1 Lymph # (Auto) 1.7 [place] # (Auto) 0.5 Eos # (Auto) 0.3 Baso # (Auto) 0.1 PT 10.7 INR 1.0 APTT 35 H pO2 VBG pH VBG pCO2 VBG HCO3 VBG Total CO2 VBG O2 Sat (Calc) VBG Base Excess VBG Potassium Glucose Lactate Crit Value Called To Crit Value Called By Crit Value Read Back Blood Gas Notified Time Sodium Potassium Chloride Carbon Dioxide Anion Gap BUN Creatinine Est GFR ( Amer) Est GFR (Non-Af Amer) Random Glucose Calcium Magnesium Total Bilirubin AST ALT Alkaline Phosphatase Total Protein Albumin Globulin Albumin/Globulin Ratio Venous Blood Potassium Urine Color Amisha Urine Clarity Hazy Urine pH 7.0 Ur Specific [place] 1.026 Urine Protein 1+ H Urine Glucose (UA) Normal Urine Ketones Negative Urine Blood 3+ H Urine Nitrate Negative Urine Bilirubin Negative Urine Urobilinogen 4.0 H Ur Leukocyte Esterase 3+ H Urine WBC (Auto) 23 H Urine RBC (Auto) 65 H Ur Squamous Epith Cells 3 Ur Transition Epith Cell 1 Urine Bacteria Occ H Hyaline Casts 0-2 10/31/18 10/31/18 10/31/18 02:12 02:14 04:19 WBC RBC Hgb Hct MCV MCH MCHC RDW Plt Count MPV Neut % (Auto) Lymph % (Auto) [place] % (Auto) Eos % (Auto) Baso % (Auto) Neut # (Auto) Lymph # (Auto) [place] # (Auto) Eos # (Auto) Baso # (Auto) PT INR APTT pO2 62 H 34 VBG pH 7.38 7.37 VBG pCO2 77 H* 71 H* VBG HCO3 37.5 33.8 VBG Total CO2 48.0 H 43.2 H VBG O2 Sat (Calc) 95.1 H 71.6 H VBG Base Excess 16.4 H 12.5 H VBG Potassium 4.4 4.0 Glucose 97 98 Lactate 1.3 1.0 Crit Value Called To Tiff Gross rn Crit Value Called By Chantelle Block power cleaner operator Crit Value Read Back Y Y Blood Gas Notified Time 220 422 Sodium 145 148.0 149.0 H Potassium 4.4 Chloride 104 111.0 H 111.0 H Carbon Dioxide 41 H* Anion Gap 4 L BUN 36 H Creatinine 0.7 Est GFR ( Amer) > 60 Est GFR (Non-Af Amer) > 60 Random Glucose 113 H Calcium 8.5 L Magnesium 2.4 H Total Bilirubin 0.5 AST 31 ALT 27 Alkaline Phosphatase 100 Total Protein 6.7 Albumin 3.6 Globulin 3.2 Albumin/Globulin Ratio 1.1 Venous Blood Potassium 4.4 4.0 Urine Color Urine Clarity Urine pH Ur Specific [place] Urine Protein Urine Glucose (UA) Urine Ketones Urine Blood Urine Nitrate Urine Bilirubin Urine Urobilinogen Ur Leukocyte Esterase Urine WBC (Auto) Urine RBC (Auto) Ur Squamous Epith Cells Ur Transition Epith Cell Urine Bacteria Hyaline Casts
--- NOTE | 2018-10-31 08:27 | CT ---
Date of service: 10/31/2018 PROCEDURE: CT HEAD WITHOUT CONTRAST. HISTORY: change mental status COMPARISON: None available. TECHNIQUE: Axial computed tomography images were obtained through the head/brain without intravenous contrast. Radiation dose: Total exam DLP = 1095.63 mGy-cm. This CT exam was performed using one or more of the following dose reduction techniques: Automated exposure control, adjustment of the mA and/or kV according to patient size, and/or use of iterative reconstruction technique. FINDINGS: HEMORRHAGE: No intracranial hemorrhage. BRAIN: No mass effect or edema. Scattered focal lucencies in the subcortical and periventricular white matter suggestive for chronic microvascular ischemic change. Left caudate head and bilateral basal ganglia lacunar infarcts. Diffuse generalized parenchymal atrophy. Additional small focal hypodensity is seen within the left frontal subcortical white matter suggestive for chronic ischemic change. VENTRICLES: Unremarkable. No hydrocephalus. CALVARIUM: Unremarkable. PARANASAL SINUSES: Unremarkable as visualized. No significant inflammatory changes. MASTOID AIR CELLS: Unremarkable as visualized. No inflammatory changes. OTHER FINDINGS: Intracranial arterial calcifications. IMPRESSION: No acute intracranial abnormality. Severe chronic microvascular ischemic changes. Left caudate head and bilateral basal ganglia lacunar infarcts. Small focal hypodensity seen within the left frontal subcortical white matter suggestive ischemic change. If symptoms persists, consider correlation MRI. A preliminary report was generated at 3:45 a.m. on 10/31/[address] Lesly Tello from [employer].
[2018-10-31] MEDS ORDERED: Albuterol-Ipratrop 3 mg / 0.5 (3 ml) UD IH PRN (08:30)
[2018-10-31 09:17] LABS: ABG ALLEN TEST POS; ARTERIAL BLOOD GAS HCO3 38.4 mmol/L (21-28); ARTERIAL BLOOD GAS HEMOGLOBIN 12.1 g/dL (11.7-17.4); ARTERIAL BLOOD GAS O2 SAT 99.8 % (95-98); ARTERIAL BLOOD GAS PCO2 62 mm/Hg (35-45); ARTERIAL BLOOD GAS PH 7.46 (7.35-7.45); ARTERIAL BLOOD GAS PO2 148 mm/Hg (80-100)
[2018-10-31] MEDS: Pantoprazole 40 mg Susp UD PEG SCH (11:49)
--- NOTE | 2018-10-31 12:40 | RAD ---
HISTORY: SOB COMPARISON: Chest x-ray performed 10/20/18 TECHNIQUE: Chest, one view. FINDINGS: Markedly limited by habitus, hypoinflation, and patient obliquity. LUNGS: Mild atelectasis/infiltrate within the medial right lower lobe. Please note that chest x-ray has limited sensitivity for the detection of pulmonary masses. PLEURA: No significant pleural effusion identified. No definite pneumothorax . CARDIOVASCULAR: Borderline cardiomegaly. Dense atherosclerotic calcifications of the aorta. Interloop recorder projects over the left heart border/medial chest. OSSEOUS STRUCTURES: Degenerative changes. VISUALIZED UPPER ABDOMEN: Elevation of the right hemidiaphragm. OTHER FINDINGS: None. IMPRESSION: Marked hypoinflation. Mild atelectasis/infiltrate within the medial right lower lobe. Borderline cardiomegaly.
--- NOTE | 2018-11-01 07:38 | CP.PCM.PN ---
Subjective - Date & Time of Evaluation Date of Evaluation: 11/01/18 Time of Evaluation: 07:36 - Subjective Subjective: Patient is today more awake. She is on BiPAP at this time. Not in any distress. But a mild accessory muscle dominance noted. On examination: Vital signs stable. Chest good air entry Regular heart sounds noted Nontender abdomen Patient is currently receiving bolus feeding. Assessment and recommendation: 77-year-old female admitted to the hospital with altered mental status. Worsening respiratory status. COPD exacerbation with respiratory failure acute on chronic. Dysphagia, status post PEG tube. We will continue the hydration. Continue the feeding. BiPAP as tolerated. We will try the BiPAP slow weaning to nasal cannula and once she tolerates possible discharge plan to rehab. Overall prognosis very poor no advance directives Objective - Vital Signs/Intake and Output Vital Signs (last 24 hours): Temp Pulse Resp BP Pulse Ox 98.4 F 84 22 105/67 100 10/31/18 23:30 11/01/18 05:07 10/31/18 23:30 10/31/18 23:30 10/31/18 23:30 Intake and Output: 11/01/18 11/01/18 06:59 18:59 Intake Total 1050 Output Total 1200 Balance -150 - Medications Medications: Current Medications Acetaminophen (Tylenol 325mg Tab) 650 mg PEG Q4H PRN PRN Reason: Pain, Mild (1-3) Acetaminophen (Tylenol 325mg Tab) 650 mg PEG Q4 PRN PRN Reason: Fever >100.4 F Albuterol/Ipratropium (Duoneb 3 Mg/0.5 Mg (3 Ml) Ud) 3 ml IH Q4H PRN PRN Reason: Shortness of Breath Furosemide (Lasix) 40 mg IVP DAILY [facility] Last Admin: 10/31/18 11:51 Dose: 40 mg Heparin Sodium (Porcine) (Heparin) 5,000 units SC Q8H [facility] Last Admin: 11/01/18 00:28 Dose: 5,000 units Hydralazine HCl (Apresoline) 50 mg PEG TID [facility] Last Admin: 10/31/18 17:00 Dose: 50 mg Sodium Chloride (Sodium Chloride 0.9%) 1,000 mls @ 100 mls/hr IV .Q10H [facility] Last Admin: 10/31/18 21:27 Dose: 100 mls/hr Lactulose (Enulose) 20 gm GT DAILY PRN PRN Reason: Constipation Pantoprazole Sodium (Protonix Susp) 40 mg PEG DAILY [facility] Last Admin: 10/31/18 11:49 Dose: 40 mg - Labs Labs: 10/31/18 02:12 10/31/18 02:12 PT 10.7 SECONDS (9.7-12.2) 10/31/18 02:12 INR 1.0 10/31/18 02:12 APTT 35 SECONDS (21-34) H 10/31/18 02:12
[2018-11-01] MEDS: Sodium Chloride 0.9% 1,000 ML IV SCH (10:26)
[2018-11-01] MEDS: Pantoprazole 40 mg Susp UD PEG SCH (10:28)
--- NOTE | 2018-11-01 17:25 | CARD ---
APPROVED REPORT Date of service: 10/31/2018 EKG Measurement Heart [id number] <Conclusion> Normal sinus rhythm with sinus arrhythmia Left axis deviation Anterior infarct, age undetermined T wave abnormality, consider lateral ischemia Abnormal ECG
[2018-11-02] MEDS: Sodium Chloride 0.9% 1,000 ML IV SCH (05:58)
[2018-11-02 07:33] LABS: BASO % 0.8 % (0.0-2.0); EOS # 0.3 K/uL (0.0-0.7); EOS % 4.7 % (0.0-4.0); HEMOGLOBIN 11.7 g/dL (11.0-16.0); LYMPH # 1.1 K/uL (1.0-4.3); LYMPH % 20.4 % (20.0-40.0); MEAN CELL VOLUME 99.4 fL (81.0-99.0); MEAN CORPUSCULAR HEMOGLOBIN 30.5 pg (27.0-31.0); MEAN CORPUSCULAR HGB CONC 30.7 g/dL (33.0-37.0); MONO # 0.4 K/uL (0.0-0.8); MONO % 7.6 % (0.0-10.0); NEUT # 3.7 K/uL (1.8-7.0); NEUT % 66.5 % (50.0-75.0); RBC 3.85 Mil/uL (3.80-5.20); RED CELL DISTRIBUTION WIDTH 18.5 % (11.5-14.5); WHITE BLOOD COUNT 5.5 K/uL (4.8-10.8)
--- NOTE | 2018-11-02 07:40 | CP.PCM.PN ---
Subjective - Date & Time of Evaluation Date of Evaluation: 11/02/18 Time of Evaluation: 07:37 - Subjective Subjective: Thank you patient is today more awake and responding. She still using the BiPAP during the daytime also. On examination: Vital signs are stable. Blood pressure is controlled well. Chest good air entry Regular heart sounds noted Abdomen soft. Extremities contractures noted Patient's labs reviewed Assessment and recommendation: 77-year-old female with a history of dementia, contractures mostly bedridden status post PEG secondary to dysphagia. Will hold the BiPAP as needed. If she tolerates nasal cannula patient possibly can be discharged to rehab Yesterday's blood culture showing evidence of gram-positive cocci but most likely contamination at this time. No antibiotic needed. There is no evidence of any signs of infection at this time Objective - Vital Signs/Intake and Output Vital Signs (last 24 hours): Temp Pulse Resp BP Pulse Ox 99 F 73 20 120/70 99 11/01/18 23:15 11/02/18 05:08 11/01/18 23:15 11/01/18 23:15 11/01/18 23:15 Intake and Output: 11/02/18 11/02/18 06:59 18:59 Output Total 300 Balance -300 - Medications Medications: Current Medications Acetaminophen (Tylenol 325mg Tab) 650 mg PEG Q4H PRN PRN Reason: Pain, Mild (1-3) Acetaminophen (Tylenol 325mg Tab) 650 mg PEG Q4 PRN PRN Reason: Fever >100.4 F Albuterol/Ipratropium (Duoneb 3 Mg/0.5 Mg (3 Ml) Ud) 3 ml IH Q4H PRN PRN Reason: Shortness of Breath Heparin Sodium (Porcine) (Heparin) 5,000 units SC Q8H [facility] Last Admin: 11/02/18 03:13 Dose: 5,000 units Hydralazine HCl (Apresoline) 25 mg PEG BID [facility] Last Admin: 11/01/18 21:10 Dose: 25 mg Sodium Chloride (Sodium Chloride 0.9%) 1,000 mls @ 45 mls/hr IV .[id number] [facility] Last Admin: 11/01/18 10:26 Dose: 45 mls/hr Lactulose (Enulose) 20 gm GT DAILY PRN PRN Reason: Constipation Pantoprazole Sodium (Protonix Susp) 40 mg PEG DAILY [facility] Last Admin: 11/01/18 10:28 Dose: 40 mg - Labs Labs: 10/31/18 02:12 10/31/18 02:12 PT 10.7 SECONDS (9.7-12.2) 10/31/18 02:12 INR 1.0 10/31/18 02:12 APTT 35 SECONDS (21-34) H 10/31/18 02:12
[2018-11-02 08:07] LABS: ALB/GLOB RATIO 1.2 (1.0-2.1); ALBUMIN 3.2 g/dL (3.5-5.0); ALT/SGPT 31 U/L (9-52); AST/SGOT 42 U/L (14-36); BLOOD UREA NITROGEN 31 mg/dL (7-17); CALCIUM 8.4 mg/dl (8.6-10.4); GFR NON-AFRICAN AMERICAN > 60
[2018-11-02] MEDS: Pantoprazole 40 mg Susp UD PEG SCH (09:59)
--- NOTE | 2018-11-02 11:39 | RAD ---
Date of service: 11/02/2018 HISTORY: [facility] COMPARISON: 10/31/2018 FINDINGS: LUNGS: Technically limited examination due to poor inspiratory effort and apical lordotic technique. There is an opacity about the right hilum which appears circumscribed. Its significance is uncertain. This may be artifactual due to an object extrinsic to the patient. Repeat chest radiograph advised. Rule out pneumonia. PLEURA: No significant pleural effusion identified, no pneumothorax apparent. CARDIOVASCULAR: No aortic atherosclerotic calcification present. Normal cardiac size. No pulmonary vascular congestion. OSSEOUS STRUCTURES: No significant abnormalities. VISUALIZED UPPER ABDOMEN: Normal. OTHER FINDINGS: None. IMPRESSION: Limited examination. Abnormal right perihilar opacity. Marked circumscripta case of this opacity raises suspicion of an extrinsic object. Recommend repeat chest radiograph.
[2018-11-03] MEDS: Sodium Chloride 0.9% 1,000 ML IV SCH (05:55)
[2018-11-03] MEDS: Pantoprazole 40 mg Susp UD PEG SCH (09:36)
--- NOTE | 2018-11-03 18:04 | CP.PCM.PN ---
Subjective - Date & Time of Evaluation Date of Evaluation: 11/03/18 Time of Evaluation: 18:02 - Subjective Subjective: Patient is more awake today, but at this time patient is feeling somewhat hard. Vomiting to touch noted. Mild respiratory distress also noted. Patient is awake with a simple commands. Patient is tolerating the PEG tube feeding. Vital signs otherwise stable. Low-grade temperature noted. Chest minimal expiratory wheezing noted Regular heart sounds noted Nontender abdomen. Patient has extremities contracted Assessment and recommendation: Patient is a 77-year-old female with advanced dementia, contractures, and also having dysphagia, PEG tube. Right now having febrile illness likely. I recommended chest x-ray, blood gas analysis. We will get a CBC and CMP and will follow the patient. Patient may need antibiotic if the WBC is elevated Objective - Vital Signs/Intake and Output Vital Signs (last 24 hours): Temp Pulse Resp BP Pulse Ox 99.2 F 82 20 132/80 98 11/03/18 15:00 11/03/18 15:00 11/03/18 15:00 11/03/18 15:00 11/03/18 15:00 Intake and Output: 11/03/18 11/03/18 06:59 18:59 Intake Total 780 Balance 780 - Medications Medications: Current Medications Acetaminophen (Tylenol 325mg Tab) 650 mg PEG Q4H PRN PRN Reason: Pain, Mild (1-3) Acetaminophen (Tylenol 325mg Tab) 650 mg PEG Q4 PRN PRN Reason: Fever >100.4 F Albuterol/Ipratropium (Duoneb 3 Mg/0.5 Mg (3 Ml) Ud) 3 ml IH Q4H PRN PRN Reason: Shortness of Breath Hydralazine HCl (Apresoline) 25 mg PEG BID [facility] Last Admin: 11/03/18 17:55 Dose: 25 mg Lactulose (Enulose) 20 gm GT DAILY PRN PRN Reason: Constipation Pantoprazole Sodium (Protonix Susp) 40 mg PEG DAILY [facility] Last Admin: 11/03/18 09:36 Dose: 40 mg - Labs Labs: 11/02/18 07:14 11/02/18 07:14 PT 10.7 SECONDS (9.7-12.2) 10/31/18 02:12 INR 1.0 10/31/18 02:12 APTT 35 SECONDS (21-34) H 10/31/18 02:12
--- NOTE | 2018-11-03 18:32 | RAD ---
HISTORY: [facility] COMPARISON: Chest x-ray performed 11/02/18 TECHNIQUE: Chest, one view. FINDINGS: Examination limited by habitus, hypoinflation, and patient obliquity. LUNGS: Central vascular congestion. Patchy bibasilar infiltrates or atelectasis. No definite pneumothorax. CARDIOVASCULAR: Partially obscured grossly stable cardiomediastinal silhouette. Dense atherosclerotic calcifications of an ectatic aorta. Interloop recording device projects over the mediastinum. OSSEOUS STRUCTURES: Osseous demineralization. Degenerative changes. VISUALIZED UPPER ABDOMEN: Marked elevation of the right hemidiaphragm. OTHER FINDINGS: None. IMPRESSION: Limited study. Hypoinflation. Marked elevation of the right hemidiaphragm. Central vascular congestion. Patchy bibasilar infiltrates or atelectasis.
[2018-11-03 18:58] LABS: ARTERIAL BLOOD GAS HCO3 35.1 mmol/L (21-28); ARTERIAL BLOOD GAS O2 SAT 98.7 % (95-98); ARTERIAL BLOOD GAS PCO2 79 mm/Hg (35-45); ARTERIAL BLOOD GAS PH 7.34 (7.35-7.45); ARTERIAL BLOOD GAS PO2 92 mm/Hg (80-100)
[2018-11-03 19:53] LABS: BASO # 0.1 K/uL (0.0-0.2); BASO % 1.2 % (0.0-2.0); EOS # 0.4 K/uL (0.0-0.7); EOS % 7.6 % (0.0-4.0); LYMPH # 0.9 K/uL (1.0-4.3); MEAN CELL VOLUME 100.3 fL (81.0-99.0); MEAN CORPUSCULAR HEMOGLOBIN 30.3 pg (27.0-31.0); MEAN CORPUSCULAR HGB CONC 30.3 g/dL (33.0-37.0); MEAN PLATELET VOLUME 9.7 fL (7.2-11.7); MONO # 0.4 K/uL (0.0-0.8); MONO % 7.3 % (0.0-10.0); NEUT # 3.4 K/uL (1.8-7.0); NEUT % 65.9 % (50.0-75.0); RBC 3.97 Mil/uL (3.80-5.20); RED CELL DISTRIBUTION WIDTH 18.7 % (11.5-14.5); WHITE BLOOD COUNT 5.1 K/uL (4.8-10.8)
[2018-11-03 20:07] LABS: ALB/GLOB RATIO 1.2 (1.0-2.1); ALBUMIN 3.2 g/dL (3.5-5.0); ALT/SGPT 31 U/L (9-52); AST/SGOT 40 U/L (14-36); BLOOD UREA NITROGEN 28 mg/dL (7-17); CALCIUM 8.4 mg/dl (8.6-10.4); GFR NON-AFRICAN AMERICAN > 60
--- NOTE | 2018-11-04 07:52 | CP.PCM.DIS ---
Provider - Provider Date of Admission: 10/31/18 04:28 Attending physician: Josie Reyes MD Time Spent in preparation of Discharge (in minutes): 45 Hospital Course - Lab Results Lab Results: Micro Results 10/31/18 02:20 Blood Blood Culture - Preliminary NO GROWTH AFTER 4 DAYS 10/31/18 02:19 Blood S.aureus & Coag-Neg Staph PNA FISH - Final 10/31/18 02:19 Blood Blood Culture - Final Coagulase Neg Staphylococcus 10/31/18 02:19 Blood Gram Stain - Final Most Recent Lab Values WBC 5.1 K/uL (4.8-10.8) 11/03/18 19:49 RBC 3.97 Mil/uL (3.80-5.20) 11/03/18 19:49 Hgb 12.0 g/dL (11.0-16.0) 11/03/18 19:49 Hct 39.0 % (34.0-47.0) 11/03/18 19:49 MCV 100.3 fL (81.0-99.0) H 11/03/18 19:49 MCH 30.3 pg (27.0-31.0) 11/03/18 19:49 MCHC 30.3 g/dL (33.0-37.0) L 11/03/18 19:49 RDW 18.7 % (11.5-14.5) H 11/03/18 19:49 Plt Count 181 K/uL (130-400) 11/03/18 19:49 MPV 9.7 fL (7.2-11.7) 11/03/18 19:49 Neut % (Auto) 65.9 % (50.0-75.0) 11/03/18 19:49 Lymph % (Auto) 18.0 % (20.0-40.0) L 11/03/18 19:49 [place] % (Auto) 7.3 % (0.0-10.0) 11/03/18 19:49 Eos % (Auto) 7.6 % (0.0-4.0) H 11/03/18 19:49 Baso % (Auto) 1.2 % (0.0-2.0) 11/03/18 19:49 Neut # (Auto) 3.4 K/uL (1.8-7.0) 11/03/18 19:49 Lymph # (Auto) 0.9 K/uL (1.0-4.3) L 11/03/18 19:49 [place] # (Auto) 0.4 K/uL (0.0-0.8) 11/03/18 19:49 Eos # (Auto) 0.4 K/uL (0.0-0.7) 11/03/18 19:49 Baso # (Auto) 0.1 K/uL (0.0-0.2) 11/03/18 19:49 PT 10.7 SECONDS (9.7-12.2) 10/31/18 02:12 INR 1.0 10/31/18 02:12 APTT 35 SECONDS (21-34) H 10/31/18 02:12 Puncture Site Rra 11/03/18 18:49 pCO2 79 mm/Hg (35-45) H* 11/03/18 18:49 pO2 92 mm/Hg (80-100) 11/03/18 18:49 HCO3 35.1 mmol/L (21-28) H 11/03/18 18:49 ABG pH 7.34 (7.35-7.45) L 11/03/18 18:49 ABG Total CO2 45.0 mmol/L (22-28) H 11/03/18 18:49 ABG O2 Saturation 98.7 % (95-98) H 11/03/18 18:49 ABG Base Excess 13.1 mmol/L (-2.0-3.0) H 11/03/18 18:49 ABG Hemoglobin 12.1 g/dL (11.7-17.4) 10/31/18 09:14 ABG Carboxyhemoglobin 3.0 % (0.5-1.5) H 10/31/18 09:14 POC ABG HHb (Measured) 0.2 % (0.0-5.0) 10/31/18 09:14 ABG Methemoglobin 1.7 % (0.0-3.0) 10/31/18 09:14 Zhen Test Na 11/03/18 18:49 ABG Potassium 4.3 mmol/L (3.6-5.2) 11/03/18 18:49 VBG pH 7.37 (7.32-7.43) 10/31/18 04:19 VBG pCO2 71 mmHg (40-60) H* 10/31/18 04:19 VBG HCO3 33.8 mmol/L 10/31/18 04:19 VBG Total CO2 43.2 mmol/L (22-28) H 10/31/18 04:19 VBG O2 Sat (Calc) 71.6 % (40-65) H 10/31/18 04:19 VBG Base Excess 12.5 mmol/L (0.0-2.0) H 10/31/18 04:19 VBG Potassium 4.0 mmol/L (3.6-5.2) 10/31/18 04:19 A-a O2 Difference 131.0 mm/Hg 10/31/18 09:14 Respiratory Index 0.9 10/31/18 09:14 Hgb O2 Saturation 95.2 % (95.0-98.0) 10/31/18 09:14 Sodium 152.0 mmol/l (132-148) H 11/03/18 18:49 Chloride 115.0 mmol/L (98-107) H 11/03/18 18:49 Glucose 99 mg/dl (65-105) 11/03/18 18:49 Lactate 0.7 mmol/L (0.7-2.1) 11/03/18 18:49 Liter Flow 3.0 11/03/18 18:49 Vent Mode Bipap 10/31/18 09:14 FiO2 50.0 % 10/31/18 09:14 Inspiratory BiPAP 10 10/31/18 09:14 Expiratory BiPAP 5 10/31/18 09:14 Crit Value Called To Brittney cabrera rn 11/03/18 18:49 Crit Value Called By Bladimir 11/03/18 18:49 Crit Value Read Back Y 11/03/18 18:49 Blood Gas Notified Time 1857 11/03/18 18:49 Sodium 148 mmol/L (132-148) 11/03/18 19:49 Potassium 4.5 mmol/L (3.6-5.2) 11/03/18 19:49 Chloride 109 mmol/L (98-107) H 11/03/18 19:49 Carbon Dioxide 37 mmol/L (22-30) H 11/03/18 19:49 Anion Gap 6 (10-20) L 11/03/18 19:49 BUN 28 mg/dL (7-17) H 11/03/18 19:49 Creatinine 0.6 mg/dL (0.7-1.2) L 11/03/18 19:49 Est GFR ( Amer) > 60 11/03/18 19:49 Est GFR (Non-Af Amer) > 60 11/03/18 19:49 POC Glucose (mg/dL) 103 mg/dL (65-110) 11/03/18 06:47 Random Glucose 99 mg/dL (65-105) 11/03/18 19:49 Calcium 8.4 mg/dl (8.6-10.4) L 11/03/18 19:49 Phosphorus 3.4 mg/dL (2.5-4.5) 11/02/18 07:14 Magnesium 2.2 mg/dL (1.6-2.3) 11/02/18 07:14 Total Bilirubin 0.7 mg/dL (0.2-1.3) 11/03/18 19:49 AST 40 U/L (14-36) H 11/03/18 19:49 ALT 31 U/L (9-52) 11/03/18 19:49 Alkaline Phosphatase 108 U/L (38-126) 11/03/18 19:49 Total Protein 5.9 g/dL (6.3-8.3) L 11/03/18 19:49 Albumin 3.2 g/dL (3.5-5.0) L 11/03/18 19:49 Globulin 2.6 gm/dL (2.2-3.9) 11/03/18 19:49 Albumin/Globulin Ratio 1.2 (1.0-2.1) 11/03/18 19:49 Arterial Blood Potassium 4.3 mmol/L (3.6-5.2) 11/03/18 18:49 Venous Blood Potassium 4.0 mmol/L (3.6-5.2) 10/31/18 04:19 Urine Color Amisha (YELLOW) 10/31/18 02:11 Urine Clarity Hazy (Clear) 10/31/18 02:11 Urine pH 7.0 (5.0-8.0) 10/31/18 02:11 Ur Specific [place] 1.026 (1.003-1.030) 10/31/18 02:11 Urine Protein 1+ mg/dL (NEGATIVE) H 10/31/18 02:11 Urine Glucose (UA) Normal mg/dL (Normal) 10/31/18 02:11 Urine Ketones Negative mg/dL (NEGATIVE) 10/31/18 02:11 Urine Blood 3+ (NEGATIVE) H 10/31/18 02:11 Urine Nitrate Negative (NEGATIVE) 10/31/18 02:11 Urine Bilirubin Negative (NEGATIVE) 10/31/18 02:11 Urine Urobilinogen 4.0 mg/dL (0.2-1.0) H 10/31/18 02:11 Ur Leukocyte Esterase 3+ Hue/uL (Negative) H 10/31/18 02:11 Urine WBC (Auto) 23 /hpf (0-5) H 10/31/18 02:11 Urine RBC (Auto) 65 /hpf (0-3) H 10/31/18 02:11 Ur Squamous Epith Cells 3 /hpf (0-5) 10/31/18 02:11 Ur Transition Epith Cell 1 /hpf (0-3) 10/31/18 02:11 Urine Bacteria Occ (<OCC) H 10/31/18 02:11 Hyaline Casts 0-2 /lpf (0-2) 10/31/18 02:11 - Hospital Course Hospital Course: Patient was sent from the [facility] because of the increasing shortness of breath and increasing altered mental status. HPI: Patient is a 77-year-old female with a history of dementia, dysphagia, history of renal insufficiency status post a PEG tube recently hospitalized with worsening altered mental status and CO2 narcosis, was sent from the [facility] for the same symptoms. During the evaluation in the emergency room patient was not able to give much information, but she was placed on high flow oxygen and sometimes on BiPAP. Patient's labs in the emergency room was nonspecific. She was having increasing worsening shortness of breath in the [facility]. She did not have any vomiting nausea She has a PEG tube feeding Nonverbal mostly. Difficult time in getting the history. Most of the history was taken from the chart Patient also has stage I sacral decubiti in the past Poor poor oral intake noted. Past medical history: Advanced dementia, hypertension, renal insufficiency, sacral decubiti, contractures. Surgical history: Peg tube Family history: Noncontributory Allergies: Penicillin Personal history: Patient is a non-smoker nonalcoholic but patient is currently living in a [facility]. Review of system: Patient is completely nonverbal at this time, but able to open her eyes Opening her eyes with the deep stimuli. Mild tachypnea noted. Patient is also having contractures. Sacral decubiti noted. Patient is nonverbal On examination: Vital signs noted. Mild hypoxia noted. Chest bilateral decreased air entry in the lower lung eddy noted Regular heart sounds noted Abdominal tenderness negative PEG tube noted. Contractures of the lower extremities noted SOFTWARE ARCHITECT awake but mostly nonverbal VBG showing evidence of CO2 narcosis. CO2 retention. Also elevated serum bicarb level noted. Elevated creatinine and BUN level noted. Assessment and recommendation: 77-year-old female with a history of advanced dementia, hypertension, dysphagia, sacral decubiti admitted to the hospital to the intensive care unit with contraction alkalosis. Respiratory insufficiency. Patient probably has a CO2 narcosis associated with respiratory insufficiency Continue the BiPAP. Bronchodilators. Repeat blood gas analysis. We will place the patient on BiPAP. Repeat blood gas analysis. DVT and GI prophylaxis recommended. We will start the patient on slow IV fluid. Also we will start the feeding. Wound care recommended. We will follow-up the patient Course in the hospital: Patient admitted to the sixth floor, placed on BiPAP. Over the next 2 days patient was using the BiPAP continuously. Patient become more awake and responding. Blood gas analysis showing evidence of CO2 retention. Yesterday again she had a minimal CO2 retention. Last night the patient was using the BiPAP. Following that the patient have a significant improvement. In my opinion patient will need BiPAP 12/6, continuously with at least oxygen supplementation 4 L or 40% along with the BiPAP. Patient is also given Lasix. Yesterday's chest x-ray nonspecific, no infiltrate noted, right diaphragm is elevated noted. Blood culture was contaminated WBC was normal Patient is clinically otherwise stable. I will discharge the patient to rehab. She will continue nebulizer, BiPAP as needed, and A. fib PEG tube feeding. She will also be receiving Lasix as needed DVT prophylaxis Final diagnosis acute on chronic respiratory insufficiency and on BiPAP. Patient will need oxygen and BiPAP Dementia advanced. Sacral decubiti unstageable. We will follow the patient. Discharge Plan - Follow Up Plan Condition: GUARDED Disposition: HOME/ ROUTINE
[2018-11-04 08:36] VITALS: PULSE 92; RESP 18; TEMP 99.3; O2SAT 96
[2018-11-04] MEDS: Pantoprazole 40 mg Susp UD PEG SCH (09:45)
[2018-11-04 12:29] VITALS: BP 143/82
== END 2018-11-04 13:20 | DRG 189 ==
LOC: C.ER 01:27 → C.9E 04:28 → C.6T 07:55
PROVIDERS: ADMIT Internal Medicine; ATTEND Internal Medicine
PROC: 5A09457 Assistance with Respiratory Ventilation, 24-96 Consecutive Hours, Continuous Positive Airway Pressure (ICD-10-PCS; principal; 2018-10-31)
DX: J96.21 Acute and chronic respiratory failure with hypoxia (principal); J44.1 Chronic obstructive pulmonary disease with (acute) exacerbation; N39.0 Urinary tract infection, site not specified; E87.2 Acidosis; F03.90 Unspecified dementia, unspecified severity, without behavioral disturbance, psychotic disturbance, mood disturbance, and anxiety; N18.9 Chronic kidney disease, unspecified; R13.10 Dysphagia, unspecified; Z93.1 Gastrostomy status; I12.9 Hypertensive chronic kidney disease with stage 1 through stage 4 chronic kidney disease, or unspecified chronic kidney disease; Z74.01 Bed confinement status; M24.50 Contracture, unspecified joint; L89.159 Pressure ulcer of sacral region, unspecified stage